=== PATIENT | female | born 1990 | race Caucasian/White ===

== ENCOUNTER 2019-06-13 16:49 | Emergency (ER) | payer SELFPAY | END 2019-06-13 20:01 | disposition home or self-care (01) | PROVIDERS: Family Provider Family Medicine | DX: N20.1 Calculus of ureter (principal); F17.210 Nicotine dependence, cigarettes, uncomplicated; Z88.5 Allergy status to narcotic agent; Z86.73 Personal history of transient ischemic attack (TIA), and cerebral infarction without residual deficits | CPT/HCPCS: 36415; 74177; 80053; 81001; 81025; 83690; 85025; 87086; 96374; 96375; 96376; 99284; J2270 ×2; J2405; Q9967 ==

== ENCOUNTER 2019-06-19 09:46 | Outpatient (CLI) | payer MEDICAID, SELFPAY ==
--- NOTE | 2019-06-19 09:50 | XRR_ITS ---
PROCEDURE INFORMATION: Exam: XR Abdomen, 1 View Exam date and time: 06/19/2019 10:23 AM Age: 28 years old Clinical indication: Condition or disease; Other: HX of right side kidney stone; Prior surgery; Surgery date: 6+ months; Surgery type: C section, date not provided; Additional info: N20.1. TECHNIQUE: Imaging protocol: XR of the abdomen. Views: Frontal supine view of the abdomen. 1 View. COMPARISON: CT Abdomen/Pelvis w IV* [id number] 06/13/2019 7:11 PM FINDINGS: Gastrointestinal tract: The bowel gas pattern is nonspecific. Air filled large bowel including distal rectal gas. Organs: Renal calcification on the left superiorly. 7-8 mm. Small presumed renal calcifications on the right of approximately 4 mm and 3 mm. Tiny renal calcification lower pole left kidney 2 mm. Bones/joints: Unremarkable. XR/XR KUB [id number] IMPRESSION: The bowel gas pattern is nonspecific. Air filled large bowel including distal rectal gas.
== END 2019-06-19 09:47 | disposition home or self-care (01) ==
PROVIDERS: Family Provider Family Medicine; PCP Urology; Visit Provider Urology
DX: Z87.442 Personal history of urinary calculi (principal)
CPT/HCPCS: 74018; 81001; 87086

== ENCOUNTER 2019-06-26 09:58 | Outpatient (CLI) | payer MEDICAID, SELFPAY ==
--- NOTE | 2019-06-26 09:45 | XR_ITS ---
WS: [id number] KUB, 06/26/2019 Clinical Data: ureteral calculus Comparison: KUB, 06/19/2019 Findings: There is a 0.7 cm calcification overlying the upper pole the left kidney and smaller calcifications o verlying the inferior pole of the left kidney. There are also 2 adjacent calcifications overlying the upper pole of the right kidney. There is a probable phlebolith in the left side of the true pelvis. XR/XR KUB [id number] Impression: 1. Bilateral renal calculi unchanged. 2. Presumed phleboliths on the left side of the true pelvis.
== END 2019-06-26 09:59 | disposition home or self-care (01) ==
LOC: RAD 10:02
PROVIDERS: Family Provider Family Medicine; PCP Family Medicine; Visit Provider Urology
DX: N20.0 Calculus of kidney (principal)
CPT/HCPCS: 74018; 81001

== ENCOUNTER 2019-06-30 09:17 | Outpatient (CLI) | payer MEDICAID, SELFPAY ==
--- NOTE | 2019-06-30 09:35 | CT_ITS ---
WS: [id number] CT ABDOMEN PELVIS TECHNIQUE: Noncontrast CT of the abdomen and pelvis with coronal and sagittal reformatted images. CLINICAL INFORMATION: RIGHT URETERAL CALCULUS/CALCULUS OF URETER COMPARISON: DLP: 2197.[address] scans at [facility] use at least one of these dose optimization techniques: automat ed exposure control; mA and/or kV adjustment per patient size (includes targeted exams where dose is matched to clinical indication); or iterative reconstruction. FINDINGS: Noncontrast liver is normal. Normal gallbladder. Normal spleen. Normal gastroesophageal junction. Sli ght atelectasis in the lung bases. Adrenal glands are normal. Bilateral subcentimeter calyceal tip calculi. Previously described right U VJ calculus no longer visualized. Right hydronephrosis has resolved. No obstructing calculi today. Pe lvic phleboliths. Normal caliber abdominal aorta. Interval decrease in size of the right ovarian cyst . CT/CT kidney stone [id number] IMPRESSION: 1. Previously described right UVJ calculus has resolved. No obstructing renal or ureteral calculi today. 2. Subcentimeter bilateral calyceal tip calculi. 3. Previously described right ovarian cyst has resolved.
== END 2019-06-30 09:18 | disposition home or self-care (01) ==
LOC: RAD 09:19
PROVIDERS: Family Provider Family Medicine; PCP Family Medicine; Visit Provider Urology
DX: N20.0 Calculus of kidney (principal)
CPT/HCPCS: 74176; 81001

== ENCOUNTER 2019-08-30 12:23 | Outpatient (RCR) | payer MEDICAID, SELFPAY | END 2019-09-12 23:59 | disposition home or self-care (01) | LOC: SPT 12:23 | PROVIDERS: Family Provider Family Medicine; PCP Family Medicine; Referring Provider Family Medicine; Visit Provider Family Medicine | DX: M54.16 Radiculopathy, lumbar region (principal) | CPT/HCPCS: 97161 ==

== ENCOUNTER 2019-09-13 06:00 | Outpatient (RCR) | payer MEDICAID, SELFPAY | END 2019-10-12 23:59 | disposition home or self-care (01) | LOC: SPT 06:00 | PROVIDERS: Family Provider Family Medicine; PCP Family Medicine; Referring Provider Family Medicine; Visit Provider Family Medicine | DX: M54.16 Radiculopathy, lumbar region (principal) | CPT/HCPCS: 97110; G0283 ==

== ENCOUNTER 2020-02-07 13:16 | Outpatient (CLI) | payer MEDICAID, SELFPAY ==
--- NOTE | 2020-02-07 13:36 | XR_ITS ---
WS: [id number] LATERAL LUMBAR SPINE: 3 view. Lateral radiographs are performed in upright neutral, flexion and extension to the patient's toleranc e. HISTORY: LOW BACK PAIN COMPARISON: 07/12/2017 Normal lumbar alignment. Disc spaces and vertebral body heights are normal. No instability. XR/XR lumbar spine f/e only [id number] IMPRESSION: No lumbar spine instability.
== END 2020-02-07 13:17 | disposition home or self-care (01) ==
LOC: RADWPI 13:19
PROVIDERS: PCP Family Medicine; Visit Provider Nurse Practitioner
DX: M54.5 Low back pain (principal)
CPT/HCPCS: 72120

== ENCOUNTER 2020-02-26 11:49 | Outpatient (CLI) | payer MEDICAID, SELFPAY ==
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
== END 2020-02-26 11:50 | disposition home or self-care (01) ==
PROVIDERS: PCP Family Medicine; Visit Provider Nurse Practitioner
DX: M54.5 Low back pain (principal)
CPT/HCPCS: 72148

== ENCOUNTER 2020-05-23 13:39 | Outpatient (CLI) | payer MEDICAID, SELFPAY ==
--- NOTE | 2020-05-23 13:30 | XR_ITS ---
WS: [id number] ABDOMEN: SUPINE FILM HISTORY: BILATERAL RENAL STONES COMPARISON: 06/26/2019 Normal bowel gas pattern. Normal soft tissues and osseous structures. Right kidney: 2 adjacent calcifications in each measuring 4 mm in the upper pole. No interval change. Left kidney: 7.5 mm calcification mid kidney. No change. XR/XR KUB [id number] IMPRESSION: Bilateral nephrolithiasis without change since 06/26/2019.
== END 2020-05-23 13:40 | disposition home or self-care (01) ==
PROVIDERS: PCP Family Medicine; Visit Provider Nurse Practitioner Family
DX: N20.0 Calculus of kidney (principal)
CPT/HCPCS: 74018; 81003

== ENCOUNTER 2020-07-22 22:02 | Emergency (ER) | payer MEDICAID, SELFPAY ==
[2020-07-22 22:08] VITALS: BP 121/76; PULSE 81; RESP 18; TEMP 37.1; O2SAT 100; BMI 33.9
--- NOTE | 2020-07-22 22:12 | XRR_ITS ---
PROCEDURE INFORMATION: Exam: XR Chest, 1 View Exam date and time: 07/22/2020 10:13 PM Age: 29 years old Clinical indication: Chest pain; Type not specified TECHNIQUE: Imaging protocol: XR of the chest Views: 1 view. COMPARISON: No relevant prior studies available. FINDINGS: Lungs: Unremarkable. No consolidation. Pleural spaces: Unremarkable. No pleural effusion. No pneumothorax. Heart/Mediastinum: Unremarkable. No cardiomegaly. Bones/joints: Unremarkable. XR/XR chest 1V portable [id number] IMPRESSION: No acute findings.
--- NOTE | 2020-07-22 22:12 | ED_ITS ---
HPI - Chest Pain General: Chief Complaint: Chest Pain Stated Complaint: Chest pains, started about 4:30, 5ish Time Seen by Provider: 07/22/20 22:04 Source: patient Mode of arrival: ambulatory Limitations: no limitations History of Present Illness: HPI narrative: Patient is a 29-year-old female who presents to ED today with complaint of substernal chest pain that began around 4:30 PM at rest while watching television. Patient initially thought the discomfort might be related to heartburn so took a Prilosec tablet without relief. Patient tells me she normally suffers from heartburn but states her usual discomfort from this is located to her epigastric region. She complains of pain currently throughout her substernal region. She has no radiation to her discomfort. She does state discomfort seems to be worse with movement. No previous episodes of chest pain. She does report shortness of breath and dizziness when asked. She has no previous cardiac or pulmonary history. She denies lower extremity swelling or calf pain. No recent surgery. No prolonged periods of inactivity. She is not on any hormonal therapies. Patient is an every day smoker. MD complaint: chest pain Onset (ago): hour(s) Timing of current episode: constant Prior episodes: No Onset: during rest Pain location: substernal Pain radiation: none Severity: mild Relieving factors: nothing Exacerbating factors: palpation and movement Associated symptoms: Reports dyspnea; Deny abdominal pain, fever(s), nausea, palpitations, syncope or vomiting Treatment prior to arrival: other (Prilosec) Risk Factors: Coronary artery disease risk factors: smoking history Thoracic aortic dissection risk factors: none Review of Systems Const: Denies: fever(s), chills, body aches, fatigue or malaise Eyes: Denies: change in vision ENMT: Denies: throat pain or odynophagia Card: Reports: chest pain and lightheadedness; Denies: palpitations, irregular heart rhythm, edema, swelling of feet/ankles, syncope, pre-syncope, dyspnea on exertion, orthopnea, leg pain with exertion or acrocyanosis Resp: Reports: dyspnea; Denies: productive cough, non-productive cough, wheezing, pain on inspiration, hemoptysis or chest congestion GI: Reports: heartburn; Denies: abdominal pain, nausea, vomiting, coffee ground emesis or diarrhea : Denies: flank pain, difficulty voiding, dysuria, urinary frequency or urinary urgency Musc: Denies: neck pain, back pain, extremity pain, extremity swelling, joint pain or joint swelling Skin/Breast: Denies: rash Neuro: Denies: headache(s), numbness in extremities, weakness in extremities or sensory changes PFSH ED PFSH: Medical History Bilateral renal stones Ureteral calculus Surgical History H/O section S/P tonsillectomy Social History Smoking and tobacco status: current every day smoker Alcohol intake: never Physical Exam Const: COMMON NORMALS: no acute distress, average body habitus, patient oriented x3, no limitations, healthy appearing, alert and well nourished GENERAL APPEARANCE: cooperative ORIENTATION/CONSCIOUSNESS: Yes awake, Yes oriented to person, Yes oriented to place and Yes oriented to time HENMT: COMMON NORMALS: normocephalic and atraumatic HEAD & SCALP: normocephalic and atraumatic Chest: COMMONS NORMALS: normal inspection of the chest CHEST: Yes tenderness (anterior/TTP over sternum ) Resp: COMMON NORMALS: normal respiratory effort and clear to auscultation bilaterally AUSCULTATION: clear to auscultation bilaterally Cardio: COMMON NORMALS: regular rate and regular rhythm RATE: regular rate RHYTHM: regular rhythm GI: COMMON NORMALS: Normal to inspection, nondistended, normoactive bowel sounds present, Soft to palpation, non-tender, No hepatosplenomegaly present and no masses PALPATION: Yes Soft to palpation and Yes No hepatosplenomegaly present Extremity: COMMON NORMALS: normal to inspection, full ROM, capillary refill normal, no clubbing, cyanosis or edema and no calf tenderness GENERAL: Yes normal exam except as noted Neuro: COMMON NORMALS: patient oriented x3 SENSORIUM/ORIENTATION: Yes alert, Yes oriented to person, Yes oriented to place and Yes oriented to time Skin: COMMON NORMALS: no rashes or lesions noted GENERAL SKIN EXAM: no rashes or lesions noted Course Vital Signs: Vital signs: Vital Signs Temperature 98.7 F 07/22/20 22:08 Pulse Rate 80 07/22/20 23:18 Respiratory Rate 17 07/22/20 23:18 Blood Pressure 101/66 07/22/20 23:18 Pulse Oximetry 98 07/22/20 23:18 MDM - Chest Pain MDM Narrative: Medical decision making narrative: Patient is in no acute distress. Her vital signs are perfect. Patient's work-up including CBC, CMP, CXR, EKG, troponin are all normal. Wells score of 0. She has reproducible chest pain. No abdominal pain. Patient is stable for DC with follow up with PCP if symptoms persist. Return to ED precautions given. Lab Data: Labs: Lab Results 07/22/20 07/22/20 07/22/20 Range/Units 22:20 22:20 22:20 WBC 13.5 H (4.0-10.0) 10^3/ uL RBC 4.11 (4.1-5.3) 10^6/u L Hgb 13.2 (11.5-15.3) g/dL Hct 41.1 (37.0-47.0) % MCV 100.0 H (81-99) fL MCH 32.1 (28.0-34.0) pg MCHC 32.1 (30.0-36.0) g/dL RDW 12.4 (12.1-15.1) % Plt Count 271 (130-400) 10^3/c mm MPV 10.0 (7.4-10.4) fL Neut % (Auto) 61.6 % Lymph % (Auto) 29.5 % [place] % (Auto) 5.4 % Eos % (Auto) 2.7 % Baso % (Auto) 0.4 % Neut # (Auto) 8.31 H (1.8-7.7) 10^3/u L Lymph # (Auto) 4.0 (0.8-4.8) 10^3/u L [place] # (Auto) 0.7 (0.2-0.9) 10^3/u L Eos # (Auto) 0.4 (0.0-0.8) 10^3/u L Baso # (Auto) 0.1 (0.0-0.1) 10^3/u L Nucleated RBC % (a uto) 0 % Nucleated RBCs # 0.0 /100WBC Sodium 140 (136-145) mmol/L Potassium 3.8 (3.5-5.1) mmol/L Chloride 105 (98-107) mmol/L Carbon Dioxide 28 (22-29) mmol/L Anion Gap 10.8 (5-19) BUN 12 (6-20) mg/dL Creatinine 0.7 (0.5-0.9) mg/dL GFR Calculation 100.4 (90-130) mL/min Glucose 76 (65-115) mg/dL Calculated Osmolal ity 289 (285-295) mOsm/k g Calcium 8.8 (8.5-10.5) mg/dL Total Bilirubin 0.2 (0.15-1.2) mg/dL AST 13 (0-32) U/L ALT 17 (0-33) U/L Alkaline Phosphata se 72 (35-105) IU/L Troponin T Gen 5 n g/L 6 (0-10) ng/L Total Protein 7.0 (6.6-8.7) g/dL Albumin 3.9 (3.5-5.2) g/dL Globulin 3.1 (1.3-4.6) g/dL Imaging Data^: CXR: My impression: NAD EKG Data^: EKG 1: EKG interpretation date: 07/22/20 EKG interpretation time: 22:11 Interpretation: Sinus rhythm Rate [address] elevation or depression changes noted Artifact present Discharge Plan Discharge Patient Disposition: Home Clinical Impression: Acute chest wall pain Condition: Stable Prescriptions: No Action hydrocodone-acetaminophen [[place]] 10-325 mg tablet 1 tab PO Q6H PRNRF: 0 Discharge Orders: Discharge ED (Routine); Ordered 07/22/20 Ordered By: Cristina John Referrals: Chaka Gayle MD [Primary Care Provider] - Patient Instructions: Chest Pain - Chest Wall Coding Level of Care Code ED [employer] Consultant for Chg Fwd Exam Comprehensive
--- NOTE | 2020-07-22 22:12 | ECG_ITS ---
[facility] Test Date: 2020-07-22 Pat Name: Patrice Pack Department: Room: Gender: Female Nursing Associate: : 1990 Requested By: Cristina John Order Number: [id number] Laura MD: Daniel Ann M.D. Measurements Intervals [place] Rate: 71 P: -13 MD: 159 QRS: -1 QRSD: 93 T: 9 QT: 372 QTc: 406 Interpretive Statements SINUS RHYTHM LOW QRS VOLTAGE IN PRECORDIAL LEADS [QRS DEFLECTION < 1.0 mV IN CHEST LEADS] POSSIBLE RIGHT VENTRICULAR CONDUCTION DELAY [RSR (QR) IN V1/V2] No previous ECG available for comparison Electronically Signed On 07-23-2020 19:53:19 FUNERAL DIRECTOR AND EMBALMER by Daniel Ann M.D. [id number]
[2020-07-22 22:26] VITALS: BP 121/76; PULSE 81; RESP 17; O2SAT 99
[2020-07-22 22:32] LABS: Basophils # 0.1 10^3/uL (0.0-0.1); Basophils % 0.4 %; Eosinophils # 0.4 10^3/uL (0.0-0.8); Eosinophils % 2.7 %; Hematocrit 41.1 % (37.0-47.0); Hemoglobin 13.2 g/dL (11.5-15.3); Lymphocytes % 29.5 %; Mean Corpuscular HGB Conc 32.1 g/dL (30.0-36.0); Mean Corpuscular Hemoglobin 32.1 pg (28.0-34.0); Monocytes # 0.7 10^3/uL (0.2-0.9); Monocytes % 5.4 %; Neutrophils # 8.31 10^3/uL (1.8-7.7); Neutrophils % 61.6 %; Nucleated Red Blood Cells % 0 %; Platelet Count 271 10^3/cmm (130-400); Red Blood Count 4.11 10^6/uL (4.1-5.3); Red Cell Distribution Width 12.4 % (12.1-15.1); White Blood Count 13.5 10^3/uL (4.0-10.0)
[2020-07-22 22:52] LABS: Alanine Aminotransferase 17 U/L (0-33); Albumin Level 3.9 g/dL (3.5-5.2); Alkaline Phosphatase 72 IU/L (35-105); Anion Gap 10.8 (5-19); Aspartate Amino Transferase 13 U/L (0-32); Blood Urea Nitrogen 12 mg/dL (6-20); Calcium 8.8 mg/dL (8.5-10.5); Carbon Dioxide 28 mmol/L (22-29); Chloride 105 mmol/L (98-107); Globulin 3.1 g/dL (1.3-4.6); Glomerular Filtration Rate 100.4 mL/min (90-130); Glucose 76 mg/dL (65-115); Osmolality Calculated 289 mOsm/kg (285-295); Potassium 3.8 mmol/L (3.5-5.1); Sodium 140 mmol/L (136-145); Total Bilirubin 0.2 mg/dL (0.15-1.2)
[2020-07-22 23:00] VITALS: BP 121/76; PULSE 72; O2SAT 98
[2020-07-22 23:09] LABS: Troponin T (5th) Once 6 ng/L (0-10)
[2020-07-22 23:18] VITALS: BP 101/66; PULSE 80; RESP 17; O2SAT 98
== END 2020-07-22 23:15 | disposition home or self-care (01) ==
PROVIDERS: Emergency Provider Physician Assistant; PCP Family Medicine
DX: R07.89 Other chest pain (principal); F17.210 Nicotine dependence, cigarettes, uncomplicated
CPT/HCPCS: 12345; 71045; 80053; 84484; 85025; 93005; 99282; 99283

== ENCOUNTER 2020-10-29 21:32 | Emergency (ER) | payer MEDICAID, SELFPAY ==
[2020-10-29 21:34] VITALS: BP 111/81; PULSE 82; RESP 18; TEMP 36.9; O2SAT 100; BMI 35.2
[2020-10-29 21:48] LABS: Basophils # 0.1 10^3/uL (0.0-0.1); Basophils % 0.7 %; Eosinophils # 0.3 10^3/uL (0.0-0.8); Eosinophils % 2.3 %; Hematocrit 43.6 % (37.0-47.0); Hemoglobin 14.6 g/dL (11.5-15.3); Lymphocytes # 3.4 10^3/uL (0.8-4.8); Lymphocytes % 28.8 %; Mean Corpuscular HGB Conc 33.5 g/dL (30.0-36.0); Mean Corpuscular Volume 98.6 fL (81-99); Mean Platelet Volume 9.6 fL (7.4-10.4); Monocytes # 0.9 10^3/uL (0.2-0.9); Monocytes % 7.5 %; Neutrophils # 7.09 10^3/uL (1.8-7.7); Neutrophils % 60.3 %; Nucleated Red Blood Cells % 0 %; Platelet Count 244 10^3/cmm (130-400); Red Blood Count 4.42 10^6/uL (4.1-5.3); Red Cell Distribution Width 12.7 % (12.1-15.1); White Blood Count 11.8 10^3/uL (4.0-10.0)
[2020-10-29 21:52] LABS: Add Urine Microscopic? NO; Charge for UA Resulting for Rev
[2020-10-29 21:52] LABS: HCG Qualitative Urine. Negative (Negative)
[2020-10-29 22:04] LABS: Bilirubin Urine 1+ (Negative); Blood Urine Neg (Negative); Glucose Urine UA Norm (Normal); Ketones Urine Negative (Negative); Leukocyte Esterase Urine Negative (Negative); Nitrate Urine Negative (Negative); Protein Urine Neg (Negative); Urine Appearance Clear (CLEAR); Urine Color Yellow (Yellow); Urobilinogen Urine Norm (Negative); pH Urine 5 (5-7)
[2020-10-29 22:04] LABS: Alanine Aminotransferase 10 U/L (0-33); Albumin Level 4.3 g/dL (3.5-5.2); Alkaline Phosphatase 72 IU/L (35-105); Aspartate Amino Transferase 10 U/L (0-32); Blood Urea Nitrogen 14 mg/dL (6-20); Calcium 8.4 mg/dL (8.5-10.5); Carbon Dioxide 24 mmol/L (22-29); Chloride 102 mmol/L (98-107); Glomerular Filtration Rate 85.4 mL/min (90-130); Glucose 91 mg/dL (65-115); Lipase 85 U/L (13-60); Osmolality Calculated 284 mOsm/kg (285-295); Sodium 137 mmol/L (136-145); Total Bilirubin 0.3 mg/dL (0.15-1.2); Total Protein 7.3 g/dL (6.6-8.7)
--- NOTE | 2020-10-29 22:13 | CTR_ITS ---
PROCEDURE INFORMATION: Exam: CT Abdomen And Pelvis With Contrast Exam date and time: 10/29/2020 10:16 PM Age: 30 years old Clinical indication: Abdominal pain; Localized; Right lower quadrant (rlq); Prior surgery; Surgery type: ; Additional info: Abd pain TECHNIQUE: Imaging protocol: Computed tomography of the abdomen and pelvis with contrast. Radiation optimization: All CT scans at this facility use at least one of these dose optimization techniques: automated exposure control; mA and/or kV adjustment per patient size (includes targeted exams where dose is matched to clinical indication); or iterative reconstruction. Contrast material: OMNI 300; Contrast volume: 95 ml; Contrast route: INTRAVENOUS (IV); COMPARISON: CT Abdomen/Pelvis w IV* [id number] 06/13/2019 7:11 PM RADIATION DOSE METRICS: Total DLP (mGy-cm): 2034.47 FINDINGS: Liver: Normal. No mass. Gallbladder and bile ducts: Normal. No calcified stones. No ductal dilation. Pancreas: Normal. No ductal dilation. Spleen: Normal. No splenomegaly. Adrenal glands: Normal. No mass. Kidneys and ureters: Bilateral punctate nonobstructing renal calyceal stones. Stomach and bowel: Unremarkable. No obstruction. No mucosal thickening. Appendix: No evidence of appendicitis. Intraperitoneal space: Small amount of nonspecifc fluid in the pelvis. Vasculature: Unremarkable. No abdominal aortic aneurysm. Lymph nodes: Unremarkable. No enlarged lymph nodes. Urinary bladder: Unremarkable as visualized. Reproductive: Right ovary 2.2 cm peripherally enhancing cyst suggestive of a partially collapsed follicle. Bones/joints: Unremarkable. No acute fracture. Soft tissues: Unremarkable. CT/CT abdomen pelvis w con* [id number] IMPRESSION: 1. Right ovary 2.2 cm peripherally enhancing cyst suggestive of a partially collapsed follicle. 2. Bilateral punctate nonobstructing renal calyceal stones. 3. Small amount of nonspecifc fluid in the pelvis. Radiation Dose CTDIVOL = (mGy): DLP = 2034.47 (mGy-cm)
--- NOTE | 2020-10-29 22:20 | ED_ITS ---
HPI - Abdominal Pain General: Chief Complaint: Abdominal Pain Stated Complaint: RLQ ABD PAIN Time Seen by Provider: 10/29/20 21:35 Source: patient Mode of arrival: ambulatory Limitations: no limitations History of Present Illness: HPI narrative: 30-year-old female states she been having right lower quadrant abdominal pain over the last 4 days. States that this radiates to her right upper quadrant as well at times. States pain is sharp in nature and worse with bending or lifting. States it is improved with rest. States pain is currently a 3 out of 10. Denies any vomiting or diarrhea. Denies any dysuria. Denies any fevers. MD elicited complaint: abdominal pain Associated Symptoms: Denies chills, dysuria and fever(s) Related Data: Date of Last Menstrual Period: 07/05/20 Review of Systems Const: Denies: fever(s), chills, body aches or change in appetite Eyes: Denies: blurry vision or eye discomfort ENMT: Denies: throat pain or dental pain Card: Denies: chest pain Resp: Denies: dyspnea GI: Reports: abdominal pain : Denies: dysuria Musc: Denies: neck pain or back pain Skin/Breast: Denies: rash Neuro: Denies: headache(s) Psych: Denies: depression Syed/Lymph: Denies: easy bruising All/Imm: Denies: urticaria PFSH ED 2 PFSH: Medical History Bilateral renal stones Ureteral calculus Surgical History H/O section S/P tonsillectomy Social History Smoking and tobacco status: current every day smoker Alcohol intake: never Female Reproductive History: Date of last menstrual period: 07/05/20 Physical Exam Const: COMMON NORMALS: no acute distress, patient oriented x3 and healthy appearing HENMT: COMMON NORMALS: normocephalic and atraumatic HEAD & SCALP: normocephalic and atraumatic Eye: COMMON NORMALS: Equal, round and reactive pupils present and EOMs intact bilaterally PUPIL: Yes Equal, round and reactive pupils present Neck/C-Spine: COMMON NORMALS: full ROM and supple Chest: COMMONS NORMALS: normal inspection of the chest and normal palpation of entire chest wall Resp: COMMON NORMALS: normal respiratory effort, No retractions, No use of accessory muscles and clear to auscultation bilaterally AUSCULTATION: clear to auscultation bilaterally Cardio: COMMON NORMALS: regular rate, regular rhythm and No murmurs present (Cardio) RATE: regular rate RHYTHM: regular rhythm GI: COMMON NORMALS: Normal to inspection, nondistended, normoactive bowel so unds present, Soft to palpation and no masses PALPATION: Yes Soft to palpation and Yes Tenderness to palpation present (GI) Details: RLQ Extremity: COMMON NORMALS: normal to inspection and full ROM Neuro: COMMON NORMALS: patient oriented x3, moves all extremities and no focal motor deficits Psych: COMMON NORMALS: mental status grossly normal, Normal thought process present and cooperative THOUGHT PROCESS: Normal thought process present Skin: COMMON NORMALS: no rashes or lesions noted and no wounds GENERAL SKIN EXAM: no rashes or lesions noted Course Vital Signs: Vital signs: Vital Signs Temperature 98.4 F 10/29/20 21:34 Pulse Rate 89 10/29/20 22:59 Respiratory Rate 19 H 10/29/20 22:59 Blood Pressure 94/65 10/29/20 22:59 Pulse Oximetry 96 10/29/20 22:59 MDM - Abdominal Pain MDM Narrative: Medical decision making narrative: Patient presents here with abdominal pain from her ovarian cyst. Patient's pain is much improved. She has no signs appendicitis and her blood work is all normal. She is stable for discharge return if worsening Lab Data: Labs: Lab Results 10/29/20 10/29/20 10/29/20 Range/Units 21:43 21:43 21:43 WBC 11.8 H (4.0-10.0) 10^3/ uL RBC 4.42 (4.1-5.3) 10^6/u L Hgb 14.6 (11.5-15.3) g/dL Hct 43.6 (37.0-47.0) % MCV 98.6 (81-99) fL MCH 33.0 (28.0-34.0) pg MCHC 33.5 (30.0-36.0) g/dL RDW 12.7 (12.1-15.1) % Plt Count 244 (130-400) 10^3/c mm MPV 9.6 (7.4-10.4) fL Neut % (Auto) 60.3 % Lymph % (Auto) 28.8 % [place] % (Auto) 7.5 % Eos % (Auto) 2.3 % Baso % (Auto) 0.7 % Neut # (Auto) 7.09 (1.8-7.7) 10^3/u L Lymph # (Auto) 3.4 (0.8-4.8) 10^3/u L [place] # (Auto) 0.9 (0.2-0.9) 10^3/u L Eos # (Auto) 0.3 (0.0-0.8) 10^3/u L Baso # (Auto) 0.1 (0.0-0.1) 10^3/u L Nucleated RBC % (a uto) 0 % Nucleated RBCs # 0.0 /100WBC Sodium 137 (136-145) mmol/L Potassium 4.0 (3.5-5.1) mmol/L Chloride 102 (98-107) mmol/L Carbon Dioxide 24 (22-29) mmol/L Anion Gap 15.0 (5-19) BUN 14 (6-20) mg/dL Creatinine 0.8 (0.5-0.9) mg/dL GFR Calculation 85.4 L (90-130) mL/min Glucose 91 (65-115) mg/dL Calculated Osmolal ity 284 L (285-295) mOsm/k g Calcium 8.4 L (8.5-10.5) mg/dL Total Bilirubin 0.3 (0.15-1.2) mg/dL AST 10 (0-32) U/L ALT 10 (0-33) U/L Alkaline Phosphata se 72 (35-105) IU/L Total Protein 7.3 (6.6-8.7) g/dL Albumin 4.3 (3.5-5.2) g/dL Globulin 3.0 (1.3-4.6) g/dL Lipase 85 H (13-60) U/L HCG, Qual Negative (Negative) Urine Color (Yellow) Urine Appearance (CLEAR) Urine pH (5-7) Ur Specific Gravit y (1.005-1.030) Urine Protein (Negative) Urine Glucose (UA) (Normal) Urine Ketones (Negative) Urine Blood (Negative) Urine Nitrate (Negative) Urine Bilirubin (Negative) Urine Urobilinogen (Negative) mg/dL Ur Leukocyte Tamiko ase (Negative) 10/29/20 Range/Units 21:47 WBC (4.0-10.0) 10^3/ uL RBC (4.1-5.3) 10^6/u L Hgb (11.5-15.3) g/dL Hct (37.0-47.0) % MCV (81-99) fL MCH (28.0-34.0) pg MCHC (30.0-36.0) g/dL RDW (12.1-15.1) % Plt Count (130-400) 10^3/c mm MPV (7.4-10.4) fL Neut % (Auto) % Lymph % (Auto) % [place] % (Auto) % Eos % (Auto) % Baso % (Auto) % Neut # (Auto) (1.8-7.7) 10^3/u L Lymph # (Auto) (0.8-4.8) 10^3/u L [place] # (Auto) (0.2-0.9) 10^3/u L Eos # (Auto) (0.0-0.8) 10^3/u L Baso # (Auto) (0.0-0.1) 10^3/u L Nucleated RBC % (a uto) % Nucleated RBCs # /100WBC Sodium (136-145) mmol/L Potassium (3.5-5.1) mmol/L Chloride (98-107) mmol/L Carbon Dioxide (22-29) mmol/L Anion Gap (5-19) BUN (6-20) mg/dL Creatinine (0.5-0.9) mg/dL GFR Calculation (90-130) mL/min Glucose (65-115) mg/dL Calculated Osmolal ity (285-295) mOsm/k g Calcium (8.5-10.5) mg/dL Total Bilirubin (0.15-1.2) mg/dL AST (0-32) U/L ALT (0-33) U/L Alkaline Phosphata se (35-105) IU/L Total Protein (6.6-8.7) g/dL Albumin (3.5-5.2) g/dL Globulin (1.3-4.6) g/dL Lipase (13-60) U/L HCG, Qual (Negative) Urine Color Yellow (Yellow) Urine Appearance Clear (CLEAR) Urine pH 5 (5-7) Ur Specific Gravit y 1.030 (1.005-1.030) Urine Protein Neg (Negative) Urine Glucose (UA) Norm (Normal) Urine Ketones Negative (Negative) Urine Blood Neg (Negative) Urine Nitrate Negative (Negative) Urine Bilirubin 1+ H (Negative) Urine Urobilinogen Norm (Negative) mg/dL Ur Leukocyte Tamiko ase Negative (Negative) Imaging Data ^: CT Abd/Pel: Attestation: I personally reviewed and interpreted this imaging study as follows: Radiologist's impression: [facility] [address] [address] [address] Scan Report Signed Patient: Patrice Pack Unit #: [id number] : 1990 Age/Sex: 30 / F ADM Date: 10/29/20 Loc: ER Room/Bed: Attending Dr: Ordering Provider/Ordering MD: Douglas Mckenzie MD Date of Service: 10/29/20 Procedure(s): CT abdomen pelvis w con* [id number] Accession Number(s): [id number] Report Number: [id number] PROCEDURE INFORMATION: Exam: CT Abdomen And Pelvis With Contrast Exam date and time: 10/29/2020 10:16 PM Age: 30 years old Clinical indication: Abdominal pain; Localized; Right lower quadrant (rlq); Prior surgery; Surgery type: ; Additional info: Abd pain TECHNIQUE: Imaging protocol: Computed tomography of the abdomen and pelvis with contrast. Radiation optimization: All CT scans at this facility use at least one of these dose optimization techniques: automated exposure control; mA and/or kV adjustment per patient size (includes targeted exams where dose is matched to clinical indication); or iterative reconstruction. Contrast material: OMNI 300; Contrast volume: 95 ml; Contrast route: INTRAVENOUS (IV); COMPARISON: CT Abdomen/Pelvis w IV* [id number] 06/13/2019 7:11 PM RADIATION DOSE METRICS: Total DLP (mGy-cm): 2033.47 FINDINGS: Liver: Normal. No mass. Gallbladder and bile ducts: Normal. No calcified stones. No ductal dilation. Pancreas: Normal. No ductal dilation. Spleen: Normal. No splenomegaly. Adrenal glands: Normal. No mass. Kidneys and ureters: Bilateral punctate nonobstructing renal calyceal stones. Stomach and bowel: Unremarkable. No obstruction. No mucosal thickening. Appendix: No evidence of appendicitis. Intraperitoneal space: Small amount of nonspecifc fluid in the pelvis. Vasculature: Unremarkable. No abdominal aortic aneurysm. Lymph nodes: Unremarkable. No enlarged lymph nodes. Urinary bladder: Unremarkable as visualized. Reproductive: Right ovary 2.2 cm peripherally enhancing cyst suggestive of a partially collapsed follicle. Bones/joints: Unremarkable. No acute fracture. Soft tissues: Unremarkable. CT/CT abdomen pelvis w con* [id number] IMPRESSION: 1. Right ovary 2.2 cm peripherally enhancing cyst suggestive of a partially collapsed follicle. 2. Bilateral punctate nonobstructing renal calyceal stones. 3. Small amount of nonspecifc fluid in the pelvis. Discharge Plan Discharge Patient Disposition: Home Clinical Impression: Ovarian cyst Qualifiers: Laterality: right Qualified Code(s): N83.201 - Unspecified ovarian cyst, right side Condition: Stable Prescriptions: New hydrocodone-acetaminophen 5-325 mg tablet 1 tab PO Q6H PRN (Reason: pain) Qty: 14 RF: 0 No Action hydrocodone-acetaminophen [[place]] 10-325 mg tablet 1 tab PO Q6H PRNRF: 0 Discharge Orders: Discharge ED (Routine); Ordered 10/29/20 Ordered By: Douglas Mckenzie Referrals: Chaka Gayle MD [Primary Care Provider] - 1-3 days Discharge Diet: Advance as tolerated Discharge Activity: Resume usual activity Patient Instructions: Ovarian Cyst (ED), Opioid Safety Coding Level of Care Code ED Antitank Assault Gunner for Chg Fwd Exam Comprehensive
[2020-10-29] MEDS: iohexol 300 mg/mL 100 mL Btl IV (22:30)
[2020-10-29 22:59] VITALS: BP 94/65; PULSE 89; RESP 19; O2SAT 96
[2020-10-29] MEDS: HYDROcodone-acetaminophen 5-325 mg Tablet 1 TAB PO (23:47)
[2020-10-29 23:53] VITALS: BP 102/64; PULSE 86; RESP 18; O2SAT 99
== END 2020-10-29 23:55 | disposition home or self-care (01) ==
PROVIDERS: Emergency Provider Emergency Medicine; PCP Family Medicine
DX: N83.201 Unspecified ovarian cyst, right side (principal); F17.210 Nicotine dependence, cigarettes, uncomplicated
CPT/HCPCS: 74177; 80053; 81003; 81025; 83690; 85025; 99283; Q9967

== ENCOUNTER 2020-11-21 22:13 | Emergency (ER) | payer MEDICAID, SELFPAY ==
[2020-11-21 22:43] VITALS: BP 102/70; PULSE 98; RESP 18; TEMP 36.3; O2SAT 98; BMI 35.5
--- NOTE | 2020-11-21 22:57 | W.ED.FEVER ---
HPI - Fever General: Chief Complaint: Fever Stated Complaint: FEVER, face pain Time Seen by Provider: 11/21/20 22:50 History of Present Illness: HPI Narrative: Patient complains about nasal congestion pain right side of her face and fever today. Has had drainage and says it is mucousy looking. Was okay up-to-date. MD elicited complaint: fever Onset (ago): hour(s) Associated symptoms: Reports nasal congestion and sinus pain; Deny abdominal pain, chills, chest pain, extremity pain, headache(s), nausea or vomiting Treatments prior to arrival fever: acetaminophen Review of Systems Const: Denies: fever(s), chills or body aches Eyes: Denies: change in vision or blurry vision ENMT: Reports: nasal congestion and sinus pain Card: Denies: chest pain or dyspnea on exertion Resp: Denies: dyspnea, productive cough or non-productive cough GI: Denies: abdominal pain, nausea or vomiting Musc: Denies: extremity pain Skin/Breast: Denies: rash Neuro: Denies: headache(s) Psych: Denies: anxiety or depression Syed/Lymph: Denies: easy bruising PFSH ED PFSH: Medical History Bilateral renal stones Ureteral calculus Surgical History H/O section S/P tonsillectomy Social History Smoking and tobacco status: current every day smoker Alcohol intake: never Female Reproductive History: Date of last menstrual period: 11/04/20 Physical Exam Const: COMMON NORMALS: no acute distress, average body habitus and patient oriented x3 HENMT: COMMON NORMALS: normocephalic HEAD & SCALP: normal to inspection and normocephalic FACE & SINUS: sinus tenderness maxillary (Right side) NOSE: Nasal discharge present mucoid Eye: COMMON NORMALS: conjunctivae normal GENERAL EYE: appearance normal, both eyes and all related structures CONJUNCTIVA: Yes conjunctivae normal Neck/C-Spine: COMMON NORMALS: no JVD Chest: COMMONS NORMALS: normal inspection of the chest Resp: COMMON NORMALS: normal respiratory effort and clear to auscultation bilaterally AUSCULTATION: clear to auscultation bilaterally Cardio: COMMON NORMALS: no JVD, regular rate and regular rhythm RATE: regular rate RHYTHM: regular rhythm GI: COMMON NORMALS: Normal to inspection, nondistended, normoactive bowel sounds present Extremity: COMMON NORMALS: normal to inspection and full ROM Neuro: COMMON NORMALS: patient oriented x3 Course Vital Signs: Vital signs: Vital Signs Temperature 97.3 F L 11/21/20 22:43 Pulse Rate 98 11/21/20 22:43 Respiratory Rate 18 11/21/20 22:43 Blood Pressure 102/70 11/21/20 22:43 Pulse Oximetry 98 11/21/20 22:43 Discharge Plan Discharge Patient Disposition: Home Clinical Impression: Sinusitis, acute maxillary Qualifiers: Recurrence: non-recurrent Qualified Code(s): J01.00 - Acute maxillary sinusitis, unspecified Condition: Stable Prescriptions: New Bactrim DS 800-160 mg tablet 1 tab PO BID 14 Days Qty: 28 RF: 0 Celebrex 100 mg capsule 100 mg PO BID Qty: 20 RF: 0 No Action hydrocodone-acetaminophen [[place]] 10-325 mg tablet 1 tab PO Q6H PRNRF: 0 hydrocodone-acetaminophen 5-325 mg tablet 1 tab PO Q6H PRN (Reason: pain) Qty: 14 RF: 0 Discharge Orders: Discharge ED (Routine); Ordered 11/21/20 Ordered By: Gerald Montoya Referrals: Chaka aGyle MD [Primary Care Provider] - Discharge Diet: Usual diet Discharge Activity: Increase activity as tolerated Patient Instructions: Sinusitis (ED) Activity Restrictions/Additional Instructions: Follow-up with medical provider as directed. Take medications as prescribed. Return to the ER or your medical provider if condition worsens. Please read and understand discharge instructions. If any questions ask please. Coding Level of Care Code ED Curatorial Assistant for Genia Fwd Exam Comprehensive
[2020-11-21] MEDS: sulfamethoxazole-trimeth DS 160-800 mg Tablet 1 TAB PO (23:12)
[2020-11-21] MEDS: CELEcoxib 200 mg Capsule 400 MG PO (23:12)
== END 2020-11-21 23:20 | disposition home or self-care (01) ==
PROVIDERS: Emergency Provider Nurse Practitioner Family; PCP Family Medicine
DX: J01.00 Acute maxillary sinusitis, unspecified (principal); F17.210 Nicotine dependence, cigarettes, uncomplicated
CPT/HCPCS: 99283

== ENCOUNTER 2020-11-24 20:51 | Emergency (ER) | payer MEDICAID, SELFPAY ==
--- NOTE | 2020-11-24 20:52 | XRR_ITS ---
PROCEDURE INFORMATION: Exam: XR Chest Exam date and time: 11/24/2020 8:52 PM Age: 30 years old Clinical indication: Dyspnea; Additional info: SOB TECHNIQUE: Imaging protocol: XR of the chest. Views: 2 views. COMPARISON: CR XR chest 1V portable [id number] 07/22/2020 10:13 PM FINDINGS: Lungs: Bilateral prominent interstitial and bronchovascular markings may reflect a bronchitis, negative for airspace infiltrate. Pleural spaces: Unremarkable. No pleural effusion. No pneumothorax. Heart/Mediastinum: Unremarkable. No cardiomegaly. Bones/joints: Unremarkable. XR/XR chest 2V* [id number] IMPRESSION: Bilateral prominent interstitial and bronchovascular markings may reflect a bronchitis, negative for airspace infiltrate.
[2020-11-24 22:02] VITALS: BP 124/80; PULSE 80; RESP 18; TEMP 36; O2SAT 99; BMI 35.5
[2020-11-24 22:07] VITALS: BP 166/55; PULSE 99; RESP 16; O2SAT 95
--- NOTE | 2020-11-24 23:37 | W.ED.SOB ---
HPI - SOB/Dyspnea General: Chief Complaint: Shortness of Breath/Dyspnea Stated Complaint: SOB Time Seen by Provider: 11/24/20 23:32 History of Present Illness: HPI Narrative: patient comes in for persistent illness, was started on sulfatrim 4 days ago for sinusitis, states cough and chest congestion with feeling of short of breath. 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 MD elicited complaint: shortness of breath Onset (ago): day(s) Exacerbating factors: nothing Relieving factors: rest Known history of: other (smoker) Associated symptoms: Reports chest congestion Treatment prior to arrival: none Review of Systems General: Reports: 10 or more systems reviewed and unremarkable except in HPI and below Resp: Reports: chest congestion [facility] ED PFSH: Medical History Bilateral renal stones Ureteral calculus Surgical History H/O section S/P tonsillectomy Social History Smoking and tobacco status: current every day smoker Alcohol intake: never Female Reproductive History: Date of last menstrual period: 11/04/20 Physical Exam Const: COMMON NORMALS: no acute distress and patient oriented x3 GENERAL APPEARANCE: cooperative HENMT: COMMON NORMALS: normocephalic, TM's normal bilaterally and Normal external nose present HEAD & SCALP: normal to inspection and normocephalic NOSE: Normal external nose present and Nasal discharge present TYMPANIC MEMBRANE: TM's normal bilaterally MOUTH: Normal oral and palatal mucosa present THROAT: posterior oropharynx normal Eye: GENERAL EYE: appearance normal, both eyes and all related structures Neck/C-Spine: COMMON NORMALS: full ROM Lymph: LYMPHATIC: no lymphadenopathy noted Chest: COMMONS NORMALS: normal inspection of the chest Resp: COMMON NORMALS: normal respiratory effort EFFORT & INSPECTION: Yes able to speak in complete sentences AUSCULTATION: wheezes Cardio: COMMON NORMALS: regular rate and regular rhythm RATE: regular rate RHYTHM: regular rhythm GI: COMMON NORMALS: non-tender : COMMON NORMALS: Yes no CVA tenderness BLADDER/KIDNEY EXAM: Yes no CVA tenderness Back/Pelvis: COMMON NORMALS: no CVA tenderness and thoracic and lumbar spine normal to inspection Extremity: COMMON NORMALS: normal to inspection Neuro: COMMON NORMALS: patient oriented x3 and moves all extremities Psych: COMMON NORMALS: mental status grossly normal and cooperative Skin: COMMON NORMALS: no rashes or lesions noted GENERAL SKIN EXAM: no rashes or lesions noted Course Vital Signs: Vital signs: Vital Signs Temperature 96.8 F L 11/24/20 22:02 Pulse Rate 99 11/24/20 22:07 Respiratory Rate 16 11/24/20 22:07 Blood Pressure 166/55 11/24/20 22:07 Pulse Oximetry 95 11/24/20 22:07 MDM - SOB/Dyspnea MDM Narrative: Medical decision making narrative: patient comes in for cough and congestion. exam notes nasal drainage and wheezing. ddx includes pneumonia, covid, bronchitis. CXR normal except for bronchial thickening, covid negative. Treat for brochitis doxycycline, albuterol, and dose of dexamethasone. Lab Data: Labs: Lab Results 11/25/20 Range/Units 00:09 SARS-CoV-2 Ag (Rap id) Negative (Negative) Discharge Plan Discharge Patient Disposition: Home Clinical Impression: Bronchitis Condition: Stable Prescriptions: New doxycycline monohydrate 100 mg capsule 100 mg PO BID 7 Days Qty: 14 RF: 0 albuterol sulfate 90 mcg/actuation HFA aerosol inhaler 2 puff inhalation Q4H PRN (Reason: shortness of breath or wheezing) Qty: 8.5 RF: 0 No Action hydrocodone-acetaminophen [[place]] 10-325 mg tablet 1 tab PO Q6H PRNRF: 0 Bactrim DS 800-160 mg tablet 1 tab PO BID 14 Days Qty: 28 RF: 0 Celebrex 100 mg capsule 100 mg PO BID Qty: 20 RF: 0 hydrocodone-acetaminophen 5-325 mg tablet 1 tab PO Q6H PRN (Reason: pain) Qty: 14 RF: 0 Discharge Orders: Discharge ED (Routine); Ordered 11/25/20 Ordered By: Piero Travis Referrals: Chaka Gayle MD [Primary Care Provider] - Discharge Diet: Usual diet Discharge Activity: Increase activity as tolerated Patient Instructions: Acute Bronchitis (ED), Opioid Safety Activity Restrictions/Additional Instructions: Drink plenty of water, Stop Sulfa-trim. Use inhaler 2 puffs every 4 hours as needed for cough or short of breath. Take medications as directed. Follow-up with primary care in 3 days for recheck Coding Level of Care Code ED Tracer Clerk for Chg Fwd Exam Comprehensive
[2020-11-25 00:41] LABS: SARS Covid-2 Antigen Negative (Negative)
[2020-11-25] MEDS: doxycycline 100 mg Tablet PO (01:42)
--- NOTE | 2020-11-25 01:50 | PC.NURSE ---
Patient given albuterol inhaler and administered two puffs. order never crossed on AUG.
[2020-11-25 01:51] VITALS: BP 121/63; PULSE 72; RESP 16; O2SAT 100
== END 2020-11-25 01:53 | disposition home or self-care (01) ==
PROVIDERS: Emergency Provider Nurse Practitioner Family; PCP Family Medicine
DX: J40 Bronchitis, not specified as acute or chronic (principal); F17.210 Nicotine dependence, cigarettes, uncomplicated
CPT/HCPCS: 71046; 87426; 99283; J3535

== ENCOUNTER 2020-12-19 00:56 | Emergency (ER) | payer MEDICAID, SELFPAY ==
[2020-12-19 01:16] VITALS: BP 96/67; PULSE 82; RESP 16; TEMP 36.5; O2SAT 98; BMI 35.2
--- NOTE | 2020-12-19 01:30 | W.ED.FEMALGU ---
HPI - Female Genitourinary General: Chief complaint: Urogenital-Female Stated complaint: Peeing Blood Time Seen by Provider: 12/19/20 01:19 Source: patient Mode of arrival: ambulatory Limitations: no limitations History of Present Illness: HPI Narrative: Patient is a 30-year-old female who presents to ED today with a complaint of hematuria that she noticed yesterday. Patient does report some very mild lower abdomen cramping. Reports she just finished menstrual cycle 6 days ago. She has no flank pain. She does have a history of kidney/ureter stones but states she always had pain with those previously. She denies urinary frequency, urgency, hesitancy or dysuria. No nausea/vomiting. No fevers. No vaginal bleeding/discharge. MD elicited complaint: other (hematuria) Onset (ago): day(s) (yesterday) Vaginal discharge: none Vaginal bleeding: none Urinary symptoms: Hematuria Exacerbating factors: none Relieving factors: none Associated symptoms: Deny abdominal pain, headache(s) or nausea Treatment prior to arrival: none Sexual activity: Yes Patient : No Date of Last Menstrual Period: 12/19/20 Review of Systems Const: Denies: fever(s), chills, body aches, change in appetite, change in weight, fatigue or malaise ENMT: Denies: throat pain or odynophagia Card: Denies: chest pain Resp: Denies: dyspnea GI: Denies: abdominal pain, nausea, vomiting, diarrhea or change in stool character : Reports: hematuria; Denies: flank pain, difficulty voiding, dysuria, urinary frequency, urinary urgency, urinary hesitancy or dribbling Musc: Denies: neck pain or back pain Skin/Breast: Denies: rash Neuro: Denies: headache(s) PFS ED PFSH: Medical History Bilateral renal stones Ureteral calculus Surgical History H/O section S/P tonsillectomy Social History Smoking and tobacco status: current every day smoker Alcohol intake: never Female Reproductive History: Date of last menstrual period: 12/19/20 Physical Exam Const: COMMON NORMALS: no acute distress, patient oriented x3, no limitations and alert GENERAL APPEARANCE: cooperative Resp: COMMON NORMALS: normal respiratory effort and clear to auscultation bilaterally AUSCULTATION: clear to auscultation bilaterally Cardio: COMMON NORMALS: regular rate and regular rhythm RATE: regular rate RHYTHM: regular rhythm GI: COMMON NORMALS: Normal to inspection, nondistended, normoactive bowel sounds present, Soft to palpation, non-tender, No hepatosplenomegaly present and no masses PALPATION: Yes Soft to palpation and Yes No hepatosplenomegaly present : COMMON NORMALS: Yes no CVA tenderness BLADDER/KIDNEY EXAM: Yes no CVA tenderness Back/Pelvis: COMMON NORMALS: no CVA tenderness Neuro: COMMON NORMALS: patient oriented x3 SENSORIUM/ORIENTATION: Yes alert Course Vital Signs: Vital signs: Vital Signs Temperature 97.7 F 12/19/20 01:16 Pulse Rate 70 12/19/20 02:45 Respiratory Rate 16 12/19/20 02:45 Blood Pressure 109/67 12/19/20 02:45 Pulse Oximetry 97 12/19/20 02:45 MDM - Female MDM Narrative: Medical decision making narrative: Patient clinically appears well. Vital signs are stable. White count mildly elevated at 11.3. Chemistry panel is unremarkable. is negative. UA suspicious for UTI. Will place on Bactrim and told patient I would like her to have repeat UA through primary care next week. Return to ED precautions given. Lab Data: Labs: Lab Results 12/19/20 12/19/20 12/19/20 Range/Units 01:25 01:47 01:47 WBC 11.3 H (4.0-10.0) 10^3/ uL RBC 4.03 L (4.1-5.3) 10^6/u L Hgb 13.2 (11.5-15.3) g/dL Hct 40.0 (37.0-47.0) % MCV 99.3 H (81-99) fL MCH 32.8 (28.0-34.0) pg MCHC 33.0 (30.0-36.0) g/dL RDW 12.2 (12.1-15.1) % Plt Count 254 (130-400) 10^3/c mm MPV 9.5 (7.4-10.4) fL Neut % (Auto) 56.4 % Lymph % (Auto) 34.0 % Andrew % (Auto) 5.7 % Eos % (Auto) 3.1 % Baso % (Auto) 0.5 % Neut # (Auto) 6.39 (1.8-7.7) 10^3/u L Lymph # (Auto) 3.9 (0.8-4.8) 10^3/u L Andrew # (Auto) 0.6 (0.2-0.9) 10^3/u L Eos # (Auto) 0.4 (0.0-0.8) 10^3/u L Baso # (Auto) 0.1 (0.0-0.1) 10^3/u L Nucleated RBC % (a uto) 0 % Nucleated RBCs # 0.0 /100WBC Sodium 139 (136-145) mmol/L Potassium 3.6 (3.5-5.1) mmol/L Chloride 104 (98-107) mmol/L Carbon Dioxide 24 (22-29) mmol/L Anion Gap 14.6 (5-19) BUN 10 (6-20) mg/dL Creatinine 0.7 (0.5-0.9) mg/dL GFR Calculation 99.6 (90-130) mL/min Glucose 93 (65-115) mg/dL Calculated Osmolal ity 287 (285-295) mOsm/k g Calcium 8.8 (8.5-10.5) mg/dL Total Bilirubin 0.2 (0.15-1.2) mg/dL AST 12 (0-32) U/L ALT 20 (0-33) U/L Alkaline Phosphata se 71 (35-105) IU/L Total Protein 6.4 L (6.6-8.7) g/dL Albumin 3.8 (3.5-5.2) g/dL Globulin 2.6 (1.3-4.6) g/dL HCG, Qual (Negative) Urine Color Other (Yellow) Urine Appearance Hazy A (CLEAR) Urine pH 5 (5-7) Ur Specific Gravit y 1.010 (1.005-1.030) Urine Protein 1+ H (Negative) Urine Glucose (UA) Norm (Normal) Urine Ketones Negative (Negative) Urine Blood 3+ H (Negative) Urine Nitrate Negative (Negative) Urine Bilirubin Neg (Negative) Urine Urobilinogen Norm (Negative) mg/dL Ur Leukocyte Tamiko ase 2+ H (Negative) Urine RBC Too numerous to c nt H (0-2) /hpf Urine WBC 0-4 H (0-5) /hpf Ur Squamous Epith Cells 10-15 H (0-5) /hpf Amorphous Sediment Not Reportable Urine Bacteria Trace (NONE) /hpf 12/19/20 Range/Units 01:47 WBC (4.0-10.0) 10^3/ uL RBC (4.1-5.3) 10^6/u L Hgb (11.5-15.3) g/dL Hct (37.0-47.0) % MCV (81-99) fL MCH (28.0-34.0) pg MCHC (30.0-36.0) g/dL RDW (12.1-15.1) % Plt Count (130-400) 10^3/c mm MPV (7.4-10.4) fL Neut % (Auto) % Lymph % (Auto) % Andrew % (Auto) % Eos % (Auto) % Baso % (Auto) % Neut # (Auto) (1.8-7.7) 10^3/u L Lymph # (Auto) (0.8-4.8) 10^3/u L Andrew # (Auto) (0.2-0.9) 10^3/u L Eos # (Auto) (0.0-0.8) 10^3/u L Baso # (Auto) (0.0-0.1) 10^3/u L Nucleated RBC % (a uto) % Nucleated RBCs # /100WBC Sodium (136-145) mmol/L Potassium (3.5-5.1) mmol/L Chloride (98-107) mmol/L Carbon Dioxide (22-29) mmol/L Anion Gap (5-19) BUN (6-20) mg/dL Creatinine (0.5-0.9) mg/dL GFR Calculation (90-130) mL/min Glucose (65-115) mg/dL Calculated Osmolal ity (285-295) mOsm/k g Calcium (8.5-10.5) mg/dL Total Bilirubin (0.15-1.2) mg/dL AST (0-32) U/L ALT (0-33) U/L Alkaline Phosphata se (35-105) IU/L Total Protein (6.6-8.7) g/dL Albumin (3.5-5.2) g/dL Globulin (1.3-4.6) g/dL HCG, Qual Negative (Negative) Urine Color (Yellow) Urine Appearance (CLEAR) Urine pH (5-7) Ur Specific Gravit y (1.005-1.030) Urine Protein (Negative) Urine Glucose (UA) (Normal) Urine Ketones (Negative) Urine Blood (Negative) Urine Nitrate (Negative) Urine Bilirubin (Negative) Urine Urobilinogen (Negative) mg/dL Ur Leukocyte Tamiko ase (Negative) Urine RBC (0-2) /hpf Urine WBC (0-5) /hpf Ur Squamous Epith Cells (0-5) /hpf Amorphous Sediment Urine Bacteria (NONE) /hpf Discharge Plan Discharge Patient Disposition: Home Clinical Impression: Urinary tract infection Qualifiers: Urinary tract infection type: acute cystitis Hematuria presence: with hematuria Qualified Code(s): N30.01 - Acute cystitis with hematuria Condition: Stable Prescriptions: New Bactrim DS 800-160 mg tablet 1 tab PO BID 7 Days Qty: 14 RF: 0 No Action hydrocodone-acetaminophen [Austell] 10-325 mg tablet 1 tab PO Q6H PRNRF: 0 Celebrex 100 mg capsule 100 mg PO BID Qty: 20 RF: 0 hydrocodone-acetaminophen 5-325 mg tablet 1 tab PO Q6H PRN (Reason: pain) Qty: 14 RF: 0 albuterol sulfate 90 mcg/actuation HFA aerosol inhaler 2 puff inhalation Q4H PRN (Reason: shortness of breath or wheezing) Qty: 8.5 RF: 0 Discharge Orders: Discharge ED (Routine); Ordered 12/19/20 Ordered By: Cristina John Referrals: Chaka Gayle MD [Primary Care Provider] - Patient Instructions: Urinary Tract Infection in Women (ED) Coding Level of Care Code ED Director Pharmacology for Chg Fwd Exam Detailed
[2020-12-19 01:41] LABS: Add Urine Microscopic? YES; Bilirubin Urine Neg (Negative); Blood Urine 3+ (Negative); Glucose Urine UA Norm (Normal); Ketones Urine Negative (Negative); Leukocyte Esterase Urine 2+ (Negative); Nitrate Urine Negative (Negative); Protein Urine 1+ (Negative); RBC Urine TOO NUMEROUS TO CNT /hpf (0-2); Urine Appearance Hazy (CLEAR); Urine Color Other (Yellow); Urobilinogen Urine Norm (Negative); WBC Urine 0-4 /hpf (0-5); pH Urine 5 (5-7)
[2020-12-19 01:42] LABS: Add Urine Culture? No; Bacteria Urine TRACE /hpf
[2020-12-19 01:51] VITALS: BP 96/67; RESP 16; O2SAT 97
[2020-12-19 01:56] LABS: Basophils # 0.1 10^3/uL (0.0-0.1); Basophils % 0.5 %; Eosinophils # 0.4 10^3/uL (0.0-0.8); Eosinophils % 3.1 %; Hemoglobin 13.2 g/dL (11.5-15.3); Lymphocytes # 3.9 10^3/uL (0.8-4.8); Mean Corpuscular Hemoglobin 32.8 pg (28.0-34.0); Mean Corpuscular Volume 99.3 fL (81-99); Mean Platelet Volume 9.5 fL (7.4-10.4); Monocytes # 0.6 10^3/uL (0.2-0.9); Monocytes % 5.7 %; Neutrophils # 6.39 10^3/uL (1.8-7.7); Neutrophils % 56.4 %; Nucleated Red Blood Cells % 0 %; Platelet Count 254 10^3/cmm (130-400); Red Blood Count 4.03 10^6/uL (4.1-5.3); Red Cell Distribution Width 12.2 % (12.1-15.1); White Blood Count 11.3 10^3/uL (4.0-10.0)
[2020-12-19 02:16] LABS: HCG, Serum Qual Negative (Negative)
[2020-12-19 02:18] LABS: Alanine Aminotransferase 20 U/L (0-33); Albumin Level 3.8 g/dL (3.5-5.2); Alkaline Phosphatase 71 IU/L (35-105); Anion Gap 14.6 (5-19); Aspartate Amino Transferase 12 U/L (0-32); Blood Urea Nitrogen 10 mg/dL (6-20); Calcium 8.8 mg/dL (8.5-10.5); Carbon Dioxide 24 mmol/L (22-29); Chloride 104 mmol/L (98-107); Globulin 2.6 g/dL (1.3-4.6); Glomerular Filtration Rate 99.6 mL/min (90-130); Glucose 93 mg/dL (65-115); Osmolality Calculated 287 mOsm/kg (285-295); Potassium 3.6 mmol/L (3.5-5.1); Sodium 139 mmol/L (136-145); Total Bilirubin 0.2 mg/dL (0.15-1.2); Total Protein 6.4 g/dL (6.6-8.7)
[2020-12-19 02:45] VITALS: BP 109/67; PULSE 70; RESP 16; O2SAT 97
== END 2020-12-19 02:47 | disposition home or self-care (01) ==
PROVIDERS: Emergency Provider Physician Assistant; PCP Family Medicine
DX: N30.01 Acute cystitis with hematuria (principal); F17.210 Nicotine dependence, cigarettes, uncomplicated
CPT/HCPCS: 80053; 81001; 84703; 85025; 87086; 99283

== ENCOUNTER 2021-09-24 22:38 | Emergency (ER) | payer MEDICAID, SELFPAY ==
[2021-09-24 22:44] VITALS: BP 128/82; PULSE 89; RESP 18; TEMP 36.8; O2SAT 96; BMI 36.0
--- NOTE | 2021-09-24 23:48 | ED_ITS ---
HPI - General Adult General: Chief complaint: General Medical Stated complaint: Bleeding rear End Time Seen by Provider: 09/24/21 23:31 History of Present Illness: 30-year-old female comes in today with complaints of blood in stool for the last 2 weeks. Patient reports occasionally she will sit down to the toilet and express some blood from her stool without straining. Patient denies any severe pain. Patient denies any diarrhea. Patient does have a history of celiac disease. Patient reports no fever or other complaints. MD complaint: Blood in stool Associated symptoms: Deny chest pain, dyspnea or rash Review of Systems General: Reports: 10 or more systems reviewed and unremarkable except in HPI and below Const: Denies: fever(s) Card: Denies: chest pain Resp: Denies: dyspnea GI: Reports: hematochezia : Denies: difficulty voiding Musc: Denies: back pain Skin/Breast: Denies: rash PFSH ED PFSH: Medical History Bilateral renal stones Ureteral calculus Surgical History H/O section S/P tonsillectomy Social History Smoking and tobacco status: current every day smoker Alcohol intake: never Female Reproductive History: Date of last menstrual period: 12/19/20 Physical Exam Const: COMMON NORMALS: alert HENMT: MOUTH: Normal oral and palatal mucosa present Neck/C-Spine: COMMON NORMALS: full ROM Resp: COMMON NORMALS: normal respiratory effort and clear to auscultation bilaterally AUSCULTATION: clear to auscultation bilaterally Cardio: COMMON NORMALS: regular rate and regular rhythm RATE: regular rate RHYTHM: regular rhythm GI: COMMON NORMALS: Soft to palpation PALPATION: Yes Soft to palpation and No Tenderness to palpation present (GI) RECTAL EXAM: normal sphincter tone, No heme positive stool, hemorrhoids (Skin tags to the anal opening) and no tenderness noted : COMMON NORMALS: Yes no CVA tenderness BLADDER/KIDNEY EXAM: Yes no CVA tenderness Back/Pelvis: COMMON NORMALS: no CVA tenderness Extremity: COMMON NORMALS: normal to inspection Neuro: SENSORIUM/ORIENTATION: Yes alert Skin: COMMON NORMALS: no rashes or lesions noted GENERAL SKIN EXAM: no rashes or lesions noted Course Vital Signs: Vital signs: Vital Signs Temperature 98.3 F 09/24/21 22:44 Pulse Rate 87 09/25/21 00:13 Respiratory Rate 16 09/25/21 00:13 Blood Pressure 112/83 09/25/21 00:13 Pulse Oximetry 98 09/25/21 00:13 [facility] - General Adult Medical Decision Making 30-year-old female comes in today for complaints of blood in stool. On exam abdomen soft nontender. Vital signs are normal. Rectal exam noted normal sphincter tone, some anal skin tags. Differential diagnosis includes but not limited to colitis, internal hemorrhoids, mass of the colon. Hemoccult was negative. Stool color was normal. CBC was unremarkable and CMP was normal. No sign of significant illness or need for immediate surgery. Case management was consulted to have patient follow-up with surgery for colonoscopy. Discussed with patient the need for colonoscopy for further investigation of the blood in stool although I do suspect hemorrhoids as patient has several skin tags around the anal opening. Patient reports understanding of care plan need for follow-up or return to the ER for worsening symptoms. Lab Data : 09/24/21 00:47 09/24/21 00:47 Laboratory Results WBC 11.9 10^3/uL (4.0-10.0) H 09/24/21 00:47 RBC 4.10 10^6/uL (4.1-5.3) 09/24/21 00:47 Hgb 13.6 g/dL (11.5-15.3) 09/24/21 00:47 Hct 41.2 % (37.0-47.0) 09/24/21 00:47 MCV 100.5 fl (81-99) H 09/24/21 00:47 MCH 33.2 pg (28.0-34.0) 09/24/21 00:47 MCHC 33.0 g/dL (30.0-36.0) 09/24/21 00:47 RDW 12.3 % (12.1-15.1) 09/24/21 00:47 Plt Count 258 10^3/cmm (130-400) 09/24/21 00:47 MPV 9.5 fL (7.4-10.4) 09/24/21 00:47 Lymph % (Auto) Not Reportable 09/24/21 00:47 Sampson % (Auto) Not Reportable 09/24/21 00:47 Lymph # (Auto) Not Reportable 09/24/21 00:47 Sampson # (Auto) Not Reportable 09/24/21 00:47 Total Counted 100 (0-100) 09/24/21 00:47 Atypical Lymphs % 6.0 % (0-5) H 09/24/21 00:47 Absolute Neutrophils 5.2 10^3/cmm (1.4-6.5) 09/24/21 00:47 Segmented Neutrophils 44 % 09/24/21 00:47 Abs Segm Neuts (Man) 5.2 10/cmm (1.6-7.1) 09/24/21 00:47 Band Neutrophils 0.0 % 09/24/21 00:47 Abs Band Neuts (Man) 0.0 10^3/cmm (0.0-1.2) 09/24/21 00:47 Absolute Lymphocytes 5.6 10^3/cmm (1.2-3.4) H 09/24/21 00:47 Lymphocytes (Manual) 41 % 09/24/21 00:47 Monocytes (Manual) 4.0 % 09/24/21 00:47 Absolute Monocytes 0.5 10^3/cmm (0.1-0.6) 09/24/21 00:47 Eosinophils (Manual) 5 % 09/24/21 00:47 Absolute Eosinophils 0.5 10^3/cmm (0.0-0.7) 09/24/21 00:47 Basophils (Manual) 0.0 % 09/24/21 00:47 Absolute Basophils 0.0 10^3/cmm (0.0-0.2) 09/24/21 00:47 Platelet Estimate Normal (Normal) 09/24/21 00:47 Sodium 136 mmol/L (136-145) 09/24/21 00:47 Potassium 3.9 mmol/L (3.5-5.1) 09/24/21 00:47 Chloride 102 mmol/L (98-107) 09/24/21 00:47 Carbon Dioxide 24 mmol/L (22-29) 09/24/21 00:47 Anion Gap 13.9 (5-19) 09/24/21 00:47 BUN 14 mg/dL (6-20) 09/24/21 00:47 Creatinine 0.8 mg/dL (0.5-0.9) 09/24/21 00:47 GFR Calculation 85.4 mL/min (90-130) L 09/24/21 00:47 Glucose 91 mg/dL (65-115) 09/24/21 00:47 Calculated Osmolality 282 mOsm/kg (285-295) L 09/24/21 00:47 Calcium 9.4 mg/dL (8.5-10.5) 09/24/21 00:47 Total Bilirubin 0.2 mg/dL (0.15-1.2) 09/24/21 00:47 AST 13 U/L (0-32) 09/24/21 00:47 ALT 16 U/L (0-33) 09/24/21 00:47 Alkaline Phosphatase 74 IU/L (35-105) 09/24/21 00:47 Total Protein 6.8 g/dL (6.6-8.7) 09/24/21 00:47 Albumin 4.1 g/dL (3.5-5.2) 09/24/21 00:47 Globulin 2.7 g/dL (1.3-4.6) 09/24/21 00:47 Lipase 43 U/L (13-60) 09/24/21 00:47 Discharge Plan Discharge Patient Disposition: Home Clinical Impression: Ender blood in stool Condition: Stable Prescriptions: No Action Trintellix 10 mg DAILY 0RF Discharge Orders: Discharge ED (Routine); Ordered 09/25/21 Ordered By: Piero Travis Referrals: Chaka Gayle MD [Primary Care Provider] - Discharge Diet: Usual diet Discharge Activity: Increase activity as tolerated Patient Instructions: Melena (ED) Activity Restrictions/Additional Instructions: Avoid use of aspirin, ibuprofen, and naproxen along with other NSAIDs. Use chacha taminophen for pain. Drink plenty of water. Healthy diet as recommended for your celiac disease. Case management will contact you regarding follow-up with surgeon for colonoscopy. Return to ER for high fever, worsening symptoms, and dizziness. Follow-up with primary care as needed. Coding Level of Care Code ED Senior Data Scientist for Chg Fwd Exam Comprehensive
[2021-09-25 00:13] VITALS: BP 112/83; PULSE 87; RESP 16; O2SAT 98
[2021-09-25 00:55] LABS: Hematocrit 41.2 % (37.0-47.0); Hemoglobin 13.6 g/dL (11.5-15.3); Mean Corpuscular Hemoglobin 33.2 pg (28.0-34.0); Mean Corpuscular Volume 100.5 fl (81-99); Mean Platelet Volume 9.5 fL (7.4-10.4); Platelet Count 258 10^3/cmm (130-400); Red Cell Distribution Width 12.3 % (12.1-15.1); White Blood Count 11.9 10^3/uL (4.0-10.0)
[2021-09-25 01:21] LABS: Alanine Aminotransferase 16 U/L (0-33); Albumin Level 4.1 g/dL (3.5-5.2); Alkaline Phosphatase 74 IU/L (35-105); Anion Gap 13.9 (5-19); Aspartate Amino Transferase 13 U/L (0-32); Blood Urea Nitrogen 14 mg/dL (6-20); Calcium 9.4 mg/dL (8.5-10.5); Carbon Dioxide 24 mmol/L (22-29); Chloride 102 mmol/L (98-107); Creatinine Clr Calc Pharmacy 130.0577; Globulin 2.7 g/dL (1.3-4.6); Glomerular Filtration Rate 85.4 mL/min (90-130); Glucose 91 mg/dL (65-115); Lipase 43 U/L (13-60); Osmolality Calculated 282 mOsm/kg (285-295); Potassium 3.9 mmol/L (3.5-5.1); Sodium 136 mmol/L (136-145); Total Bilirubin 0.2 mg/dL (0.15-1.2); Total Protein 6.8 g/dL (6.6-8.7)
[2021-09-25 01:40] LABS: Absolute Eosinophils 0.5 10^3/cmm (0.0-0.7); Absolute Neutrophil 5.2 10^3/cmm (1.4-6.5); Absolute Segmented Neutrophil 5.2 10/cmm (1.6-7.1); Eosinophils 5 %; Lymphocytes 41 %; Lymphocytes Absolute 5.6 10^3/cmm (1.2-3.4); Monocytes Absolute 0.5 10^3/cmm (0.1-0.6); Platelet Estimate Normal (Normal); Segmented Neutrophils 44 %; Total Cells Counted 100 (0-100)
--- NOTE | 2021-09-26 14:50 | DCPLANNER ---
Addendum entered by Agnes Franks 10/15/21 21:29: Patient had a follow up appointment scheduled with general surgery - patient did attend appointment. Addendum entered by Agnes Franks 10/01/21 08:05: Patient has a follow up appointment scheduled for Wednesday, October 08, 2021 at 8:[address] Rivero at general surgery. Clinic will call patient with appointment information. Original Note: construction quality control manager had message to schedule a follow up appointment for patient with general surgery. construction quality control manager sent patients information to the front staff at general surgery. Patients information will be printed and reviewed. Clinic will call patient with appointment information.
== END 2021-09-25 01:55 | disposition home or self-care (01) ==
PROVIDERS: Emergency Provider Nurse Practitioner Family; PCP Family Medicine
DX: K92.1 Melena (principal)
CPT/HCPCS: 80053; 83690; 85007; 85025; 99283

== ENCOUNTER → 2021-10-08 08:01 | Outpatient (BNVA) | payer MEDICAID, SELFPAY | PROVIDERS: PCP Family Medicine; Visit Provider Surgery | DX: K64.4 Residual hemorrhoidal skin tags (principal); K62.5 Hemorrhage of anus and rectum; F17.210 Nicotine dependence, cigarettes, uncomplicated | CPT/HCPCS: 99203 ==

== ENCOUNTER 2021-10-18 21:27 | Emergency (ER) | payer MEDICAID, SELFPAY ==
[2021-10-18 21:31] VITALS: BP 123/84; PULSE 97; RESP 15; TEMP 36.4; O2SAT 99
--- NOTE | 2021-10-18 22:08 | ED_ITS ---
HPI - Eye Problem General: Chief complaint: Eye Problems Stated complaint: fb in eye Time Seen by Provider: 10/18/21 21:36 Source: patient History of Present Illness: 31-year-old female who was fertilizing her yard earlier in the evening. She began to get burning pain to her left eye. She now has some thick discharge to the left eye. Mild blurry vision burning pain MD chief complaint: eye pain, eye redness and eye injury Onset (ago): hour(s) Onset description: sudden Duration: constant Location: left eye Eye Symptoms: burning, redness, pain, foreign body sensation and discharge Place: home Mechanism: chemical exposure Severity: moderate If Pain, Quality: burning Associated symptoms: Denies cough, fever(s), headache(s), nausea, neck pain, rhinorrhea or vomiting Treatments Prior to Arrival: none Review of Systems Const: Denies: fever(s) Eyes: Reports: change in vision, blurry vision, eye discomfort, eye discharge and eye redness ENMT: Denies: throat pain Card: Denies: chest pain or palpitations Resp: Denies: dyspnea, productive cough or non-productive cough GI: Denies: nausea or vomiting Musc: Denies: neck pain Skin/Breast: Denies: rash Neuro: Denies: headache(s) PFSH ED PFSH: Medical History Bilateral renal stones Ureteral calculus Surgical History H/O section S/P tonsillectomy Social History Smoking and tobacco status: current every day smoker Alcohol intake: never Female Reproductive History: Date of last menstrual period: 09/27/21 Physical Exam Const: COMMON NORMALS: no acute distress GENERAL APPEARANCE: cooperative HENMT: COMMON NORMALS: normocephalic, atraumatic and Normal external nose present HEAD & SCALP: normocephalic and atraumatic FACE & SINUS: normal facial exam NOSE: Normal external nose present and Normal nares present Eye: COMMON NORMALS: Equal, round and reactive pupils present and EOMs intact bilaterally VISUAL ORDAZ: No peripheral vision loss ALIGNMENT: Yes alignment normal PERIORBITAL: periorbital findings normal EYELID: eyelids normal CONJUNCTIVA: Yes conjunctival abnormal positive left conjunctival injection and discharge CORNEA: Yes fluorescein used PUPIL: Yes Equal, round and reactive pupils present OTHER: Diffuse uptake of fluorescein left eye no foreign body. Neck/C-Spine: COMMON NORMALS: full ROM Chest: CHEST: Yes Symmetrical chest wall rise Resp: COMMON NORMALS: normal respiratory effort and No use of accessory muscles Cardio: COMMON NORMALS: regular rate and regular rhythm RATE: regular rate RHYTHM: regular rhythm Psych: COMMON NORMALS: cooperative Course Vital Signs: Vital signs: Vital Signs Temperature 97.5 F L 10/18/21 21:31 Pulse Rate 97 10/18/21 21:31 Respiratory Rate 15 10/18/21 21:31 Blood Pressure 123/84 10/18/21 21:31 Pulse Oximetry 99 10/18/21 21:31 MDM - Eye Problem Medical Decision Making Symptoms related to chemical exposure to the eye. Her vision is intact. Pain improved with tetracaine. Diffuse fluorescein uptake. We will place her on antibiotic/steroid drop. Discharge Plan Discharge Patient Disposition: Home Clinical Impression: Acute chemical conjunctivitis Qualifiers: Laterality: left Qualified Code(s): H10.212 - Acute toxic conjunctivitis, left eye Condition: Stable Prescriptions: No Action omeprazole 40 mg capsule,delayed release(DR/EC) 40 mg PO DAILY 0RF Trintellix 10 mg DAILY 0RF Discharge Orders: Discharge ED (Routine); Ordered 10/18/21 Ordered By: Rico Gonzalez Referrals: Chaka Pimentel MD [Physician] - 1-3 days Chaka Gayle MD [Primary Care Provider] - Patient Instructions: Chemical Eye Harris (ED), Conjunctivitis (ED) Activity Restrictions/Additional Instructions: Return for worsening redness, pain, drainage, vision despite treatment. Follow- up with ophthalmology next week. Use the drops you were dispensed in the emergency department, 1 drop every 4 hours while awake for the next 7 days. Do not use contacts until redness is resolved. Coding Level of Care Code ED Waste Reclaimer for Genia Turner Exam Comprehensive
[2021-10-18] MEDS: tetracaine 0.5% Op Soln 4 mL Btl 1 DROP EYE-RIGHT (22:43)
[2021-10-18] MEDS: fluorescein 1 mg Strip EYE-RIGHT (22:43)
[2021-10-18] MEDS: eye irrigation 30 mL Btl EYE-RIGHT (22:43)
[2021-10-18] MEDS: neomycin-poly-dex Op 5 mL Btl 2 DROP EYE-LEFT (22:44)
== END 2021-10-18 22:46 | disposition home or self-care (01) ==
PROVIDERS: Emergency Provider Emergency Medicine; PCP Family Medicine
DX: T65.891A Toxic effect of other specified substances, accidental (unintentional), initial encounter (principal); H10.212 Acute toxic conjunctivitis, left eye; Z77.098 Contact with and (suspected) exposure to other hazardous, chiefly nonmedicinal, chemicals
CPT/HCPCS: 99283

== ENCOUNTER 2021-10-21 08:40 | Day surgery (SDC) | payer MEDICAID, SELFPAY ==
[2021-10-20 13:16] VITALS: BMI 36.0
[2021-10-21] VITALS (9 sets, daily range): BP systolic 96–116; BP diastolic 58–83; PULSE 68–98; RESP 14–20; TEMP 36.2–36.6; O2SAT 97–99
[2021-10-21 09:13] LABS: OR HCG Qualitative Urine Negative (Negative)
--- NOTE | 2021-10-21 09:22 | ANES.PREANE2 ---
Pre-Anesthetic Assessment Height/Weight: Height 1.7 m Weight 104.326 kg Temp Pulse Resp BP Pulse Ox 97.5 F L 98 16 113/83 97 10/21/21 09:05 10/21/21 09:05 10/21/21 09:05 10/21/21 09:05 10/21/21 09:05 Preop Diagnosis: Bleeding per rectum Operation Date: 10/21/21 10:10 Proposed Procedures p Exam Under Anesthesia [id number]/k92.14/k64.9(Not Applicable) - Triston Rivero MD s colonoscopy(Not Applicable) - Triston Rivero MD s Hemorroidectomy(Not Applicable) - Triston Rivero MD s EGD(Not Applicable) - Triston Rivero MD Familial anesthetic complications: none Was Beta Laurence taken within 24 hours: N/A Was Clonidine taken within 24 hours: N/A Last intake: 10/20/21 Social Tobacco Exam alert, oriented x 3, clear to auscultation bilaterally and regular rate & rhythm Airway Submandibular: within normal limits Cervical ROM: within normal limits Mallampati: Class III Dentition: full History/ROS No significant complaints Pulmonary None reported CV/HEM None reported METS >4 None reported ureteral stones Hepatic None reported GI Gastroesophageal Reflux Disease blood on stool Metabolic None reported Musc/skel Lower Back Pain and None reported Neuropsych None reported Anesthetic Plan ASA status: 3 (31 year old female with hx of obesity, bleeding per rectum, GERD, and daily smoking.) Anesthesia: Anesthesia Evaluation, General and MAC Other: I discussed with the patient risks, goals, and benefits of MAC and general anesthesia. We discussed spectrum of MAC anesthesia including conversion to general as well as possibility of recall of intraoperative stimuli including discomfort/pain. Patient agrees to proceed with MAC with possible general as needed. Risk of > 500 ml blood loss (7ml/kg in children): No Medications/Allergies Home Medications Medication Instructions Recorded Confirmed Last Taken Type omeprazole 20 mg tablet,delayed 20 mg PO BID PRN 10/20/21 10/20/21 Unknown History release vortioxetine 20 mg tablet 20 mg PO DAILY 10/20/21 10/21/21 10/21/21 07:00 History (Trintellix) Allergies Allergy/AdvReac Type Severity Reaction Status Date / Time bismuth subsalicylate Allergy SICK TO Verified 10/08/21 17:08 [From Pepto-Bismol] STOMACH ibuprofen Allergy Unknown Verified 10/08/21 17:08 latex Allergy ALGY-Rash Verified 10/08/21 17:08 tramadol Allergy SICK TO Verified 10/08/21 17:08 STOMACH control Allergy Severe ADR-Headach Uncoded 10/18/21 21:34 e PFSH Anesthesia Medical History Bilateral renal stones Ureteral calculus Surgical History H/O section S/P tonsillectomy Social History Smoking and tobacco status: current every day smoker Alcohol intake: never Female Reproductive History Date of last menstrual period: 09/27/21 Data Anesthesia Cardiac Studies: No Data to Display
--- NOTE | 2021-10-21 09:24 | W.PM.OPSUD ---
Surgery/Procedure H&P Update DATE OF PROCEDURE: October 21, 2021 DATE H&P PERFORMED: 10/08/21 H&P UPDATE INFORMATION: I have reviewed H&P completed within last 30 days, I have examined patient prior to procedure and No changes to prior documentation PREOP DIAGNOSIS: Bleeding per rectum PRIMARY INDICATION FOR PROCEDURE: The same PLANNED PROCEDURE: Operation Date: 10/21/21 10:10 Proposed Procedures p Exam Under Anesthesia [id number]/k92.14/k64.9(Not Applicable) - Triston Rivero MD s colonoscopy(Not Applicable) - Triston Rivero MD s Hemorroidectomy(Not Applicable) - Triston Rivero MD s EGD(Not Applicable) - Triston Rivero MD
[2021-10-21] MEDS: acetaminophen 1,000 MG/100 ML PIGGYBACK 400 MG IV (09:38)
[2021-10-21] MEDS: sodium chloride 0.9% 1,000 ML 30 ML IV (09:38)
[2021-10-21] MEDS: piperacillin-tazobactam 3.375 GM in sodium chloride 0.9% (plus) 50 ML IV (09:51)
--- NOTE | 2021-10-21 10:45 | P.OP_ITS ---
Operative Report Date of procedure: October 21, 2021 Pre-op diagnosis: Preop Diagnosis Bleeding per rectum Post-op diagnosis: Prepyloric gastritis GE junction 38 cm Right lower lateral external hemorrhoid Procedure done: 1-EGD and colonoscopy with biopsy 2-Examination under anesthesia 3-Right lower lateral hemorrhoidectomy Implants: Surgicel/Xeroform Specimens removed/disposition: Cold biopsy from the antrum to rule out H. pylori infection' Cold biopsy from the second part of the duodenum to rule out celiac disease Right lower lateral external hemorrhoid Surgeon: Triston Rivero MD Photocopying Machine Operator: Bibiana gil Shari Anesthesia: MAC (levelman Noris) Estimated blood loss (mL): 5 Procedure: Patient was identified in the holding area, was taken to the OR placed first in supine position, timeout was done verifying the patient's name, date of , and procedure, all were in agreement. IV propofol was infused by the DOCUMENT DESIGN SPECIALIST, patient was placed in left lateral position after a bite block was placed in her mouth, started by introducing the EGD via the mouth under direct visualization, the patient was continuously monitored via registered nurse cardiac telemetry, I was able to assess the esophagus stomach and duodenum till the second part, 38 cm GE junction Prepyloric gastritis and mild duodenitis. Cold biopsies were obtained from the antrum to rule out H. pylori infection and from second part of the duodenum to rule out celiac disease. The scope was retrieved under direct visualization and gas was deflated,no biopsies were obtained at that point. Following that a digital rectal examination was done that was normal examination except for right lower lateral hemorrhoid and a smaller left lower lateral external hemorrhoids. Before insertion of the colonoscopy was then introduced via the anus under direct visualization, all the way to the cecum, prep of the colon was appropriate yet it was less adequate towards the right side of the colon, overall there were no polyps identified or masses or diverticular disease or strictures, the scope was then retrieved back ,time for withdrawal exceeded 6 minutes, gas was deflated on the way out. Retroflex was done at the end showing no abnormalities of the anal canal. At that time after scrubbing. Prep and drape was done thereafter under the usual sterile technique,started by pudendal nerve block bilaterally , injecting 30 ml Exparel, guided by the examining finger towards the ischial spine bilaterally, followed by that digital rectal examination showed no masses were appreciated or bleeding. Anoscope was then introduced I was able to identify the internal/external right lower lateral , I placed a wet 4 x 4 inside the anal canal to prevent stools from encroaching on the wound site, that was taken out at the end of the pro cedure. I did apply a hemostat at the origin of the hemorrhoidal tissue, onto the right lower lateral hemorrhoid,using hand-held harmonic device for dissection safeguarding the external anal sphincter after that I was able to deliver the specimen to the circulating nurse, hemostasis was achieved , and running 3-0 chromic catgut suture was applied to approximate the edges of the hemorrhoidectomy site, that was done after thorough irrigation of the wound with warm normal saline . At that point after removal of the 4 x 4'sx1, I applied a piece of Xeroform impregnated lidocaine 2% jelly at the site of the wound and a piece of Surgicel both were rolled up as a Cigar like and and 2-0 silk stitch was applied at the end that faces the exit of the anus as it will be easier to pull out later on, followed by 4 x 4 application and ABD .,a surgical pants was then placed to hold the dressing in place. Count was completed at the end of the procedure, patient was then taken to the recovery room in stable condition Patient tolerated the procedure well and was taken to the recovery area.
[2021-10-21] MEDS: HYDROcodone-acetaminophen 5-325 mg Tablet 1 TAB PO (12:15)
--- NOTE | 2021-10-21 13:18 | ANE.PACU2 ---
Inpatient post-anesthesia follow up: Airway intact: Yes Vital signs: Temperature 97.9 F Pulse Rate 75 Respiratory Rate 16 Blood Pressure 116/68 Pulse Oximetry 99 Oxygen Delivery Me thod Room Air Oxygen Flow Rate Fraction of Inspir ed Oxygen Hydration adequate: Yes Nausea and vomiting: No Pain level: 2 Mental status: Baseline
== END 2021-10-21 12:20 | disposition home or self-care (01) ==
PROVIDERS: Anesthesiology; PCP Family Medicine; Visit Provider Surgery
PROC: (CPT 43239; principal; 2021-10-21 10:00)
PROC: 0DJD8ZZ Inspection of Lower Intestinal Tract, Via Natural or Artificial Opening Endoscopic (ICD-10-PCS; CPT 45378; 2021-10-21 10:00)
PROC: (CPT 43239; 2021-10-21 10:00)
PROC: 0DJ08ZZ Inspection of Upper Intestinal Tract, Via Natural or Artificial Opening Endoscopic (ICD-10-PCS; CPT 43235; 2021-10-21 10:00)
DX: K62.5 Hemorrhage of anus and rectum (principal); K29.70 Gastritis, unspecified, without bleeding; K64.4 Residual hemorrhoidal skin tags; K21.9 Gastro-esophageal reflux disease without esophagitis; F17.200 Nicotine dependence, unspecified, uncomplicated
CPT/HCPCS: 43239; 45380; 46999; 81025; 84703; 88304; 88305; C9290; J2250; J2543; J2704; J3010; J3490; J7030

== ENCOUNTER → 2021-10-29 11:21 | Outpatient (BNVA) | payer MEDICAID, SELFPAY | PROVIDERS: PCP Family Medicine; Visit Provider Surgery | DX: Z98.890 Other specified postprocedural states (principal); Z87.19 Personal history of other diseases of the digestive system ==

== ENCOUNTER → 2021-11-12 09:16 | Outpatient (BNVA) | payer MEDICAID, SELFPAY | PROVIDERS: PCP Family Medicine; Visit Provider Surgery | DX: Z98.890 Other specified postprocedural states (principal); Z87.19 Personal history of other diseases of the digestive system | CPT/HCPCS: 99024 ==

== ENCOUNTER → 2022-02-18 09:29 | Outpatient (BNVA) | payer MEDICAID, SELFPAY | PROVIDERS: PCP Family Medicine; Visit Provider Nurse Practitioner Women's Health | DX: N93.9 Abnormal uterine and vaginal bleeding, unspecified (principal) | CPT/HCPCS: 84443; 84702; 85025; 87491; 87591; 87661 ==

== ENCOUNTER → 2022-02-19 09:13 | Outpatient (BNVA) | payer MEDICAID, SELFPAY | PROVIDERS: PCP Family Medicine; Visit Provider Nurse Practitioner Women's Health | DX: N93.9 Abnormal uterine and vaginal bleeding, unspecified (principal); R79.89 Other specified abnormal findings of blood chemistry | CPT/HCPCS: 84439 ==

== ENCOUNTER → 2022-02-23 13:02 | Outpatient (BNVA) | payer MEDICAID, SELFPAY | PROVIDERS: PCP Family Medicine; Visit Provider Nurse Practitioner Women's Health | DX: N93.9 Abnormal uterine and vaginal bleeding, unspecified (principal) | CPT/HCPCS: 76830 ==

== ENCOUNTER 2022-02-24 18:52 | Emergency (ER) | payer MEDICAID, SELFPAY ==
[2022-02-24 19:00] VITALS: BP 129/85; PULSE 99; RESP 18; TEMP 36.6; O2SAT 97; BMI 37.5
[2022-02-24 19:45] LABS: Basophils % 0.2 %; Hematocrit 45.2 % (37.0-47.0); Hemoglobin 14.7 g/dL (11.5-15.3); Lymphocytes # 3.4 10^3/uL (0.8-4.8); Lymphocytes % 34.1 %; Mean Corpuscular HGB Conc 32.5 g/dL (30.0-36.0); Mean Corpuscular Hemoglobin 32.6 pg (28.0-34.0); Mean Corpuscular Volume 100.2 fl (81-99); Mean Platelet Volume 9.1 fL (7.4-10.4); Monocytes # 0.7 10^3/uL (0.2-0.9); Monocytes % 6.9 %; Neutrophils # 5.48 10^3/uL (1.8-7.7); Neutrophils % 55.6 %; Nucleated Red Blood Cells % 0 %; Platelet Count 259 10^3/cmm (130-400); Red Blood Count 4.51 10^6/uL (4.1-5.3); Red Cell Distribution Width 13.9 % (12.1-15.1); White Blood Count 9.9 10^3/uL (4.0-10.0)
[2022-02-24 20:18] LABS: HCG, Serum Qual Negative (Negative)
[2022-02-24 20:23] LABS: Alanine Aminotransferase 25 U/L (0-33); Albumin Level 3.7 g/dL (3.5-5.2); Alkaline Phosphatase 73 U/L (35-105); Anion Gap 15.2 (5-19); Aspartate Amino Transferase 13 U/L (0-32); Blood Urea Nitrogen 14 mg/dL (6-20); Calcium 8.9 mg/dL (8.5-10.5); Carbon Dioxide 25 mmol/L (22-29); Chloride 104 mmol/L (98-107); Globulin 3.2 g/dL (1.3-4.6); Glomerular Filtration Rate 118.2 mL/min (90-130); Glucose 110 mg/dL (65-115); Osmolality Calculated 291 mOsm/kg (285-295); Potassium 4.2 mmol/L (3.5-5.1); Sodium 140 mmol/L (136-145); Total Bilirubin 0.2 mg/dL (0.15-1.2); Total Protein 6.9 g/dL (6.6-8.7)
--- NOTE | 2022-02-24 22:05 | ED_ITS ---
HPI - General Adult General: Chief complaint: Vaginal Bleeding Stated complaint: heavy vaginal bleeding Time Seen by Provider: 02/24/22 22:05 History of Present Illness: Ms. Pack is a 31-year-old lady who presents to the emergency department for various concerns. She reports symptom onset of respiratory symptoms approximately 3 days ago. She was evaluated at outside ER and diagnosed with pneumonia. She was discharged with doxycycline however no other therapies. She does have a history of tobaccoism. She notes associated chills and generalized malaise. She does have productive cough. Course of symptoms has worsened despite antibiotics. Additionally the patient endorses 1 episode of vomiting associated with starting her Synthroid this morning. She does not report a history of taking this medication prior to her. Patient endorses multiple months of centrally near constant vaginal bleeding that has become worse over the past few days with passing clots. She did fo llow-up with PODOPEDIATRICIAN and was initially prescribed medroxyprogesterone however she reports an allergy to all controls with history of hemorrhagic stroke suspected due to control per patient. Notes some associated lightheadedness. Did have a ultrasound performed. Associated abdominal crampi ng. No other GI symptoms. Negative . Overall course of symptoms has worsened. Intensity is moderate. No other specific changes in health, exacerbating, or alleviating factors identified. Onset (ago): day(s) Severity: moderate Associated symptoms: Reports cough, fevers/chills, nausea and vomiting Review of Systems General: Reports: 10 or more systems reviewed and unremarkable except in HPI and below GI: Reports: nausea and vomiting COUNT INCLUDES THE [facility] ED PFSH: Medical History Bilateral renal stones Bleeding per rectum Celiac disease was told she had celiac disease after an EGD in 2013, but repeat EGD she was told she did not. She has not followed a gluten free diet. External hemorrhoids History of CVA (cerebrovascular accident) (~08/2017) Treated at [facility]. Reported as hemorrhagic stroke, from having been on Depo Provera. History of gout No pertinent past medical history neghx: htn,dm,thyroid,dvt/pe PCP: Dr. Gayle Surgical History H/O section (~2018) Primary Emergent C/S --performed by [facility]. H/O esophagogastroduodenoscopy 2 of these 2013 2021 History of colonoscopy (~10/2021) S/P tonsillectomy Status post hemorrhoidectomy (~10/2021) performed by [facility] Family History Family/Other Breast cancer Maternal Great Grandmother-- dx age unknown Father Diabetes Hypercholesteremia Hypertension Brother Diabetes Hypertension Stroke, Onset Age: 4 Grandmother Diabetes Maternal and Paternal Hypertension Maternal and Paternal Grandfather Diabetes Maternal and Paternal Heart disease Maternal Denies family history of Colon cancer Ovarian cancer Uterine cancer Thyroid disease Female Reproductive History: Date of last menstrual period: 09/27/21 Physical Exam Const: COMMON NORMALS: alert GENERAL APPEARANCE: cooperative and well developed HENMT: COMMON NORMALS: normocephalic and atraumatic HEAD & SCALP: normocephalic and atraumatic Eye: COMMON NORMALS: conjunctivae normal CONJUNCTIVA: Yes conjunctivae normal SCLERA: sclerae normal Neck/C-Spine: COMMON NORMALS: supple GENERAL: Yes trachea midline Resp: COMMON NORMALS: normal respiratory effort EFFORT & INSPECTION: Yes able to speak in complete sentences AUSCULTATION: rhonchi lower bilaterally Cardio: COMMON NORMALS: regular rate and regular rhythm RATE: regular rate RHYTHM: regular rhythm GI: COMMON NORMALS: Soft to palpation PALPATION: Yes Soft to palpation and No Tenderness to palpation present (GI) : OTHER: Pelvic exam performed crop quantitative geneticist present. There is dark red mild amount of blood noted coming from the vaginal introitus. Mild amount of dark red blood including mild pooling in the vaginal vault. Cervix appears closed and normal, blood likely coming from cervical os without other source identified on usual exam. No adnexal masses or tenderness, no uterine tenderness palpation. Extremity: GENERAL: Yes normal exam except as noted and No edema Neuro: COMMON NORMALS: moves all extremities SENSORIUM/ORIENTATION: Yes alert and No Orientation impaired Psych: COMMON NORMALS: mental status grossly normal and Normal thought process present THOUGHT PROCESS: Normal thought process present Course ED course: - Patient was seen and evaluated by me at bedside - Patient placed on cardiac monitors, IV access obtained - Initial evaluation notable for exam as above. - Labs personally interpreted by me - Fluids, headache treatment, steroids, and antibiotic given - Labs notable for no leukocytosis, normal hemoglobin. Metabolic panel without acute derangement. TSH is noted to be elevated with mildly low free T4, patient has just been initiated on levothyroxine. UA without evidence of UTI. Hematuria less likely contaminant given abnormal uterine bleeding. Wet prep negative. - Prior pelvic ultrasound reviewed - Upon serial reexamination after treatment the patient was improved. Repeat hemoglobin within expected range given fluid administration. - Based on patient history, evaluation, and testing as interpreted the most likely cause of the patient's condition is multifactorial including pneumonia with COPD exacerbation/pneumonia that failed treatment with doxycycline was incompletely treated at prior facility. Patient is not requiring supplemental oxygen and does not have respiratory distress. Additionally patient has abnormal/dysfunctional uterine bleeding of uncertain etiology. Given history of stroke temporally correlated with control use I will defer additional prescription of medication to PODOPEDIATRICIAN. I will message case management for PODOPEDIATRICIAN follow-up. - The results of ED evaluation were discussed with the patient including pr escriptions and/or symptomatic cares (if applicable) including appropriate and responsible use, followup plan, and return precautions. The patient verbalized understanding and felt safe for discharge. - Patient discharged in satisfactory condition. Note: Click bubbles or prepopulated villatoro in note writing are used for assistance with data collection and billing and are inherently more limited than narrative and other text portions of this note. Please use narrative for additional clinical history and defer to narrative/free test for any case of contradictory information. If information appears in only free text or click bubble it should be considered present or absent as reported. Please contact note marketing writer for clarifications of clinical information or contradictory information. MDM is a brief summary, contradictory or erroneous seeming information should be clarified and full note should be reviewed. Vital Signs: Vital signs: Vital Signs Temperature 97.9 F 02/24/22 19:00 Pulse Rate 99 02/24/22 22:27 Respiratory Rate 18 02/24/22 22:25 Blood Pressure 129/85 02/24/22 19:00 Pulse Oximetry 98 02/24/22 22:25 Oxygen Delivery Me thod 02/24/22 22:25 MDM - General Adult Medical Decision Making 31-year-old lady presenting with various concerns including dysfunctional uterine bleeding as well as respiratory symptoms that have not improved with prior doxycycline. Patient is nontoxic in appearance and not requiring supplemental oxygen. Satisfactory for outpatient management with strict return precautions. Medical Records I reviewed the patient's medical records. Lab Data I reviewed the patient's lab results. : 02/24/22 23:55 02/24/22 19:38 Laboratory Results WBC 9.9 10^3/uL (4.0-10.0) 02/24/22 19:38 RBC 4.51 10^6/uL (4.1-5.3) 02/24/22 19:38 Hgb 13.8 g/dL (11.5-15.3) 02/24/22 23:55 Hct 42.4 % (37.0-47.0) 02/24/22 23:55 MCV 100.2 fl (81-99) H 02/24/22 19:38 MCH 32.6 pg (28.0-34.0) 02/24/22 19: MCHC 32.5 g/dL (30.0-36.0) 02/24/22 19:38 RDW 13.9 % (12.1-15.1) 02/24/22 19:38 Plt Count 259 10^3/cmm (130-400) 02/24/22 19:38 MPV 9.1 fL (7.4-10.4) 02/24/22 19:38 Neut % (Auto) 55.6 % 02/24/22 19:38 Lymph % (Auto) 34.1 % 02/24/22 19:38 Falls % (Auto) 6.9 % 02/24/22 19:38 Eos % (Auto) 0.0 % 02/24/22 19:38 Baso % (Auto) 0.2 % 02/24/22 19:38 Neut # (Auto) 5.48 10^3/uL (1.8-7.7) 02/24/22 19:38 Lymph # (Auto) 3.4 10^3/uL (0.8-4.8) 02/24/22 19:38 Falls # (Auto) 0.7 10^3/uL (0.2-0.9) 02/24/22 19:38 Eos # (Auto) 0.0 10^3/uL (0.0-0.8) 02/24/22 19:38 Baso # (Auto) 0.0 10^3/uL (0.0-0.1) 02/24/22 19:38 Nucleated RBC % (auto) 0 % 02/24/22 19:38 Nucleated RBCs # 0.0 /100WBC 02/24/22 19:38 Sodium 140 mmol/L (136-145) 02/24/22 19:38 Potassium 4.2 mmol/L (3.5-5.1) 02/24/22 19:38 Chloride 104 mmol/L (98-107) 02/24/22 19:38 Carbon Dioxide 25 mmol/L (22-29) 02/24/22 19:38 Anion Gap 15.2 (5-19) 02/24/22 19:38 BUN 14 mg/dL (6-20) 02/24/22 19:38 Creatinine 0.6 mg/dL (0.5-0.9) 02/24/22 19:38 GFR Calculation 118.2 mL/min (90-130) 02/24/22 19:38 Glucose 110 mg/dL (65-115) 02/24/22 19:38 Calculated Osmolality 291 mOsm/kg (285-295) 02/24/22 19:38 Calcium 8.9 mg/dL (8.5-10.5) 02/24/22 19:38 Total Bilirubin 0.2 mg/dL (0.15-1.2) 02/24/22 19:38 AST 13 U/L (0-32) 02/24/22 19:38 ALT 25 U/L (0-33) 02/24/22 19:38 Alkaline Phosphatase 73 U/L (35-105) 02/24/22 19:38 Total Protein 6.9 g/dL (6.6-8.7) 02/24/22 19:38 Albumin 3.7 g/dL (3.5-5.2) 02/24/22 19:38 Globulin 3.2 g/dL (1.3-4.6) 02/24/22 19:38 TSH 30.66 uIU/mL (0.27-4.20) H 02/24/22 19:38 Free T4 0.39 ng/dL (0.82-1.77) L 02/24/22 19:30 HCG, Qual Negative (Negative) 02/24/22 19:38 Urine Color Other (Yellow) 02/25/22 00:12 Urine Appearance Cloudy (CLEAR) 02/25/22 00:12 Urine pH 5 (5-7) 02/25/22 00:12 Ur Specific [place] 1.020 (1.005-1.030) 02/25/22 00:12 Urine Protein 1+ (Negative) H 02/25/22 00:12 Urine Glucose (UA) Norm (Normal) 02/25/22 00:12 Urine Ketones 1+ (Negative) H 02/25/22 00:12 Urine Blood 3+ (Negative) H 02/25/22 00:12 Urine Nitrate Negative (Negative) 02/25/22 00:12 Urine Bilirubin Neg (Negative) 02/25/22 00:12 Urine Urobilinogen Norm mg/dL (Negative) 02/25/22 00:12 Ur Leukocyte Esterase Trace (Negative) H 02/25/22 00:12 Urine RBC Too numerous to cnt /hpf (0-2) H 02/25/22 00:12 Urine WBC 0-4 /hpf (0-5) H 02/25/22 00:12 Ur Squamous Epith Cells 0-4 /hpf (0-5) H 02/25/22 00:12 Amorphous Sediment Not Reportable 02/25/22 00:12 Urine Bacteria Trace /hpf (NONE) 02/25/22 00:12 Discharge Plan Discharge Patient Disposition: Home Clinical Impression: Pneumonia, Abnormal uterine bleeding (AUB), Elevated TSH Condition: Stable Prescriptions: New prednisone 50 mg tablet 50 mg PO DAILY 5 Days Qty: 5 0RF ondansetron 4 mg tablet,disintegrating 4 mg PO Q8H PRN (Reason: nausea and vomiting) Qty: 15 0RF levofloxacin 750 mg tablet 750 mg PO Q24H 5 Days Qty: 5 0RF albuterol sulfate 90 mcg/actuation HFA aerosol inhaler 2 inh inhalation Q4H Qty: 8.5 1RF No Action medroxyprogesterone [Provera] 10 mg tablet 10 mg PO DAILY Qty: 10 0RF Trintellix 20 mg Tablet 20 mg PO DAILY Protonix 40 mg tablet,delayed release (DR/EC) 40 mg PO DAILY 30 Days Qty: 30 3RF Discharge Orders: Discharge ED (Routine); Ordered 02/25/22 Ordered By: Rom Sun Referrals: Chaka Gayle MD [Primary Care Provider] - Discharge Diet: Usual diet Discharge Activity: Increase activity as tolerated Patient Instructions: Abnormal (Dysfunctional) Uterine Bleeding (ED), Hypothyroidism (ED), Community Acquired Pneumonia (ED) Activity Restrictions/Additional Instructions: Thank you for visiting the emergency department. You were seen and evaluated for worsening respiratory symptoms despite treatment and continued abnormal uterine bleeding. I will switch your antibiotics, please stop taking the doxycycline, in addition I will prescribe steroids given your smoking history and likely underlying lung disease. I recommend albuterol inhaler 2 puffs every 4 hours for 24 hours followed by 2 puffs every 6 hours for 24 hours followed by 2 puffs every 8 hours for 24 hours and then resume normal schedule. Given your history of stroke I will defer decision regarding hormonal treatment back to AGENT. Your hemoglobin did not drop significantly upon retest and I believe that your bleeding can be continue to be monitored in the outpatient setting. I will prescribe antinausea medication Zofran, please take your thyroid medication as prescribed. Please follow-up with your primary care provider. I recommend repeat laboratory studies including thyroid function in 1 week. Return to the emergency department for worsening symptoms despite treatment, soaking more than 2 pads per hour, lightheadedness, chest pain, shortness of breath, or anything else that you are concerned about a feel needs emergency department evaluation. Coding Level of Care Code ED Heating And Ventilating Tender for Genia Turner Exam Comprehensive
[2022-02-24] MEDS: ipratropium-albuterol 3 mL Neb INHALATION (22:23)
[2022-02-24 22:25] VITALS: PULSE 97; RESP 18; O2SAT 98
[2022-02-24 22:27] VITALS: PULSE 99
[2022-02-24 23:13] LABS: Thyroid Stimulating Hormone 30.66 uIU/mL (0.27-4.20)
[2022-02-24] MEDS: levoFLOXacin 750 mg Tablet PO (23:15)
[2022-02-24] MEDS: metoclopramide 5 mg/mL SDV 2 mL 10 MG IVP (23:16)
[2022-02-24] MEDS: diphenhydrAMINE 50 mg/mL SDV 1mL 12.5 MG IVP (23:16)
[2022-02-24] MEDS: sodium chloride 0.9% 1,000 ML 999 ML IV (23:16)
[2022-02-24 23:45] LABS: Free T4 Free Thyroxine 0.39 ng/dL (0.82-1.77)
[2022-02-25] LABS: Hematocrit 42.4 % (37.0-47.0); Hemoglobin 13.8 g/dL (11.5-15.3)
[2022-02-25 00:41] LABS: Add Urine Microscopic? YES; Bilirubin Urine Neg (Negative); Blood Urine 3+ (Negative); Glucose Urine UA Norm (Normal); Ketones Urine 1+ (Negative); Leukocyte Esterase Urine Trace (Negative); Nitrate Urine Negative (Negative); Protein Urine 1+ (Negative); Urine Appearance Cloudy (CLEAR); Urine Color Other (Yellow); Urobilinogen Urine Norm (Negative); pH Urine 5 (5-7)
[2022-02-25 00:42] LABS: Add Urine Culture? No; Bacteria Urine TRACE /hpf; RBC Urine TOO NUMEROUS TO CNT /hpf (0-2); Squamous Epithelial Cell Urine 0-4 /hpf (0-5); WBC Urine 0-4 /hpf (0-5)
--- NOTE | 2022-02-25 11:00 | DCPLANNER ---
Addendum entered by Agnes Franks 03/02/22 15:18: Patient had follow up appointment scheduled with [facility] - patient did attend appointment. Addendum entered by Agnes Franks 02/25/22 15:04: Patient has a follow up appointment scheduled for Wednesday, February 27, 2022 at 11:15 with Renuka Vazquez at [facility]. Clinic will call patient with appointment information. Original Note: plastic manager had message to schedule a follow up appointment for patient with [facility]. plastic manager sent patients information to the front office staff at [facility]. Patients information will be printed and reviewed. Clinic will call patient with appointment information.
== END 2022-02-25 00:47 | disposition home or self-care (01) ==
PROVIDERS: Nurse Practitioner Family; Emergency Provider Emergency Medicine; PCP Family Medicine
DX: J18.9 Pneumonia, unspecified organism (principal); N93.9 Abnormal uterine and vaginal bleeding, unspecified; R94.6 Abnormal results of thyroid function studies
CPT/HCPCS: 36415; 80053; 81001; 84439; 84443; 84703; 85014; 85018; 85025; 87210; 94640; 96361; 96374; 96375; 99284; J1200; J2765; J2930; J7030

== ENCOUNTER → 2022-04-10 07:57 | Outpatient (BNVA) | payer MEDICAID, SELFPAY | PROVIDERS: PCP Family Medicine; Visit Provider Nurse Practitioner Women's Health | DX: N93.9 Abnormal uterine and vaginal bleeding, unspecified (principal) | CPT/HCPCS: 76830 ==

== ENCOUNTER → 2022-04-28 13:00 | Outpatient (BNVA) | payer MEDICAID, SELFPAY | PROVIDERS: PCP Family Medicine; Visit Provider Nurse Practitioner Women's Health | DX: N93.9 Abnormal uterine and vaginal bleeding, unspecified (principal) | CPT/HCPCS: 81025; 88305 ==

== ENCOUNTER → 2022-05-29 15:17 | Outpatient (BNVA) | payer MEDICAID, SELFPAY | PROVIDERS: PCP Family Medicine; Visit Provider Obstetrics & Gynecology | DX: R79.89 Other specified abnormal findings of blood chemistry (principal) | CPT/HCPCS: 80053; 82784; 83516; 84480; 85025; 85651; 86038; 86140; 86431 ==

== ENCOUNTER 2022-07-01 12:25 | Observation (INO) | payer MEDICAID, SELFPAY ==
[2022-06-30 07:58] VITALS: BMI 38.8
[2022-06-30 08:16] LABS: OR HCG Qualitative Urine Negative (Negative)
[2022-06-30 08:17] LABS: Add Urine Microscopic? NO; Charge for UA Resulting for Rev
[2022-06-30 08:22] LABS: Bilirubin Urine Neg (Negative); Blood Urine Neg (Negative); Glucose Urine UA Norm (Normal); Ketones Urine Negative (Negative); Leukocyte Esterase Urine Negative (Negative); Nitrate Urine Negative (Negative); Protein Urine Neg (Negative); Urine Appearance Clear (CLEAR); Urine Color Yellow (Yellow); Urobilinogen Urine Norm (Negative); pH Urine 5 (5-7)
[2022-06-30 08:32] LABS: Basophils # 0.1 10^3/uL (0.0-0.1); Basophils % 0.4 %; Eosinophils # 0.3 10^3/uL (0.0-0.8); Eosinophils % 2.3 %; Hematocrit 41.3 % (37.0-47.0); Hemoglobin 13.5 g/dL (11.5-15.3); Lymphocytes # 2.7 10^3/uL (0.8-4.8); Lymphocytes % 20.6 %; Mean Corpuscular HGB Conc 32.7 g/dL (30.0-36.0); Mean Corpuscular Hemoglobin 31.9 pg (28.0-34.0); Mean Corpuscular Volume 97.6 fl (81-99); Mean Platelet Volume 9.3 fL (7.4-10.4); Monocytes # 0.6 10^3/uL (0.2-0.9); Monocytes % 4.6 %; Neutrophils % 71.3 %; Nucleated Red Blood Cells % 0 %; Platelet Count 299 10^3/cmm (130-400); Red Blood Count 4.23 10^6/uL (4.1-5.3); Red Cell Distribution Width 13.2 % (12.1-15.1); White Blood Count 12.9 10^3/uL (4.0-10.0)
[2022-06-30 09:02] LABS: Alanine Aminotransferase 14 U/L (0-33); Alkaline Phosphatase 69 U/L (35-105); Anion Gap 14.2 (5-19); Aspartate Amino Transferase 11 U/L (0-32); Blood Urea Nitrogen 13 mg/dL (6-20); Calcium 8.5 mg/dL (8.5-10.5); Carbon Dioxide 24 mmol/L (22-29); Chloride 104 mmol/L (98-107); Globulin 3.1 g/dL (1.3-4.6); Glomerular Filtration Rate 118.2 mL/min (90-130); Glucose 93 mg/dL (65-115); Osmolality Calculated 286 mOsm/kg (285-295); Potassium 4.2 mmol/L (3.5-5.1); Sodium 138 mmol/L (136-145); Total Bilirubin 0.2 mg/dL (0.15-1.2); Total Protein 7.1 g/dL (6.6-8.7)
--- NOTE | 2022-06-30 13:16 | ANES.PREANE2 ---
Pre-Anesthetic Assessment Height/Weight: Height 1.7 m Weight 112.491 kg Preop Diagnosis: Abnormal uterine bleeding unresponsive to medical management Operation Date: 07/01/22 07:00 Proposed Procedures p Total Vaginal Hysterectomy 04847,N93.9 PATIENT IS ALLERGIC TO LATEX(Not Applicable) - Néstor Nnuo MD Familial anesthetic complications: none Was Beta Laurence taken within 24 hours: N/A Was Clonidine taken within 24 hours: N/A Social Tobacco and No alcohol Exam alert, oriented x 3 and regular rate & rhythm Airway Submandibular: within normal limits Cervical ROM: within normal limits Mallampati: Class II Dentition: chipped Pulmonary Sleep Apnea Metabolic Thyroid Disease Neuropsych Anxiety and Depression Anesthetic Plan ASA status: 2 Anesthesia: General Medications/Allergies Home Medications Medication Instructions Recorded Confirmed Last Taken Type vortioxetine 20 mg tablet 20 mg PO DAILY 10/20/21 06/30/22 06/30/22 History (Trintellix) albuterol sulfate 90 mcg/actuation 2 inh inhalation Q4H #8.5 grams 02/25/22 06/30/22 Unknown Rx aerosol inhaler levothyroxine 100 mcg capsule 100 mcg PO DAILY 02/27/22 06/30/22 06/30/22 History omeprazole 20 mg capsule,delayed 20 mg PO DAILY PRN Heartburn 05/29/22 06/30/22 06/27/22 History release Allergies Allergy/AdvReac Type Severity Reaction Status Date / Time bismuth subsalicylate Allergy SICK TO Verified 06/30/22 07:55 [From Pepto-Bismol] STOMACH ibuprofen Allergy Unknown Verified 06/30/22 07:55 iodine Allergy ALGY-Rash Verified 06/30/22 07:55 latex Allergy ALGY-Rash Verified 06/30/22 07:55 tramadol Allergy SICK TO Verified 06/30/22 07:55 STOMACH control Allergy Severe ADR-Headach Uncoded 06/30/22 07:55 e [facility] Anesthesia Medical History Allergic rhinitis due to allergen Bilateral renal stones Bleeding per rectum Body mass index (BMI) of greater than 35 to 39.9 with comorbidity Celiac disease was told she had celiac disease after an EGD in 2013, but repeat EGD she was told she did not. She has not followed a gluten free diet. Depression External hemorrhoids History of CVA (cerebrovascular accident) (~08/2017) Treated at [facility]. Reported as hemorrhagic stroke, from having been on Depo Provera. History of gout Hypothyroid (~02/2022) started on levothyroxine 100mcg 02/23/22. Managed by [facility]. No pertinent past medical history neghx: htn,dm,thyroid,dvt/pe PCP: Dr. Gayle Smoker unmotivated to quit Surgical History H/O section (~2018) Primary Emergent C/S --performed by [facility]. H/O esophagogastroduodenoscopy 2 of these 2013 2021 History of colonoscopy (~10/2021) S/P tonsillectomy Status post hemorrhoidectomy (~10/2021) performed by [facility] Family History Family/Other Breast cancer Maternal Great Grandmother-- dx age unknown Father Diabetes Hypercholesteremia Hypertension Brother Diabetes Hypertension Stroke, Onset Age: 4 Grandmother Diabetes Maternal and Paternal Hypertension Maternal and Paternal Grandfather Diabetes Maternal and Paternal Heart disease Maternal Denies family history of Colon cancer Ovarian cancer Uterine cancer Thyroid disease Social History Smoking and tobacco status: current every day smoker (1PPD) Female Reproductive History Date of last menstrual period: 06/07/22 Data Anesthesia 06/30/22 08:20 06/30/22 08:20 Short CBC 06/30/22 Range/Units 08:20 WBC 12.9 H (4.0-10.0) 10^3/uL Hgb 13.5 (11.5-15.3) g/dL Hct 41.3 (37.0-47.0) % MCV 97.6 (81-99) fl Plt Count 299 (130-400) 10^3/cmm Neut % (Auto) 71.3 % Neut # (Auto) 9.20 H (1.8-7.7) 10^3/uL BMP 06/30/22 08:20 Sodium 138 Potassium 4.2 Chloride 104 Carbon Dioxide 24 BUN 13 Creatinine 0.6 Glucose 93 Calcium 8.5 Liver Function 06/30/22 Range/Units 08:20 Total Bilirubin 0.2 (0.15-1.2) mg/dL AST 11 (0-32) U/L ALT 14 (0-33) U/L Alkaline Phosphatase 69 (35-105) U/L Albumin 4.0 (3.5-5.2) g/dL Urine 06/30/22 Range/Units 08:10 Urine Color Yellow (Yellow) Urine Appearance Clear (CLEAR) Urine pH 5 (5-7) Ur Specific [place] 1.020 (1.005-1.030) Urine Protein Neg (Negative) Urine Glucose (UA) Norm (Normal) Urine Ketones Negative (Negative) Urine Nitrate Negative (Negative) Urine Bilirubin Neg (Negative) Ur Leukocyte Esterase Negative (Negative) Blood Bank 06/30/22 08:20 Blood Type O Positive Rho(D) Type Positive Antibody Screen Negative Cardiac Studies: No Data to Display
[2022-07-01] VITALS (25 sets, daily range): BP systolic 92–119; BP diastolic 51–80; PULSE 73–111; RESP 16–20; TEMP 36.2–36.9; O2SAT 93–100
[2022-07-01] MEDS: sodium chloride 0.9% 1,000 ML 30 ML IV (06:34)
[2022-07-01] MEDS: scopolamine 1.5 Patch 1 PATCH TRANSDERMA (06:35)
--- NOTE | 2022-07-01 06:59 | W.PM.OPSUD ---
Surgery/Procedure H&P Update DATE OF PROCEDURE: July 01, 2022 DATE H&P PERFORMED: 06/29/22 H&P UPDATE INFORMATION: I have reviewed H&P completed within last 30 days, I have examined patient prior to procedure and No changes to prior documentation PREOP DIAGNOSIS: Abnormal uterine bleeding unresponsive to medical management PLANNED PROCEDURE: Operation Date: 07/01/22 07:00 Proposed Procedures p Total Vaginal Hysterectomy 67048,N93.9 PATIENT IS ALLERGIC TO LATEX(Not Applicable) - Néstor Nuno MD
[2022-07-01] MEDS: ceFAZolin 2,000 MG in sodium chloride 0.9% (plus) 50 ML 100 MG IV (07:09)
--- NOTE | 2022-07-01 07:44 | P.ANESUD_ITS ---
Pre-Anesthetic Update Pre-Anesthetic Assessment: Date of Surgery/Procedure: 07/01/22 Preop Aida gnosis: Abnormal uterine bleeding unresponsive to medical management Proposed Procedure: Operation Date: 07/01/22 07:00 Proposed Procedures p Total Vaginal Hysterectomy 31737,N93.9 PATIENT IS ALLERGIC TO LATEX(Not Applicable) - Néstor Nuno MD Any changes to Pre-Anesthetic Assessment?: No Last Intake: Intake Last Liquid Date 06/30/22 Last Liquid Time 23:30 Last Solid Date 06/30/22 Last Solid Time 22:00 Labs Last 48hrs: Short CBC 06/30/22 Range/Units 08:20 WBC 12.9 H (4.0-10.0) 10^3/ uL Hgb 13.5 (11.5-15.3) g/dL Hct 41.3 (37.0-47.0) % MCV 97.6 (81-99) fl Plt Count 299 (130-400) 10^3/c mm Neut % (Auto) 71.3 % Neut # (Auto) 9.20 H (1.8-7.7) 10^3/u L BMP 06/30/22 08:20 Sodium 138 Potassium 4.2 Chloride 104 Carbon Dioxide 24 BUN 13 Creatinine 0.6 Glucose 93 Calcium 8.5 Liver Function 06/30/22 Range/Units 08:20 Total Bilirubin 0.2 (0.15-1.2) mg/dL AST 11 (0-32) U/L ALT 14 (0-33) U/L Alkaline Phosphata se 69 (35-105) U/L Albumin 4.0 (3.5-5.2) g/dL Urine 06/30/22 Range/Units 08:10 Urine Color Yellow (Yellow) Urine Appearance Clear (CLEAR) Urine pH 5 (5-7) Ur Specific Gravit y 1.020 (1.005-1.030) Urine Protein Neg (Negative) Urine Glucose (UA) Norm (Normal) Urine Ketones Negative (Negative) Urine Nitrate Negative (Negative) Urine Bilirubin Neg (Negative) Ur Leukocyte Tmaiko ase Negative (Negative) Blood Bank 06/30/22 08:20 Blood Type O Positive Rho(D) Type Positive Antibody Screen Negative Vitals: Temperature 97.1 F L 07/01/22 06:24 Temperature Source Temporal Artery S can 07/01/22 06:24 Pulse Rate 78 07/01/22 06:24 Respiratory Rate 16 07/01/22 06:24 Blood Pressure 113/70 07/01/22 06:24 Blood Pressure Krystina n 84 07/01/22 06:24 Pulse Oximetry 98 07/01/22 06:24 Oxygen Delivery Me thod 07/01/22 06:24 Exam: Pre-Anes Outpt Exam: alert, oriented x 3, clear to auscultation bilaterally and regular rate & rhythm Cardiac Studies: No Data to Display
--- NOTE | 2022-07-01 08:38 | PM.OP ---
Operative Report Date of procedure: July 01, 2022 Pre-op diagnosis: Preop Diagnosis Abnormal uterine bleeding unresponsive to medical management Post-op diagnosis: Same as above Post-op findings: Enlarged uterus Procedure done: Total vaginal hysterectomy with bilateral salpingectomy Specimens removed/disposition: Uterus Left and right fallopian tube Surgeon: Néstor Nuno MD Estimated blood loss (mL): 200 IV fluids (mL): 1,300 Urine output (mL): 150 Complications: None Procedure: After informed consent and risks, benefits, indications and alternatives reviewed with the patient was taken to the operating room. The patient was placed in dorsal lithotomy position prepped, and draped in the usual sterile fashion. The pre-procedure timeout verifying the correct patient, procedure, site and side, could not requirements was performed and acknowledge by the OR team. A Hunt catheter was placed. A Bookwalter vaginal retractor was placed into the vagina in usual manner visualize the cervix. Cervix was grasped with a single tooth tenaculum and circumferentially infiltrated with 2% lidocaine with epinephrine. Then cervix was circumferentially incised with bovie and the bladder was dissected off the pubovesical cervical fascia anteriorly with a sponge stick and Metzenbaum scissors. The anterior peritoneal reflection was identified and the anterior cul-de-sac was entered sharply with Metzenbaum scissors. The same procedure was performed posteriorly and a posterior colpotomy was made through the posterior cul-de-sac space without difficulty and the posterior blade of the Bookwalter vaginal retractor was advanced posteriorly into the cul-de-sac. At this time, the left and right uterosacral ligaments were isolated and ligated with 0 Vicryl. The Enseal device was placed over the uterosacral ligaments on either side and was then used in a serial fashion up through the cardinal ligaments bilaterally cross-clamped, cut, and sealed with the Enseal device. Finally, the uterine arteries were cross-clamped, cut, sealed and ligated with the Enseal device. Hemostasis was assured. The broad ligaments were then serially clamped, sealed and cut with the Enseal device on both sides. Excellent hemostasis was visualized. Both cornua were clamped, sealed and cut with the Enseal device. Then the pedicles were then suture ligated with excellent hemostasis. The uterus was excised and submitted for pathologic evaluation. No other abnormalities were noted in the pelvic cavity. Then the follow-up right fallopian tube was identified grasped with a Kelly and was clamped sealed and cut with the Enseal device. Same procedure was performed for the left fallopian tube. The peritoneum was then closed in a pursestring fashion with 0 Vicryl suture. The vaginal cuff angles were closed with [id number] #0 Vicryl suture on both sides and transfixed with the ipsilateral cardinal and uterosacral ligaments. The remainder of the vaginal cuff was closed with #0 Vicryl in a running locked fashion. At this time, instruments were removed from the vagina at hemostasis assured. Hunt catheter was then noted yielding clear lora urine. The patient was taken out of dorsal lithotomy position and awakened from the general anesthesia. The patient tolerated the procedure well and was taken to the PACU recovery room in a stable condition. Sponge, lap, needle and instruments counts were correct x3.
[2022-07-01] MEDS: fentaNYL 50 mcg/mL INJ 2mL IVP ×2 (09:16→15:26)
[2022-07-01] MEDS: meperidine 50 mg/mL INJ 12.5 MG IVP (09:21)
[2022-07-01] MEDS: HYDROcodone-acetaminophen 5-325 mg Tablet PO ×4 (10:24→21:50)
[2022-07-01] MEDS: dextrose 5%-lactated ringers 1,000 ML 125 ML IV ×2 (13:10→21:47)
--- NOTE | 2022-07-01 13:52 | ANE.PACU2 ---
Inpatient post-anesthesia follow up: Airway intact: Yes Vital signs: Temperature 97.2 F Pulse Rate 73 Respiratory Rate 18 Blood Pressure 111/71 Pulse Oximetry 98 Oxygen Delivery Me thod Room Air Oxygen Flow Rate 6 Fraction of Inspir ed Oxygen Hydration adequate: Yes Nausea and vomiting: No Pain level: 3 Mental status: Baseline
[2022-07-01] MEDS: nicotine 21 mg Patch 1 PATCH TRANSDERMA (13:59)
[2022-07-01] MEDS: docusate sodium 100 mg Capsule PO (17:43)
[2022-07-02] MEDS: HYDROcodone-acetaminophen 5-325 mg Tablet PO ×2 (02:22→06:18)
--- NOTE | 2022-07-02 04:35 | PC.NURSE ---
This nurse and Héctor Parry RN examined the pt's vagina and no vaginal packing noted. This nurse the pt's labia and examined as in depth as possible and no packing was visualized.
[2022-07-02 04:41] VITALS: BP 104/67; PULSE 73; RESP 17; TEMP 36.9; O2SAT 97
--- NOTE | 2022-07-02 04:42 | PC.NURSE ---
Boyle catheter was removed at this time. 10 ml of normal saline removed from boyle bulb and then boyle was removed. Catheter intact upon removal. Patient tolerated procedure well. Nurse then attempted to remove vaginal packing but was not able to locate any packing. I got the patients nurse also the charge nurse for marj yusuf who also inspected and did not find any vaginal packing.
[2022-07-02 04:45] LABS: Hematocrit 35.8 % (37.0-47.0); Hemoglobin 11.6 g/dL (11.5-15.3); Mean Corpuscular HGB Conc 32.4 g/dL (30.0-36.0); Mean Corpuscular Hemoglobin 31.8 pg (28.0-34.0); Mean Corpuscular Volume 98.1 fl (81-99); Mean Platelet Volume 9.6 fL (7.4-10.4); Platelet Count 301 10^3/cmm (130-400); Red Blood Count 3.65 10^6/uL (4.1-5.3); Red Cell Distribution Width 13.2 % (12.1-15.1); White Blood Count 19.6 10^3/uL (4.0-10.0)
--- NOTE | 2022-07-02 09:16 | PM.OBGYDC ---
Discharge Providers MARKETING/SALES PERSON Date of Admission: 07/01/22 12:25 Date of Discharge: 07/02/22 Attending Provider at Admission: Néstor Nuno MD Attending Provider at Discharge: Néstor Nuno MD Primary Care Provider: Chaka Gayle MD Reason for Visit Reason for Visit: abnormal uterine and vaginal bleeding, unspecified Hospital Course Hospital Course Mrs. [id number] female with a history of abnormal uterine bleeding unresponsive to medical management. Admitted for planned total vaginal hysterectomy. The procedure was performed without complications. Overnight observation was uneventful. She is tolerating diet well. Ambulating without difficulty. She is afebrile and hemodynamically stable postoperative day 1. The patient she was counseled regarding pelvic rest for 6 weeks (no sex, no tampons, no vaginal douches). Return to the emergency room if any fever, increased bleeding or pain. Physical Exam Narrative: GA: Alert and oriented ?3. HEENT: WNL. Heart: Regular rate and rhythm. Lungs: Clear to auscultation bilaterally. Abdomen: Bowel sounds present, nontender, minimal tenderness, incision clean and dry, no redness, pain or edema. MANAGEMENT PROFESSIONAL: No bleeding. Extremities: No edema, no cyanosis, no calves pain. Urinary Catheter Management: Hunt: Cath Placed During This Visit: yes, but has since been removed by the nurse Reason for Continuing Indwelling Catheter: Decision to DC Catheter Urinary Catheter Date of Insertion: 07/01/22 Urinary Catheter Time of Insertion: 07:25 Date Urinary Catheter Removed: 07/02/22 Time Urinary Catheter Discontinued: 04:44 History History History 5 Term 4 0 Miscarriages/Ectopic 1 Living Children 4 Discharge Data Studies Completed and Pending Pending at discharge Category Date Time Status Pathology: Surgical [PTH] Routine Pth 07/01/22 08:43 Received Laboratory Results WBC 19.6 10^3/uL (4.0-10.0) H 07/02/22 04:15 RBC 3.65 10^6/uL (4.1-5.3) L 07/02/22 04:15 Hgb 11.6 g/dL (11.5-15.3) 07/02/22 04:15 Hct 35.8 % (37.0-47.0) L 07/02/22 04:15 MCV 98.1 fl (81-99) 07/02/22 04:15 MCH 31.8 pg (28.0-34.0) 07/02/22 04:15 MCHC 32.4 g/dL (30.0-36.0) 07/02/22 04:15 RDW 13.2 % (12.1-15.1) 07/02/22 04:15 Plt Count 301 10^3/cmm (130-400) 07/02/22 04:15 MPV 9.6 fL (7.4-10.4) 07/02/22 04:15 Neut % (Auto) 71.3 % 06/30/22 08:20 Lymph % (Auto) 20.6 % 06/30/22 08:20 [place] % (Auto) 4.6 % 06/30/22 08:20 Eos % (Auto) 2.3 % 06/30/22 08:20 Baso % (Auto) 0.4 % 06/30/22 08:20 Neut # (Auto) 9.20 10^3/uL (1.8-7.7) H 06/30/22 08:20 Lymph # (Auto) 2.7 10^3/uL (0.8-4.8) 06/30/22 08:20 [place] # (Auto) 0.6 10^3/uL (0.2-0.9) 06/30/22 08:20 Eos # (Auto) 0.3 10^3/uL (0.0-0.8) 06/30/22 08:20 Baso # (Auto) 0.1 10^3/uL (0.0-0.1) 06/30/22 08:20 Nucleated RBC % (auto) 0 % 06/30/22 08:20 Nucleated RBCs # 0.0 /100WBC 06/30/22 08:20 Sodium 138 mmol/L (136-145) 06/30/22 08:20 Potassium 4.2 mmol/L (3.5-5.1) 06/30/22 08:20 Chloride 104 mmol/L (98-107) 06/30/22 08:20 Carbon Dioxide 24 mmol/L (22-29) 06/30/22 08:20 Anion Gap 14.2 (5-19) 06/30/22 08:20 BUN 13 mg/dL (6-20) 06/30/22 08:20 Creatinine 0.6 mg/dL (0.5-0.9) 06/30/22 08:20 GFR Calculation 118.2 mL/min (90-130) 06/30/22 08:20 Glucose 93 mg/dL (65-115) 06/30/22 08:20 Calculated Osmolality 286 mOsm/kg (285-295) 06/30/22 08:20 Calcium 8.5 mg/dL (8.5-10.5) 06/30/22 08:20 Total Bilirubin 0.2 mg/dL (0.15-1.2) 06/30/22 08:20 AST 11 U/L (0-32) 06/30/22 08:20 ALT 14 U/L (0-33) 06/30/22 08:20 Alkaline Phosphatase 69 U/L (35-105) 06/30/22 08:20 Total Protein 7.1 g/dL (6.6-8.7) 06/30/22 08:20 Albumin 4.0 g/dL (3.5-5.2) 06/30/22 08:20 Globulin 3.1 g/dL (1.3-4.6) 06/30/22 08:20 Urine Color Yellow (Yellow) 06/30/22 08:10 Urine Appearance Clear (CLEAR) 06/30/22 08:10 Urine pH 5 (5-7) 06/30/22 08:10 Ur Specific [place] 1.020 (1.005-1.030) 06/30/22 08:10 Urine Protein Neg (Negative) 06/30/22 08:10 Urine Glucose (UA) Norm (Normal) 06/30/22 08:10 Urine Ketones Negative (Negative) 06/30/22 08:10 Urine Blood Neg (Negative) 06/30/22 08:10 Urine Nitrate Negative (Negative) 06/30/22 08:10 Urine Bilirubin Neg (Negative) 06/30/22 08:10 Urine Urobilinogen Norm mg/dL (Negative) 06/30/22 08:10 Ur Leukocyte Esterase Negative (Negative) 06/30/22 08:10 Urine HCG, Qual Negative (Negative) 06/30/22 07:52 Blood Type O Positive 06/30/22 08:20 Rho(D) Type Positive 06/30/22 08:20 Antibody Screen Negative 06/30/22 08:20 Vitals Last Vital Signs Temp 98.5 F 07/02/22 04:41 Pulse 73 07/02/22 04:41 Resp 17 07/02/22 04:41 BP 104/67 07/02/22 04:41 Pulse Ox 97 07/02/22 04:41 O2 Del Method 07/02/22 04:41 O2 Flow Rate 6 07/02/22 08:00 Discharge Plan Discharge Patient Disposition: Home Condition: Stable Prescriptions: New hydrocodone-acetaminophen 5-325 mg tablet 1 tab PO Q4H PRN (Reason: pain) Qty: 20 0RF acetaminophen 325 mg capsule 325 mg PO Q4H PRN (Reason: fever or pain) Qty: 60 0RF No Action levothyroxine 100 mcg capsule 100 mcg PO DAILY omeprazole 20 mg capsule,delayed release(DR/EC) 20 mg PO DAILY PRN (Reason: Heartburn) Trintellix 20 mg Tablet 20 mg PO DAILY albuterol sulfate 90 mcg/actuation HFA aerosol inhaler 2 inh inhalation Q4H Qty: 8.5 1RF Discharge Orders: Discharge Order (Routine); Ordered 07/02/22 Ordered By: Néstor Nuno Referrals: Néstor Nuno MD [Physician] - 2 weeks Discharge Diet: Usual diet Patient Instructions: Vaginal Hysterectomy (GEN), OB Abdominal Surgery - [facility], OB Discharge Report, OB Laproscopic Surgery - [facility], OB Food/Drug Interaction Guide, Opioid Safety Activity Restrictions/Additional Instructions: 1. Please call [facility] on next working day to make your post-operative appointment in 2 weeks. 2. Please stay home until you come back to the clinic on first post-operative check up. 3. Please follow instructions on your medications CAREFULLY. 4. If you have abdominal incision, do not cover it unless dressing is necessary because of drainage. OK to shower, but avoid bath. Leave steri-strips until they fall off. If they are still on one week after surgery, you may remove them. 5. If you had vaginal surgery or vaginal repair, Dr. Nuno may instruct you to take SITZ bath. 6. Yellow, blood tinged odorous vaginal discharge is usually normal after hysterectomy or vaginal surgeries. 7. No sexual intercourse, tampons, or douches until you are completely released from the post-operative care. 8. Avoid constipation by eating right and maybe using some Metamucil or Milk of Magnesia. 9. All prescription refills are given during the working hours. Please do no wait till it runs out. Call the clinic at [phone] before your medication runs out. The clinic will get in touch with your doctor to prescribe medications if necessary. 10. Please remain within 40 mile radius from our hospital because emergencies do happen now and then during the post-operative period. 11. If you have stairs at home, take one step at a time slowly and minimize the number of trips. It helps to stay in one floor for the next few days. No lifting except what you can lift by one hand until you are released from the post-operative care. 12. Driving is discouraged until you are well healed. It may be 3-4 weeks before you feel strong enough to drive. You should be able to turn and look through the rear window without pain and you should be able to push the brake pedal very hard without pain before you drive. No fast rules, but SAFETY should be your primary concern. DO NOT drive if you are on sedating medications such as narcotics. 13. Call the clinic (during working hours) to make urgent appointment or go to the Emergency room, if any of the following occurs: i. Vaginal bleeding becomes heavy, more than a period. ii. Incision becomes red and sore, or drains pus. iii. Your temperature is over 100.4 or you have chill. iv. IV site becomes red and swollen (a little ``knot?? is usually OK) v. Persistent nausea and vomiting vi. Persistent constipation or diarrhea vii. Rash or allergic reaction to medications. Discharge Attestations MARKETING/SALES PERSON Time Spent in Discharge Care*: greater than 30 min Coding Level of Care Code Acute Code for Chg Fwd
[2022-07-02 09:45] VITALS: BP 107/70; PULSE 69; RESP 16; TEMP 36.8
[2022-07-02 09:50] VITALS: BP 107/70; PULSE 69; RESP 16; TEMP 36.8
== END 2022-07-02 09:50 | disposition home or self-care (01) ==
LOC: OBGYN 07-02 00:25
PROVIDERS: Admitting Provider Obstetrics & Gynecology; PCP Family Medicine; Visit Provider Obstetrics & Gynecology
PROC: (CPT 58262; principal; 2022-07-01 07:00)
DX: N93.9 Abnormal uterine and vaginal bleeding, unspecified (principal); N85.2 Hypertrophy of uterus; G47.30 Sleep apnea, unspecified; F41.9 Anxiety disorder, unspecified; F32.A Depression, unspecified
CPT/HCPCS: 58262; 36415; 80053; 81003; 81025; 84703; 85025; 85027; 86850; 86900; 88307; 96374; G0378; J0690; J1100; J1170; J2175; J2250; J2405; J2704; J3010; J3490; J3535; J7030; J7121

== ENCOUNTER 2022-07-06 19:57 | Emergency (ER) | payer MEDICAID, SELFPAY ==
[2022-07-06 20:09] VITALS: BP 106/71; PULSE 115; RESP 18; TEMP 36.6; O2SAT 97
[2022-07-06 20:52] LABS: Basophils # 0.1 10^3/uL (0.0-0.1); Basophils % 0.3 %; Eosinophils # 0.4 10^3/uL (0.0-0.8); Eosinophils % 2.5 %; Hematocrit 42.6 % (37.0-47.0); Hemoglobin 13.8 g/dL (11.5-15.3); Lymphocytes # 3.5 10^3/uL (0.8-4.8); Mean Corpuscular HGB Conc 32.4 g/dL (30.0-36.0); Mean Corpuscular Hemoglobin 31.5 pg (28.0-34.0); Mean Corpuscular Volume 97.3 fl (81-99); Mean Platelet Volume 9.1 fL (7.4-10.4); Monocytes # 0.7 10^3/uL (0.2-0.9); Monocytes % 4.6 %; Neutrophils # 10.44 10^3/uL (1.8-7.7); Neutrophils % 68.6 %; Nucleated Red Blood Cells % 0 %; Platelet Count 357 10^3/cmm (130-400); Red Blood Count 4.38 10^6/uL (4.1-5.3); Red Cell Distribution Width 13.3 % (12.1-15.1); White Blood Count 15.2 10^3/uL (4.0-10.0)
[2022-07-06 21:17] LABS: Alanine Aminotransferase 20 U/L (0-33); Albumin Level 4.1 g/dL (3.5-5.2); Alkaline Phosphatase 75 U/L (35-105); Aspartate Amino Transferase 18 U/L (0-32); Blood Urea Nitrogen 12 mg/dL (6-20); Carbon Dioxide 28 mmol/L (22-29); Chloride 104 mmol/L (98-107); Globulin 3.3 g/dL (1.3-4.6); Glomerular Filtration Rate 118.2 mL/min (90-130); Glucose 105 mg/dL (65-115); Osmolality Calculated 290 mOsm/kg (285-295); Sodium 140 mmol/L (136-145); Total Bilirubin 0.2 mg/dL (0.15-1.2); Total Protein 7.4 g/dL (6.6-8.7)
[2022-07-06 21:43] LABS: Urine Appearance SL Hazy (CLEAR); Urine Color Yellow (Yellow); pH Urine 6 (5-7)
[2022-07-06 21:44] LABS: Add Urine Microscopic? YES; Bacteria Urine 2+ /hpf; Bilirubin Urine Neg (Negative); Blood Urine 3+ (Negative); Glucose Urine UA Norm (Normal); Ketones Urine Negative (Negative); Leukocyte Esterase Urine 2+ (Negative); Nitrate Urine Negative (Negative); Protein Urine Neg (Negative); RBC Urine 80-100 /hpf (0-2); Squamous Epithelial Cell Urine 15-25 /hpf (0-5); Urobilinogen Urine Norm (Negative); WBC Urine 40-55 /hpf (0-5)
[2022-07-06 21:45] LABS: Add Urine Culture? No
[2022-07-06 21:56] LABS: HCG Qualitative Urine. Negative (Negative)
[2022-07-06 22:35] VITALS: O2SAT 97
--- NOTE | 2022-07-06 23:16 | CTR_ITS ---
PROCEDURE INFORMATION: Exam: CT Abdomen And Pelvis Without Contrast Exam date and time: 07/06/2022 11:43 PM Age: 31 years old Clinical indication: Abdominal pain; Localized; Lower; Prior surgery; Surgery date: <1 month; Surgery type: Vaginal hysterectomy on 07/01/2022. Csection. Hemorrhoidectomy; Patient HX: C/O pelvic pain; Additional info: Abd pain TECHNIQUE: Imaging protocol: Computed tomography of the abdomen and pelvis without contrast. Radiation optimization: All CT scans at this facility use at least one of these dose optimization techniques: automated exposure control; mA and/or kV adjustment per patient size (includes targeted exams where dose is matched to clinical indication); or iterative reconstruction. COMPARISON: CT abdomen pelvis w con* [id number] 10/29/2020 10:26 PM RADIATION DOSE METRICS: Total DLP (mGy-cm): 1140.33 FINDINGS: Liver: Normal. No mass. Gallbladder and bile ducts: Normal. No calcified stones. No ductal dilation. Pancreas: Normal. No ductal dilation. Spleen: Normal. No splenomegaly. Adrenal glands: Normal. No mass. Kidneys and ureters: Bilateral nonobstructing nephroliths are again seen. The largest stone in the upper pole of the right kidney measures 8 mm maximum size, similar to previous. No hydroureteronephrosis. Stomach and bowel: Unremarkable. No obstruction. No mucosal thickening. Appendix: No evidence of appendicitis. Intraperitoneal space: Unremarkable. No free air. No significant fluid collection. Vasculature: Unremarkable. No abdominal aortic aneurysm. Lymph nodes: Unremarkable. No enlarged lymph nodes. Urinary bladder: Unremarkable as visualized. Reproductive: Status post hysterectomy since previous. Bones/joints: Unremarkable. No acute fracture. Soft tissues: Unremarkable. CT/CT abdomen pelvis con [id number] IMPRESSION: 1. Status post hysterectomy. No evidence of complication on CT. 2. Unchanged bilateral nonobstructing nephroliths.
--- NOTE | 2022-07-06 23:19 | W.ED.DIZZY ---
HPI - Dizziness General: Chief Complaint: Dizziness Stated Complaint: vaginal pain post surgery Time Seen by Provider: 07/06/22 23:14 Source: patient Mode of arrival: ambulatory Limitations: no limitations History of Present Illness: HPI Narrative: 31-year-old female who had a vaginal hysterectomy on Wednesday she states that she has been having some increasing abdominal pain states today she had pain in her lower abdomen along with some pressure in her vagina states she is also had a headache she rates her pain a 6 out of 10 she denies any fevers denies any worsening improving factors. Associated symptoms: Reports headache(s); Denies chest pain or chills Review of Systems Const: Denies: fever(s), chills, body aches or change in appetite Eyes: Denies: blurry vision or eye discomfort ENMT: Denies: throat pain or dental pain Card: Denies: chest pain Resp: Denies: dyspnea GI: Reports: abdominal pain : Denies: dysuria Musc: Denies: neck pain or back pain Skin/Breast: Denies: rash Neuro: Reports: headache(s) Psych: Denies: depression Syed/Lymph: Denies: easy bruising All/Imm: Denies: urticaria PFSH ED PFSH: Medical History Allergic rhinitis due to allergen Bilateral renal stones Bleeding per rectum Body mass index (BMI) of greater than 35 to 39.9 with comorbidity Celiac disease was told she had celiac disease after an EGD in 2013, but repeat EGD she was told she did not. She has not followed a gluten free diet. Depression External hemorrhoids History of CVA (cerebrovascular accident) (~08/2017) Treated at [facility]. Reported as hemorrhagic stroke, from having been on Depo Provera. History of gout Hypothyroid (~02/2022) started on levothyroxine 100mcg 02/23/22. Managed by [facility]. No pertinent past medical history neghx: htn,dm,thyroid,dvt/pe PCP: Dr. Gayle Smoker unmotivated to quit Surgical History H/O section (~2018) Primary Emergent C/S --performed by [facility]. H/O esophagogastroduodenoscopy 2 of these 2013 2021 History of colonoscopy (~10/2021) S/P tonsillectomy Status post hemorrhoidectomy (~10/2021) performed by [facility] Family History Family/Other Breast cancer Maternal Great Grandmother-- dx age unknown Father Diabetes Hypercholesteremia Hypertension Brother Diabetes Hypertension Stroke, Onset Age: 4 Grandmother Diabetes Maternal and Paternal Hypertension Maternal and Paternal Grandfather Diabetes Maternal and Paternal Heart disease Maternal Denies family history of Colon cancer Ovarian cancer Uterine cancer Thyroid disease Social History Smoking and tobacco status: current every day smoker (1PPD) Female Reproductive History: Date of last menstrual period: 06/07/22 Physical Exam Const: COMMON NORMALS: no acute distress, patient oriented x3 and healthy appearing HENMT: COMMON NORMALS: normocephalic and atraumatic HEAD & SCALP: normocephalic and atraumatic Eye: COMMON NORMALS: Equal, round and reactive pupils present and EOMs intact bilaterally PUPIL: Yes Equal, round and reactive pupils present Neck/C-Spine: COMMON NORMALS: full ROM and supple Chest: COMMONS NORMALS: normal inspection of the chest and normal palpation of entire chest wall Resp: COMMON NORMALS: normal respiratory effort, No retractions, No use of accessory muscles and clear to auscultation bilaterally AUSCULTATION: clear to auscultation bilaterally Cardio: COMMON NORMALS: regular rate, regular rhythm and No murmurs present (Cardio) RATE: regular rate RHYTHM: regular rhythm GI: COMMON NORMALS: Normal to inspection, nondistended, normoactive bowel sounds present, Soft to palpation, non-tender and no masses PALPATION: Yes Soft to palpation Extremity: COMMON NORMALS: normal to inspection and full ROM Neuro: COMMON NORMALS: patient oriented x3, moves all extremities and no focal motor deficits Psych: COMMON NORMALS: mental status grossly normal, Normal thought process present and cooperative THOUGHT PROCESS: Normal thought process present Skin: COMMON NORMALS: no rashes or lesions noted and no wounds GENERAL SKIN EXAM: no rashes or lesions noted Course Vital Signs: Vital signs: Vital Signs Temperature 97.8 F 07/06/22 20:09 Pulse Rate 90 07/06/22 23:35 Respiratory Rate 16 07/06/22 23:41 Blood Pressure 125/73 07/06/22 23:35 Pulse Oximetry 97 07/06/22 23:35 Oxygen Delivery Me thod 07/06/22 23:35 MDM - Dizziness Medical Decision Making Patient presents with abdominal pains likely just postop pain she does have a UTI as well she is a mild headache no signs of subarachnoid hemorrhage or meningitis we will prescribe Keflex she is stable for discharge she is to follow-up with her OB and return if worsening she understands agrees to plan. Lab Data 07/06/22 20:37 07/06/22 20:37 Radiology Impressions Abdomen/Pelvis CT 07/06/22 23:16 IMPRESSION: 1. Status post hysterectomy. No evidence of complication on CT. 2. Unchanged bilateral nonobstructing nephroliths. Laboratory Results WBC 15.2 10^3/uL (4.0-10.0) H 07/06/22 20:37 RBC 4.38 10^6/uL (4.1-5.3) 07/06/22 20:37 Hgb 13.8 g/dL (11.5-15.3) 07/06/22 20:37 Hct 42.6 % (37.0-47.0) 07/06/22 20:37 MCV 97.3 fl (81-99) 07/06/22 20:37 MCH 31.5 pg (28.0-34.0) 07/06/22 20:37 MCHC 32.4 g/dL (30.0-36.0) 07/06/22 20:37 RDW 13.3 % (12.1-15.1) 07/06/22 20:37 Plt Count 357 10^3/cmm (130-400) 07/06/22 20:37 MPV 9.1 fL (7.4-10.4) 07/06/22 20:37 Neut % (Auto) 68.6 % 07/06/22 20:37 Lymph % (Auto) 23.0 % 07/06/22 20:37 Turner % (Auto) 4.6 % 07/06/22 20:37 Eos % (Auto) 2.5 % 07/06/22 20:37 Baso % (Auto) 0.3 % 07/06/22 20:37 Neut # (Auto) 10.44 10^3/uL (1.8-7.7) H 07/06/22 20:37 Lymph # (Auto) 3.5 10^3/uL (0.8-4.8) 07/06/22 20:37 Turner # (Auto) 0.7 10^3/uL (0.2-0.9) 07/06/22 20:37 Eos # (Auto) 0.4 10^3/uL (0.0-0.8) 07/06/22 20:37 Baso # (Auto) 0.1 10^3/uL (0.0-0.1) 07/06/22 20:37 Nucleated RBC % (auto) 0 % 07/06/22 20:37 Nucleated RBCs # 0.0 /100WBC 07/06/22 20:37 Sodium 140 mmol/L (136-145) 07/06/22 20:37 Potassium 4.0 mmol/L (3.5-5.1) 07/06/22 20:37 Chloride 104 mmol/L (98-107) 07/06/22 20:37 Carbon Dioxide 28 mmol/L (22-29) 07/06/22 20:37 Anion Gap 12.0 (5-19) 07/06/22 20:37 BUN 12 mg/dL (6-20) 07/06/22 20:37 Creatinine 0.6 mg/dL (0.5-0.9) 07/06/22 20:37 GFR Calculation 118.2 mL/min (90-130) 07/06/22 20:37 Glucose 105 mg/dL (65-115) 07/06/22 20:37 Calculated Osmolality 290 mOsm/kg (285-295) 07/06/22 20:37 Calcium 9.0 mg/dL (8.5-10.5) 07/06/22 20:37 Total Bilirubin 0.2 mg/dL (0.15-1.2) 07/06/22 20:37 AST 18 U/L (0-32) 07/06/22 20:37 ALT 20 U/L (0-33) 07/06/22 20:37 Alkaline Phosphatase 75 U/L (35-105) 07/06/22 20:37 Total Protein 7.4 g/dL (6.6-8.7) 07/06/22 20:37 Albumin 4.1 g/dL (3.5-5.2) 07/06/22 20:37 Globulin 3.3 g/dL (1.3-4.6) 07/06/22 20:37 HCG, Qual Negative (Negative) 07/06/22 21:20 Urine Color Yellow (Yellow) 07/06/22 21:20 Urine Appearance Sl hazy (CLEAR) A 07/06/22 21:20 Urine pH 6 (5-7) 07/06/22 21:20 Ur Specific [place] 1.020 (1.005-1.030) 07/06/22 21:20 Urine Protein Neg (Negative) 07/06/22 21:20 Urine Glucose (UA) Norm (Normal) 07/06/22 21:20 Urine Ketones Negative (Negative) 07/06/22 21:20 Urine Blood 3+ (Negative) H 07/06/22 21:20 Urine Nitrate Negative (Negative) 07/06/22 21:20 Urine Bilirubin Neg (Negative) 07/06/22 21:20 Urine Urobilinogen Norm mg/dL (Negative) 07/06/22 21:20 Ur Leukocyte Esterase 2+ (Negative) H 07/06/22 21:20 Urine RBC 80-100 /hpf (0-2) H 07/06/22 21:20 Urine WBC 40-55 /hpf (0-5) H 07/06/22 21:20 Ur Squamous Epith Cells 15-25 /hpf (0-5) H 07/06/22 21:20 Amorphous Sediment Not Reportable 07/06/22 21:20 Urine Bacteria 2+ /hpf (NONE) H 07/06/22 21:20 Discharge Plan Discharge Patient Disposition: Home Clinical Impression: Abdominal pain, Headache, UTI (urinary tract infection) Condition: Stable Prescriptions: New cephalexin 500 mg capsule 500 mg PO TID 7 Days Qty: 21 0RF ondansetron 4 mg tablet,disintegrating 4 mg PO Q6H PRN (Reason: nausea and vomiting) Qty: 14 0RF No Action levothyroxine 100 mcg capsule 100 mcg PO DAILY omeprazole 20 mg capsule,delayed release(DR/EC) 20 mg PO DAILY PRN (Reason: Heartburn) Trintellix 20 mg Tablet 20 mg PO DAILY hydrocodone-acetaminophen 5-325 mg tablet 1 tab PO Q4H PRN (Reason: pain) Qty: 20 0RF acetaminophen 325 mg capsule 325 mg PO Q4H PRN (Reason: fever or pain) Qty: 60 0RF albuterol sulfate 90 mcg/actuation HFA aerosol inhaler 2 inh inhalation Q4H Qty: 8.5 1RF Discharge Orders: Discharge ED (Routine); Ordered 07/07/22 Ordered By: Douglas Mckenzie Referrals: Chaka Gayle MD [Primary Care Provider] - 1-3 days Discharge Diet: Advance as tolerated Discharge Activity: Resume usual activity Patient Instructions: Urinary Tract Infection in Women (ED), Abdominal Pain (ED), General Headache (ED) Coding Level of Care Code ED Industrial Engineering Analyst for Chg Fwd Exam Comprehensive
[2022-07-06] MEDS: diphenhydrAMINE 50 mg/mL SDV 1mL IVP (23:30)
[2022-07-06] MEDS: metoclopramide 5 mg/mL SDV 2 mL 10 MG IVP (23:33)
[2022-07-06 23:35] VITALS: BP 125/73; PULSE 90; RESP 16; O2SAT 97
[2022-07-06] MEDS: cefTRIAXone 1,000 MG in sodium chloride 0.9% (plus) 50 ML 100 MG IV (23:39)
[2022-07-06 23:41] VITALS: RESP 16
[2022-07-06] MEDS: sodium chloride 0.9% 1,000 ML 999 ML IV (23:41)
[2022-07-06] MEDS: morphine 4 mg/mL SDV 1 mL IVP (23:41)
--- NOTE | 2022-07-06 23:42 | PC.NURSE ---
patient taken to CT via stretcher with technology risk intern
--- NOTE | 2022-07-06 23:48 | PC.NURSE ---
Patient returned from CT
[2022-07-07 00:34] VITALS: BP 98/61; PULSE 85; RESP 16; O2SAT 95
== END 2022-07-07 00:49 | disposition home or self-care (01) ==
PROVIDERS: Emergency Provider Emergency Medicine; PCP Family Medicine
DX: N39.0 Urinary tract infection, site not specified (principal); R51.9 Headache, unspecified; F17.210 Nicotine dependence, cigarettes, uncomplicated; Z86.73 Personal history of transient ischemic attack (TIA), and cerebral infarction without residual deficits
CPT/HCPCS: 74176; 80053; 81001; 81025; 85025; 96361; 96374; 96375; 99285; J0696; J1200; J2270; J2765; J7030

== ENCOUNTER 2022-08-18 11:41 | Inpatient (IN) | payer MEDICAID, SELFPAY ==
[2022-08-18] VITALS (11 sets, daily range): BP systolic 107–154; BP diastolic 71–93; PULSE 88–122; RESP 15–18; TEMP 36.9–37; O2SAT 95–98; BMI 38.0
[2022-08-18] MEDS: sodium chloride 0.9% 1,000 ML 999 ML IV (13:42)
[2022-08-18 13:45] LABS: Basophils # 0.1 10^3/uL (0.0-0.1); Basophils % 0.4 %; Eosinophils # 0.2 10^3/uL (0.0-0.8); Eosinophils % 0.8 %; Hematocrit 42.1 % (37.0-47.0); Hemoglobin 13.9 g/dL (11.5-15.3); Lymphocytes # 2.4 10^3/uL (0.8-4.8); Lymphocytes % 12.3 %; Mean Corpuscular Hemoglobin 32.2 pg (28.0-34.0); Mean Corpuscular Volume 97.5 fl (81-99); Mean Platelet Volume 9.7 fL (7.4-10.4); Monocytes # 1.4 10^3/uL (0.2-0.9); Monocytes % 7.1 %; Neutrophils # 15.28 10^3/uL (1.8-7.7); Neutrophils % 78.6 %; Nucleated Red Blood Cells % 0 %; Platelet Count 265 10^3/cmm (130-400); Red Blood Count 4.32 10^6/uL (4.1-5.3); Red Cell Distribution Width 13.2 % (12.1-15.1); White Blood Count 19.4 10^3/uL (4.0-10.0)
--- NOTE | 2022-08-18 13:52 | CTR_ITS ---
PROCEDURE INFORMATION: Exam: CT Abdomen And Pelvis Without Contrast Exam date and time: 08/18/2022 2:38 PM Age: 31 years old Clinical indication: Abdominal pain; Localized; Lower; Prior surgery; Surgery date: 1-6 months; Surgery type: Hysterctomy 7 weeks ago; Additional info: Abdominal pain, leukocytosis, S/P vag hyster TECHNIQUE: Imaging protocol: Computed tomography of the abdomen and pelvis without contrast. Radiation optimization: All CT scans at this facility use at least one of these dose optimization techniques: automated exposure control; mA and/or kV adjustment per patient size (includes targeted exams where dose is matched to clinical indication); or iterative reconstruction. REPORTING DATA: Count of CT and Cardiac NM exams in prior 12 months: This patient has received [address] and 0 known cardiac nuclear medicine studies in the 12 months prior to the current study. COMPARISON: CT abdomen pelvis wo con [id number] 07/06/2022 11:43 PM RADIATION DOSE METRICS: Total DLP (mGy-cm): 1117 FINDINGS: Lungs: Lung bases are clear. Liver: The liver is normal. Gallbladder and bile ducts: The gallbladder is decompressed, preventing meaningful evaluation of wall thickness. Pancreas: The pancreas is unremarkable. Spleen: The spleen is unremarkable. Adrenal glands: The adrenal glands are unremarkable. Kidneys and ureters: Nonobstructive stones are seen in both kidneys. There is no hydronephrosis or ureteral dilation. Stomach and bowel: The stomach is decompressed, preventing meaningful evaluation of wall thickness. The small bowel is nondilated. The colon is unremarkable. Appendix: The appendix is normal. Intraperitoneal space: There is mesenteric edema in the deep pelvis. No fluid collection. There is no free air or significant intraperitoneal free fluid. Vasculature: The aorta is unremarkable. There is no aneurysm. Lymph nodes: There is no lymphadenopathy in the retroperitoneum, mesentery, pelvis or inguinal regions. Urinary bladder: diffuse pericystic edema, increased since 07/06/2022. Reproductive: The uterus is absent. There is no adnexal mass or large cyst. There is fluid distention of the vagina which is increased since 07/06/2022. Bones/joints: Bones are unremarkable. Soft tissues: The abdominal wall is intact. CT/CT abdomen pelvis wo con [id number] IMPRESSION: 1. New fluid distention of the vagina. Correlate with vaginal bleeding. 2. Progressive pericystic edema since 07/06/2022. Probable cystitis. Correlate with urinalysis. 3. Hysterectomy.
[2022-08-18 13:53] LABS: Anion Gap 14.8 (5-19); Blood Urea Nitrogen 10 mg/dL (6-20); Calcium 8.9 mg/dL (8.5-10.5); Carbon Dioxide 25 mmol/L (22-29); Chloride 101 mmol/L (98-107); Glomerular Filtration Rate 98.9 mL/min (90-130); Glucose 100 mg/dL (65-115); Osmolality Calculated 283 mOsm/kg (285-295); Potassium 3.8 mmol/L (3.5-5.1); Sodium 137 mmol/L (136-145)
[2022-08-18 14:12] LABS: Bilirubin Urine Neg (Negative); Blood Urine Neg (Negative); Glucose Urine UA Norm (Normal); Ketones Urine 1+ (Negative); Leukocyte Esterase Urine Trace (Negative); Nitrate Urine Negative (Negative); Protein Urine Neg (Negative); Urine Appearance Hazy (CLEAR); Urine Color Yellow (Yellow); Urobilinogen Urine 1 mg/dL (Negative); pH Urine 5 (5-7)
[2022-08-18 14:13] LABS: Add Urine Microscopic? YES; RBC Urine RARE /hpf (0-2); WBC Urine 0-4 /hpf (0-5)
[2022-08-18 14:14] LABS: Add Urine Culture? No; Amorphous Sediment Urine 1+ /hpf; Bacteria Urine 1+ /hpf; Mucus Urine 1+ /hpf
--- NOTE | 2022-08-18 14:49 | W.ED.FEMALGU ---
HPI - Female Genitourinary General: Chief complaint: Urogenital-Female Stated complaint: cramping vaginal pressure sent by [facility] Time Seen by Provider: 08/18/22 12:29 Source: patient Mode of arrival: ambulatory History of Present Illness: 31-year-old female presents emergency room with lower abdominal pain. She is about 6 to 8 weeks status post vaginal hysterectomy. 1 week ago she was prescribed metronidazole per for assumably according to Dr. Sterling's note for bacterial vaginosis. She describes it as she was having a reaction to the suture material used during the procedure. When I looked at his notes I do not see anything reflecting at this time. She reports having had a fever at home she is afebrile here she denies any dysuria urgency or frequency denies any nausea vomiting or diarrhea. MD elicited complaint: dysuria Onset (ago): minute(s) Severity: mild Quality of pain: cramping Consistency: constant Vaginal discharge: none Vaginal bleeding: none Exacerbating factors: none Relieving factors: none Associated symptoms: Reports abdominal pain; Deny short of breath, fevers/chills, headache(s), nausea, rash, seizures, syncope, vaginal bleeding, vaginal discharge or weakness Treatment prior to arrival: none Review of Systems Const: Denies: fever(s), chills, body aches, change in appetite, fatigue or malaise ENMT: Denies: throat pain, ear or mastoid pain, nasal discharge or nasal congestion Card: Denies: chest pain, palpitations, irregular heart rhythm, edema or syncope Resp: Denies: dyspnea, productive cough or non-productive cough GI: Reports: abdominal pain; Denies: nausea or vomiting : Denies: flank pain, dysuria, urinary frequency, urinary urgency or vaginal discharge Skin/Breast: Denies: rash or pruritus Neuro: Denies: headache(s) PFSH ED PFSH: Medical History Allergic rhinitis due to allergen Bilateral renal stones Bleeding per rectum Body mass index (BMI) of greater than 35 to 39.9 with comorbidity Celiac disease was told she had celiac disease after an EGD in 2013, but repeat EGD she was told she did not. She has not followed a gluten free diet. Depression External hemorrhoids History of CVA (cerebrovascular accident) (~08/2017) Treated at [facility]. Reported as hemorrhagic stroke, from having been on Depo Provera. History of gout Hypothyroid (~02/2022) levothyroxine 100mcg 02/23/22. Dr Gayle, TSH 4.4 04/27/2022. No pertinent past medical history neghx: htn,dm,thyroid,dvt/pe PCP: Dr. Gayle Smoker unmotivated to quit Surgical History H/O section (~2018) Primary Emergent C/S --performed by [facility]. H/O esophagogastroduodenoscopy 2 of these 2013 2021 History of colonoscopy (~10/2021) S/P tonsillectomy Status post hemorrhoidectomy (~10/2021) performed by [facility] Family History Family/Other Breast cancer Maternal Great Grandmother-- dx age unknown Father Diabetes Hypercholesteremia Hypertension Brother Diabetes Hypertension Stroke, Onset Age: 4 Grandmother Diabetes Maternal and Paternal Hypertension Maternal and Paternal Grandfather Diabetes Maternal and Paternal Heart disease Maternal Denies family history of Colon cancer Ovarian cancer Uterine cancer Thyroid disease Social History Smoking and tobacco status: current every day smoker (1PPD) Physical Exam Const: GENERAL APPEARANCE: cooperative and comfortable ORIENTATION/CONSCIOUSNESS: Yes awake, Yes oriented to person, Yes oriented to place and Yes oriented to time HENMT: COMMON NORMALS: normocephalic, atraumatic and hearing grossly normal bilaterally HEAD & SCALP: normocephalic and atraumatic Resp: COMMON NORMALS: normal respiratory effort, No retractions, No use of accessory muscles and clear to auscultation bilaterally AUSCULTATION: clear to auscultation bilaterally Cardio: COMMON NORMALS: regular rate, regular rhythm and No murmurs present (Cardio) RATE: regular rate RHYTHM: regular rhythm GI: COMMON NORMALS: Soft to palpation and No hepatosplenomegaly present AUSCULTATION: Yes normoactive bowel sounds PALPATION: Yes Soft to palpation, No Tenderness to palpation present (GI), No Guarding due to palpation present (GI) and Yes No hepatosplenomegaly present : SPECULUM EXAM - VAGINA: No vaginal bleeding OB/EXTERNAL & SPECULUM: No vaginal bleeding Extremity: COMMON NORMALS: normal to inspection, capillary refill normal, no clubbing, cyanosis or edema, no calf tenderness and no pedal edema Neuro: SENSORIUM/ORIENTATION: Yes oriented to person, Yes oriented to place and Yes oriented to time Skin: COMMON NORMALS: no rashes or lesions noted GENERAL SKIN EXAM: no rashes or lesions noted Course Vital Signs: Vital signs: Vital Signs Temperature 98.6 F 08/18/22 11:59 Pulse Rate 104 H 08/18/22 17:01 Respiratory Rate 16 08/18/22 16:22 Blood Pressure 119/74 08/18/22 17:01 Pulse Oximetry 95 08/18/22 17:01 Oxygen Delivery Me thod 08/18/22 17:01 MDM - Female Medical Decision Making CT shows fluid collection in the proximal end of the vaginal canal. Patient only reports of clear fluid drainage. She was advised to use metronidazole but had not gotten it filled discussed findings with Dr. Sterling patient also has significant elevation of white count with left shift. Cultures done we will start her on metronidazole per Dr. Joshi's direction. Placed on observation he will see the patient on the floor. Medical Records I reviewed the patient's medical records. Lab Data I reviewed the patient's lab results. 08/18/22 13:04 08/18/22 13:04 Radiology Impressions Abdomen/Pelvis CT 08/18/22 13:52 IMPRESSION: 1. New fluid distention of the vagina. Correlate with vaginal bleeding. 2. Progressive pericystic edema since 07/06/2022. Probable cystitis. Correlate with urinalysis. 3. Hysterectomy. Laboratory Results WBC 19.4 10^3/uL (4.0-10.0) H 08/18/22 13:04 RBC 4.32 10^6/uL (4.1-5.3) 08/18/22 13:04 Hgb 13.9 g/dL (11.5-15.3) 08/18/22 13:04 Hct 42.1 % (37.0-47.0) 08/18/22 13:04 MCV 97.5 fl (81-99) 08/18/22 13:04 MCH 32.2 pg (28.0-34.0) 08/18/22 13:04 MCHC 33.0 g/dL (30.0-36.0) 08/18/22 13:04 RDW 13.2 % (12.1-15.1) 08/18/22 13:04 Plt Count 265 10^3/cmm (130-400) 08/18/22 13:04 MPV 9.7 fL (7.4-10.4) 08/18/22 13:04 Neut % (Auto) 78.6 % 08/18/22 13:04 Lymph % (Auto) 12.3 % 08/18/22 13:04 Bell % (Auto) 7.1 % 08/18/22 13:04 Eos % (Auto) 0.8 % 08/18/22 13:04 Baso % (Auto) 0.4 % 08/18/22 13:04 Neut # (Auto) 15.28 10^3/uL (1.8-7.7) H 08/18/22 13:04 Lymph # (Auto) 2.4 10^3/uL (0.8-4.8) 08/18/22 13:04 Bell # (Auto) 1.4 10^3/uL (0.2-0.9) H 08/18/22 13:04 Eos # (Auto) 0.2 10^3/uL (0.0-0.8) 08/18/22 13:04 Baso # (Auto) 0.1 10^3/uL (0.0-0.1) 08/18/22 13:04 Nucleated RBC % (auto) 0 % 08/18/22 13:04 Nucleated RBCs # 0.0 /100WBC 08/18/22 13:04 Sodium 137 mmol/L (136-145) 08/18/22 13:04 Potassium 3.8 mmol/L (3.5-5.1) 08/18/22 13:04 Chloride 101 mmol/L (98-107) 08/18/22 13:04 Carbon Dioxide 25 mmol/L (22-29) 08/18/22 13:04 Anion Gap 14.8 (5-19) 08/18/22 13:04 BUN 10 mg/dL (6-20) 08/18/22 13:04 Creatinine 0.7 mg/dL (0.5-0.9) 08/18/22 13:04 GFR Calculation 98.9 mL/min (90-130) 08/18/22 13:04 Glucose 100 mg/dL (65-115) 08/18/22 13:04 Calculated Osmolality 283 mOsm/kg (285-295) L 08/18/22 13:04 Calcium 8.9 mg/dL (8.5-10.5) 08/18/22 13:04 Urine Color Yellow (Yellow) 08/18/22 13:35 Urine Appearance Hazy (CLEAR) A 08/18/22 13:35 Urine pH 5 (5-7) 08/18/22 13:35 Ur Specific [place] 1.020 (1.005-1.030) 08/18/22 13:35 Urine Protein Neg (Negative) 08/18/22 13:35 Urine Glucose (UA) Norm (Normal) 08/18/22 13:35 Urine Ketones 1+ (Negative) H 08/18/22 13:35 Urine Blood Neg (Negative) 08/18/22 13:35 Urine Nitrate Negative (Negative) 08/18/22 13:35 Urine Bilirubin Neg (Negative) 08/18/22 13:35 Urine Urobilinogen 1 mg/dL (Negative) H 08/18/22 13:35 Ur Leukocyte Esterase Trace (Negative) H 08/18/22 13:35 Urine RBC Rare /hpf (0-2) 08/18/22 13:35 Urine WBC 0-4 /hpf (0-5) H 08/18/22 13:35 Ur Squamous Epith Cells 10-15 /hpf (0-5) H 08/18/22 13:35 Amorphous Sediment 1+ /hpf 08/18/22 13:35 Urine Bacteria 1+ /hpf (NONE) H 08/18/22 13:35 Urine Mucus 1+ /hpf 08/18/22 13:35 Discharge Plan Discharge Patient Disposition: Placed in Observation Clinical Impression: Post op infection, S/P vaginal hysterectomy Coding Level of Care Code ED Environmental Remediation Engineer for Genia Turner
[2022-08-18] MEDS: ondansetron 2 mg/ML SDV 2 mL 4 MG IVP (15:55)
[2022-08-18] MEDS: morphine 4 mg/mL SDV 1 mL IVP (15:55)
[2022-08-18] MEDS: metroNIDAZOLE IV 500 MG/100 ML PREMIX 100 MG IV ×2 (16:07→20:55)
[2022-08-18] MEDS: D5-NS 0.45% + KCL 20 mEq 20 MEQ/1,000 ML BAG 100 MEQ IV (17:40)
[2022-08-18] MEDS: nicotine 21 mg Patch 1 PATCH TRANSDERMA (17:42)
[2022-08-18] MEDS: morphine 4 mg/mL SDV 1 mL 2 MG IVP (20:01)
[2022-08-19] VITALS (12 sets, daily range): BP systolic 96–114; BP diastolic 59–76; PULSE 87–104; RESP 15–20; TEMP 36.6–37.2; O2SAT 96–98
[2022-08-19] MEDS: morphine 4 mg/mL SDV 1 mL 2 MG IVP ×5 (02:28→23:34)
[2022-08-19] MEDS: metroNIDAZOLE IV 500 MG/100 ML PREMIX 100 MG IV ×4 (02:30→20:31)
[2022-08-19] MEDS: D5-NS 0.45% + KCL 20 mEq 20 MEQ/1,000 ML BAG 100 MEQ IV ×2 (02:32→13:08)
[2022-08-19] MEDS: ondansetron 2 mg/ML SDV 2 mL 4 MG IVP (11:14)
--- NOTE | 2022-08-19 12:44 | P.PN_ITS ---
Subjective Subjective: Mrs. Pack 31-year-old female is status post total vaginal hysterectomy 2 weeks ago. Vitals/I&O/Wt Last Vital Signs Temp 98.4 F 08/19/22 08:00 Pulse 99 08/19/22 08:00 Resp 17 08/19/22 11:15 BP 114/76 08/19/22 08:00 Pulse Ox 97 08/19/22 08:00 O2 Del Method 08/19/22 08:00 08/18/22 08/19/22 08/19/22 22:59 06:59 14:59 Intake Total 1200 / 1200 986.667 / 2186.667 220 / 220 Balance 1200 / 1200 986.667 / 2186.667 220 / 220 Weight last 48 hrs Weight 110.223 kg Physical Exam Narrative: GA: Alert and oriented ?3. HEENT: WNL. Heart: Regular rate and rhythm. Lungs: Clear to auscultation bilaterally. Abdomen: Bowel sounds present, nontender, minimal tenderness, incision clean and dry, no redness, pain or edema. STEAM CLEAN MACHINE OPERATOR: No bleeding. Extremities: No edema, no cyanosis, no calves pain. Data 08/18/22 13:04 08/18/22 13:04 Micro: Microbiology 08/18/22 16:05 Blood Culture - Preliminary Blood SPECIMEN COLLECTED 08/18/22 16:00 Blood Culture - Preliminary Blood SPECIMEN COLLECTED A&P Assessment and plan (1) S/P vaginal hysterectomy: (2) Post op infection: Mrs. Pack 31-year-old female is status post total vaginal hysterectomy 2 weeks ago. She had developed bacterial vaginosis and was prescribed Flagyl p.o. she did not take the antibiotics and developed vaginal cuff effection. We will continue with IV antibiotics and observation for 48hours. Attestations Medical Necessity Statement*: In my professional opinion per admitting. Coding Level of Care Code Acute Code for [facility] Fwd Diagnoses S/P vaginal hysterectomy Z90.710 Post op infection T81.40XA
[2022-08-19 14:01] LABS: Basophils # 0.1 10^3/uL (0.0-0.1); Basophils % 0.5 %; Eosinophils # 0.2 10^3/uL (0.0-0.8); Eosinophils % 1.7 %; Hematocrit 37.5 % (37.0-47.0); Hemoglobin 11.9 g/dL (11.5-15.3); Lymphocytes # 2.6 10^3/uL (0.8-4.8); Lymphocytes % 19.2 %; Mean Corpuscular HGB Conc 31.7 g/dL (30.0-36.0); Mean Corpuscular Hemoglobin 31.4 pg (28.0-34.0); Mean Corpuscular Volume 98.9 fl (81-99); Mean Platelet Volume 9.6 fL (7.4-10.4); Monocytes # 0.9 10^3/uL (0.2-0.9); Monocytes % 6.8 %; Neutrophils # 9.44 10^3/uL (1.8-7.7); Neutrophils % 70.9 %; Nucleated Red Blood Cells % 0 %; Platelet Count 233 10^3/cmm (130-400); Red Blood Count 3.79 10^6/uL (4.1-5.3); Red Cell Distribution Width 13.1 % (12.1-15.1); White Blood Count 13.3 10^3/uL (4.0-10.0)
[2022-08-19] MEDS: sulfamethoxazole-trimeth DS 160-800 mg Tablet 1 TAB PO (17:16)
[2022-08-20] VITALS (7 sets, daily range): BP systolic 99–124; BP diastolic 60–78; PULSE 78–95; RESP 15–16; TEMP 36.6–36.8; O2SAT 96–98
[2022-08-20] MEDS: morphine 4 mg/mL SDV 1 mL 2 MG IVP ×2 (00:44→04:39)
[2022-08-20] MEDS: metroNIDAZOLE IV 500 MG/100 ML PREMIX 100 MG IV ×3 (04:30→17:15)
[2022-08-20] MEDS: ondansetron 2 mg/ML SDV 2 mL 4 MG IVP ×2 (07:41→13:49)
[2022-08-20] MEDS: D5-NS 0.45% + KCL 20 mEq 20 MEQ/1,000 ML BAG 100 MEQ IV (07:42)
[2022-08-20 09:02] LABS: Basophils # 0.1 10^3/uL (0.0-0.1); Basophils % 0.5 %; Eosinophils # 0.3 10^3/uL (0.0-0.8); Eosinophils % 2.7 %; Hematocrit 36.6 % (37.0-47.0); Hemoglobin 11.4 g/dL (11.5-15.3); Lymphocytes # 2.5 10^3/uL (0.8-4.8); Lymphocytes % 22.3 %; Mean Corpuscular HGB Conc 31.1 g/dL (30.0-36.0); Mean Corpuscular Hemoglobin 31.7 pg (28.0-34.0); Mean Corpuscular Volume 101.7 fl (81-99); Mean Platelet Volume 9.8 fL (7.4-10.4); Monocytes # 0.7 10^3/uL (0.2-0.9); Monocytes % 6.3 %; Neutrophils # 7.41 10^3/uL (1.8-7.7); Neutrophils % 67.2 %; Nucleated Red Blood Cells % 0 %; Platelet Count 217 10^3/cmm (130-400)
--- NOTE | 2022-08-20 09:08 | US_ITS ---
WS: [id number] TRANSVAGINAL PELVIC ULTRASOUND HISTORY: pelvic pain COMPARISON: Prior CT 08/18/2022 and 07/06/2022. Patient is status post hysterectomy. Minimal distention of the urinary bladder. Contiguous with the vaginal cuff is a complex, irregular shaped heterogeneous collection measuring 4. 0 x 2.1 cm. This corresponds and correlates with the complex collection noted on the CT of 08/18/2022. This collection is new since the CT of 07/06/2022. There is very mild increased vascularity. Most cons istent for developing post operative phlegmonous collection. This is not well circumscribed at this t serene. US/US transvaginal [id number] IMPRESSION: 1. Focal phlegmon in the region of the vaginal cuff measuring 4.0 x 2.1 cm. No pedro luis on the CT of 08/18/2022 but new since 07/06/2022. 2. No free fluid.
[2022-08-20 09:17] LABS: Alanine Aminotransferase 26 U/L (0-33); Alkaline Phosphatase 66 U/L (35-105); Anion Gap 13.1 (5-19); Aspartate Amino Transferase 18 U/L (0-32); Blood Urea Nitrogen 7 mg/dL (6-20); Calcium 8.2 mg/dL (8.5-10.5); Carbon Dioxide 23 mmol/L (22-29); Chloride 104 mmol/L (98-107); Globulin 2.9 g/dL (1.3-4.6); Glomerular Filtration Rate 98.9 mL/min (90-130); Glucose 134 mg/dL (65-115); Osmolality Calculated 282 mOsm/kg (285-295); Potassium 4.1 mmol/L (3.5-5.1); Sodium 136 mmol/L (136-145); Total Bilirubin 0.2 mg/dL (0.15-1.2); Total Protein 5.9 g/dL (6.6-8.7)
--- NOTE | 2022-08-20 09:39 | PC.NURSE ---
patient stated her brought in levothyroxin and trintellix from home early this am and she took them.
--- NOTE | 2022-08-20 09:40 | PC.NURSE ---
Notified Dr. Nuno patient has had nausea since yesterday. Dr. Nuno verbal ordered norco 5/325 mg Q4H PRN. Also per [facility] shift lead patient was noted to have gone outside to smoke. Dr. Nuno ordered nicotine patch 21mg Q@24H.
[2022-08-20] MEDS: HYDROcodone-acetaminophen 5-325 mg Tablet 1 TAB PO ×3 (09:47→18:31)
[2022-08-20] MEDS: sulfamethoxazole-trimeth DS 160-800 mg Tablet 1 TAB PO ×2 (09:47→18:33)
[2022-08-20] MEDS: nicotine 21 mg Patch 1 PATCH TRANSDERMA (13:49)
--- NOTE | 2022-08-20 17:37 | P.DS_ITS ---
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 She had developed bacterial vaginosis and had been prescribed Flagyl but she was not compliant with recommended treatment. Then she returned to the emergency room with vaginal discomfort pain and inflammation of the vaginal cuff suggestive of a phlegmon. She was admitted for IV antibiotic therapy. She has been afebrile and hemodynamically stable for 48 hours. White count have decreased. She was also counseled regarding smoking relation to poor healing. During overnight observation she left the floor and stood outside the hospital to smoke a cigarette without consent. Tolerating diet well. Ambulating without difficulty. Pain under control. Physical Exam Narrative: GA: Alert and oriented ?3. HEENT: WNL. Heart: Regular rate and rhythm. Lungs: Clear to auscultation bilaterally. Abdomen: Bowel sounds present, nontender. 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 Extremities: No edema, no cyanosis, no calves pain. History History History 5 Term 4 0 Miscarriages/Ectopic 1 Living Children 4 Discharge Data Studies Completed and Pending Completed Studies During Hospitalization Category Date Time Status CT abdomen pelvis wo con [id number] Stat Cat Scan 08/18/22 13:52 Completed US transvaginal [id number] Routine Ultrasound 08/20/22 09:08 Completed Pending at discharge Category Date Time Status Blood Culture Stat Lab 08/18/22 16:05 Results Radiology Impressions Abdomen/Pelvis CT 08/18/22 13:52 IMPRESSION: 1. New fluid distention of the vagina. Correlate with vaginal bleeding. 2. Progressive pericystic edema since 07/06/2022. Probable cystitis. Correlate with urinalysis. 3. Hysterectomy. Transvaginal US 08/20/22 09:08 IMPRESSION: 1. Focal phlegmon in the region of the vaginal cuff measuring 4.0 x 2.[address] cm[address] Noted on the CT of 08/18/2022 but new since 07/06/2022. 2. No free fluid. Laboratory Results WBC 11.0 10^3/uL (4.0-10.0) H 08/20/22 08:28 RBC 3.60 10^6/uL (4.1-5.3) L 08/20/22 08:28 Hgb 11.4 g/dL (11.5-15.3) L 08/20/22 08:28 Hct 36.6 % (37.0-47.0) L 08/20/22 08:28 MCV 101.7 fl (81-99) H 08/20/22 08: MCH 31.7 pg (28.0-34.0) 08/20/22 08: MCHC 31.1 g/dL (30.0-36.0) 08/20/22 08: RDW 13.0 % (12.1-15.1) 08/20/22 08:28 Plt Count 217 10^3/cmm (130-400) 08/20/22 08:28 MPV 9.8 fL (7.4-10.4) 08/20/22 08:28 Neut % (Auto) 67.2 % 08/20/22 08:28 Lymph % (Auto) 22.3 % 08/20/22 08:28 [place] % (Auto) 6.3 % 08/20/22 08:28 Eos % (Auto) 2.7 % 08/20/22 08:28 Baso % (Auto) 0.5 % 08/20/22 08:28 Neut # (Auto) 7.41 10^3/uL (1.8-7.7) 08/20/22 08:28 Lymph # (Auto) 2.5 10^3/uL (0.8-4.8) 08/20/22 08:28 Cannon # (Auto) 0.7 10^3/uL (0.2-0.9) 08/20/22 08: Eos # (Auto) 0.3 10^3/uL (0.0-0.8) 08/20/22 08:28 Baso # (Auto) 0.1 10^3/uL (0.0-0.1) 08/20/22 08:28 Nucleated RBC % (auto) 0 % 03/09/23 08:28 Nucleated RBCs # 0.0 /100WBC 08/20/22 08:28 Sodium 136 mmol/L (136-145) 08/20/22 08:28 Potassium 4.1 mmol/L (3.5-5.1) 08/20/22 08:28 Chloride 104 mmol/L (98-107) 08/20/22 08:28 Carbon Dioxide 23 mmol/L (22-29) 08/20/22 08:28 Anion Gap 13.1 (5-19) 08/20/22 08:28 BUN 7 mg/dL (6-20) 08/20/22 08:28 Creatinine 0.7 mg/dL (0.5-0.9) 08/20/22 08:28 GFR Calculation 98.9 mL/min (90-130) 08/20/22 08:28 Glucose 134 mg/dL (65-115) H 08/20/22 08:28 Calculated Osmolality 282 mOsm/kg (285-295) L 08/20/22 08:28 Calcium 8.2 mg/dL (8.5-10.5) L 08/20/22 08:28 Total Bilirubin 0.2 mg/dL (0.15-1.2) 08/20/22 08:28 AST 18 U/L (0-32) 08/20/22 08:28 ALT 26 U/L (0-33) 08/20/22 08:28 Alkaline Phosphatase 66 U/L (35-105) 08/20/22 08:28 Total Protein 5.9 g/dL (6.6-8.7) L 08/20/22 08:28 Albumin 3.0 g/dL (3.5-5.2) L 08/20/22 08:28 Globulin 2.9 g/dL (1.3-4.6) 08/20/22 08:28 Urine Color Yellow (Yellow) 08/18/22 13:35 Urine Appearance Hazy (CLEAR) A 08/18/22 13:35 Urine pH 5 (5-7) 08/18/22 13:35 Ur Specific [place] 1.020 (1.005-1.030) 08/18/22 13:35 Urine Protein Neg (Negative) 08/18/22 13:35 Urine Glucose (UA) Norm (Normal) 08/18/22 13:35 Urine Ketones 1+ (Negative) H 08/18/22 13:35 Urine Blood Neg (Negative) 08/18/22 13:35 Urine Nitrate Negative (Negative) 08/18/22 13:35 Urine Bilirubin Neg (Negative) 08/18/22 13:35 Urine Urobilinogen 1 mg/dL (Negative) H 08/18/22 13:35 Ur Leukocyte Esterase Trace (Negative) H 08/18/22 13:35 Urine RBC Rare /hpf (0-2) 08/18/22 13:35 Urine WBC 0-4 /hpf (0-5) H 08/18/22 13:35 Ur Squamous Epith Cells 10-15 /hpf (0-5) H 08/18/22 13:35 Amorphous Sediment 1+ /hpf 08/18/22 13:35 Urine Bacteria 1+ /hpf (NONE) H 08/18/22 13:35 Urine Mucus 1+ /hpf 08/18/22 13:35 Vitals Last Vital Signs Temp 97.8 F 08/20/22 16:23 Pulse 78 08/20/22 16:23 Resp 16 08/20/22 16:23 BP 124/78 08/20/22 16:23 Pulse Ox 98 08/20/22 16:23 O2 Del Method 08/20/22 16:23 Discharge Plan Discharge Patient Disposition: Home Condition: Stable Prescriptions: New acetaminophen 325 mg capsule 325 mg PO Q4H PRN (Reason: fever or pain) Qty: 60 0RF ibuprofen 800 mg tablet 800 mg PO TID PRN (Reason: pain) Qty: 60 0RF metronidazole 500 mg tablet 250 mg PO BID 14 Days Qty: 14 0RF sulfamethoxazole-trimethoprim [Bactrim DS] 800-160 mg tablet 1 tab PO BID 14 Days Qty: 28 0RF Continued levothyroxine 100 mcg capsule 100 mcg PO DAILY omeprazole 20 mg capsule,delayed release(DR/EC) 20 mg PO DAILY PRN (Reason: Heartburn) Trintellix 20 mg Tablet 20 mg PO DAILY Discharge Orders: Discharge Order (Routine); Ordered 08/20/22 Ordered By: Néstor Nuno Referrals: Chaka Gayle MD [Primary Care Provider] - Néstor Nuno MD [Physician] - 2 weeks Discharge Diet: Usual diet Discharge Activity: Limit activity as instructed Patient Instructions: Opioid Safety, Pain Management Discharge 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
--- NOTE | 2022-08-20 19:40 | PC.NURSE ---
Discussed discharge, medications and follow up appointments. Patient verbalized understanding
== END 2022-08-20 19:03 | disposition home or self-care (01) | DRG 863 ==
LOC: ER 15:58 → MEDSURG 18:01
PROVIDERS: Emergency Medicine; Admitting Provider Obstetrics & Gynecology; Emergency Provider Family Medicine; PCP Family Medicine; Visit Provider Obstetrics & Gynecology
DX: T81.40XA Infection following a procedure, unspecified, initial encounter (principal); N76.0 Acute vaginitis; Z90.710 Acquired absence of both cervix and uterus; F32.A Depression, unspecified; Z86.73 Personal history of transient ischemic attack (TIA), and cerebral infarction without residual deficits; E03.9 Hypothyroidism, unspecified; F17.210 Nicotine dependence, cigarettes, uncomplicated; Z91.128 Patient's intentional underdosing of medication regimen for other reason; B99.9 Unspecified infectious disease; Y83.8 Other surgical procedures as the cause of abnormal reaction of the patient, or of later complication, without mention of misadventure at the time of the procedure
CPT/HCPCS: 36415; 74176; 76830; 80048; 80053; 81001; 85025; 87040; 96374; 96375; 99285; J2270; J2405; J3490; J7030

== ENCOUNTER → 2023-01-13 11:00 | Outpatient (BNVA) | payer MEDICAID, SELFPAY | PROVIDERS: PCP Family Medicine; Visit Provider Family Medicine | DX: J30.2 Other seasonal allergic rhinitis (principal); E03.9 Hypothyroidism, unspecified; F41.9 Anxiety disorder, unspecified; G25.81 Restless legs syndrome; F32.1 Major depressive disorder, single episode, moderate; K21.9 Gastro-esophageal reflux disease without esophagitis; F17.200 Nicotine dependence, unspecified, uncomplicated; Z71.6 Tobacco abuse counseling; Z86.73 Personal history of transient ischemic attack (TIA), and cerebral infarction without residual deficits | CPT/HCPCS: 80053; 80061; 82728; 83036; 83550; 84439; 84443; 85025 ==

== ENCOUNTER 2023-03-17 23:03 | Emergency (ER) | payer MEDICAID, SELFPAY ==
[2023-03-17 23:12] VITALS: BP 128/99; PULSE 66; RESP 18; TEMP 36.4; O2SAT 100; BMI 36.0
--- NOTE | 2023-03-17 23:13 | CTR_ITS ---
PROCEDURE INFORMATION: Exam: CT Abdomen And Pelvis Without Contrast Exam date and time: 03/17/2023 11:55 PM Age: 32 years old Clinical indication: Abdominal pain; Localized; Right lower quadrant (rlq); Prior surgery; Surgery date: 6+ months; Surgery type: Hysterectomy, csection; Additional info: Rlq abd pain TECHNIQUE: Imaging protocol: Computed tomography of the abdomen and pelvis without contrast. Radiation optimization: All CT scans at this facility use at least one of these dose optimization techniques: automated exposure control; mA and/or kV adjustment per patient size (includes targeted exams where dose is matched to clinical indication); or iterative reconstruction. REPORTING DATA: Count of CT and Cardiac NM exams in prior 12 months: This patient has received 2 known CTs and 0 known cardiac nuclear medicine studies in the 12 months prior to the current study. COMPARISON: CT abdomen pelvis wo con [id number] 08/18/2022 2:38 PM RADIATION DOSE METRICS: Total DLP (mGy-cm): 1162.01 FINDINGS: Liver: Borderline hepatomegaly. Suspected minimal fatty changes of the liver. No mass. Gallbladder and bile ducts: Questionable minimal sludge layering in the fundus, (series 5, image 44 for example). No calcified stones. No ductal dilation. Pancreas: Normal. No ductal dilation. Spleen: Normal. No splenomegaly. Adrenal glands: Normal. No mass. Kidneys and ureters: Right obstructive uropathy with a 4 mm obstructing stone in the lower 3rd of the right ureter with back pressure resulting in right hydroureter and hydronephrosis. Enlargement of the right kidney concerning for right pyelonephritis. Clinical correlation is recommended Additional nonobstructing renal stones are again noted bilaterally. Stomach and bowel: Grossly stable. No obstruction. No mucosal thickening. Appendix: No evidence of appendicitis. Intraperitoneal space: Grossly stable. No free air. No significant fluid collection. Vasculature: No abdominal aortic aneurysm. Lymph nodes: No enlarged lymph nodes. Urinary bladder: Thickening of the bladder sanchez can be seen the setting of cystitis however the bladder is empty. If there is clinical concern, urine analysis could be performed for further evaluation. Reproductive: Status post hysterectomy. Bones/joints: Unremarkable. No acute fracture. Soft tissues: Unremarkable. CT/CT abdomen pelvis wo con [id number] IMPRESSION: 1. Right obstructive uropathy with a lower ureteric stone measuring 4 mm resulting in right hydroureter and hydronephrosis. Concern for right pyelonephritis, in the appropriate clinical setting. Concern for cystitis. Clinical correlation is recommended. 2. Additional bilateral nonobstructing renal stones. 3. No other significant change since prior.
--- NOTE | 2023-03-17 23:14 | W.ED.ABDPA2 ---
HPI - Abdominal Pain General: Chief Complaint: Abdominal Pain Stated Complaint: right abdominal, back pain right side Time Seen by Provider: 03/17/23 23:09 Source: patient Mode of arrival: ambulatory Limitations: no limitations History of Present Illness: 32-year-old female states that over the last 3 to 4 hours she has had increasing right lower abdominal pain states the pain is very sharp in nature. States pain is currently an 8 out of 10 she denies any nausea or vomiting denies any diarrhea denies any fevers. States pain is worse with movement denies any improving factors. She had a history of a hysterectomy. Associated Symptoms: Denies chills, diarrhea, dysuria, fever(s), nausea and vomiting Review of Systems Const: Denies: fever(s) or chills ENMT: Denies: throat pain or dental pain Card: Denies: chest pain Resp: Denies: dyspnea GI: Reports: abdominal pain; Denies: nausea, vomiting or diarrhea : Denies: dysuria Musc: Denies: neck pain or back pain Skin/Breast: Denies: rash Neuro: Denies: headache(s) PFSH ED PFSH: Medical History Allergic rhinitis due to allergen Arthritis Bilateral renal stones Bleeding per rectum Body mass index (BMI) of greater than 35 to 39.9 with comorbidity Calcium deficiency Celiac disease was told she had celiac disease after an EGD in 2013, but repeat EGD she was told she did not. She has not followed a gluten free diet. Degenerative disc disease External hemorrhoids History of CVA (cerebrovascular accident) (~08/2017) Treated at [facility]. Reported as hemorrhagic stroke, from having been on Depo Provera. History of gout Hypothyroid (~02/2022) No pertinent past medical history neghx: htn,dm,thyroid,dvt/pe PCP: Dr. Gayle Restless leg Smoker unmotivated to quit Surgical History H/O section (~2018) Primary Emergent C/S --performed by [facility]. H/O esophagogastroduodenoscopy 2 of these 2013 2021 H/O total hysterectomy History of colonoscopy (~10/2021) S/P tonsillectomy Status post hemorrhoidectomy (~10/2021) performed by [facility] Family History Family/Other Breast cancer Maternal Great Grandmother-- dx age unknown Father Diabetes Hypercholesteremia Hypertension Brother Diabetes Hypertension Stroke, Onset Age: 4 Grandmother Diabetes Maternal and Paternal Hypertension Maternal and Paternal Grandfather Diabetes Maternal and Paternal Heart disease Maternal Denies family history of Colon cancer Ovarian cancer Uterine cancer Thyroid disease Social History Smoking and tobacco status: current every day smoker (1PPD) cigarettes Packs smoked per day: 1 Alcohol intake: never Substance/Drug Use: never Physical Exam Const: COMMON NORMALS: no acute distress, patient oriented x3 and healthy appearing HENMT: COMMON NORMALS: normocephalic and atraumatic HEAD & SCALP: normocephalic and atraumatic Neck/C-Spine: COMMON NORMALS: full ROM and supple Chest: COMMONS NORMALS: normal inspection of the chest and normal palpation of entire chest wall Resp: COMMON NORMALS: normal respiratory effort, No retractions, No use of accessory muscles and clear to auscultation bilaterally AUSCULTATION: clear to auscultation bilaterally Cardio: COMMON NORMALS: regular rate, regular rhythm and No murmurs present (Cardio) RATE: regular rate RHYTHM: regular rhythm GI: COMMON NORMALS: Normal to inspection, nondistended, normoactive bowel sounds present, Soft to palpation and no masses PALPATION: Yes Soft to palpation and Yes Tenderness to palpation present (GI) Details: RLQ Extremity: COMMON NORMALS: normal to inspection and full ROM Neuro: COMMON NORMALS: patient oriented x3, moves all extremities and no focal motor deficits Psych: COMMON NORMALS: mental status grossly normal, Normal thought process present and cooperative THOUGHT PROCESS: Normal thought process present Skin: COMMON NORMALS: no rashes or lesions noted and no wounds GENERAL SKIN EXAM: no rashes or lesions noted Course Vital Signs: Vital signs: Vital Signs Temperature 97.6 F 03/17/23 23:12 Pulse Rate 68 03/18/23 00:47 Respiratory Rate 18 03/18/23 00:47 Blood Pressure 114/89 03/18/23 00:47 Pulse Oximetry 99 03/18/23 00:47 Oxygen Delivery Me thod Room Air 03/17/23 23:12 MDM - Abdominal Pain Medical Decision Making Patient presents here with right-sided flank pain she does have a kidney stone with an infection I spoke to urology at [facility] Dr. Linton will transfer there for higher level of care as we do not have any urology. Medical Records I reviewed the patient's medical records. Lab Data I reviewed the patient's lab results. 03/17/23 23:13 03/17/23 23:13 Labs/Radiology: Radiology Impressions Abdomen/Pelvis CT 03/17/23 23:13 IMPRESSION: 1. Right obstructive uropathy with a lower ureteric stone measuring 4 mm resulting in right hydroureter and hydronephrosis. Concern for right pyelonephritis, in the appropriate clinical setting. Concern for cystitis. Clinical correlation is recommended. 2. Additional bilateral nonobstructing renal stones. 3. No other significant change since prior. Laboratory Results WBC 11.36 10^3/uL (3.29-11.43) 03/17/23 23: RBC 4.45 10^6/uL (3.85-5.65) 03/17/23 23:13 Hgb 14.60 g/dL (11.27-16.99) 03/17/23 23:13 Hct 42.6 % (36-47) 03/17/23 23:13 MCV 95.7 fl (85-98) 03/17/23 23:13 MCH 32.8 pg (27-33) 03/17/23 23:13 MCHC 34.3 g/dL (30-55) 03/17/23 23:13 RDW 12.5 % (12.1-15.1) 03/17/23 23:13 Plt Count 322 10^3/cmm (157-399) 03/17/23 23:13 MPV 9.5 fL (7.4-10.4) 03/17/23 23:13 Neut % (Auto) 52.0 % 03/17/23 23:13 Lymph % (Auto) 39.0 % 03/17/23 23:13 [place] % (Auto) 5.5 % 03/17/23 23:13 Eos % (Auto) 2.6 % 03/17/23 23:13 Baso % (Auto) 0.5 % 03/17/23 23: Neut # (Auto) 5.90 10^3/uL (1.8-7.7) 03/17/23 23:13 Lymph # (Auto) 4.4 10^3/uL (0.8-4.8) 03/17/23 23:13 [place] # (Auto) 0.6 10^3/uL (0.2-0.9) 03/17/23 23:13 Eos # (Auto) 0.3 10^3/uL (0.0-0.8) 03/17/23 23:13 Baso # (Auto) 0.1 10^3/uL (0.0-0.1) 03/17/23 23:13 Nucleated RBC % (auto) 0 % 03/17/23 23:13 Nucleated RBCs # 0.0 /100WBC 03/17/23 23:13 Sodium 140 mmol/L (136-145) 03/17/23 23:13 Potassium 3.7 mmol/L (3.5-5.1) 03/17/23 23:13 Chloride 103 mmol/L (98-107) 03/17/23 23:13 Carbon Dioxide 24 mmol/L (22-29) 03/17/23 23:13 Anion Gap 16.7 (5-19) 03/17/23 23:13 BUN 12 mg/dL (6-20) 03/17/23 23:13 Creatinine 0.8 mg/dL (0.5-0.9) 03/17/23 23:13 GFR Calculation 84.2 mL/min (90-130) L 03/17/23 23:13 Glucose 102 mg/dL (65-115) 03/17/23 23:13 Calculated Osmolality 290 mOsm/kg (285-295) 03/17/23 23:13 Calcium 9.3 mg/dL (8.5-10.5) 03/17/23 23:13 Total Bilirubin 0.3 mg/dL (0.15-1.2) 03/17/23 23:13 AST 13 U/L (0-32) 03/17/23 23:13 ALT 17 U/L (0-33) 03/17/23 23:13 Alkaline Phosphatase 76 U/L (35-105) 03/17/23 23:13 Total Protein 7.3 g/dL (6.6-8.7) 03/17/23 23:13 Albumin 4.2 g/dL (3.5-5.2) 03/17/23 23:13 Globulin 3.1 g/dL (1.3-4.6) 03/17/23 23:13 Lipase 26 U/L (13-60) 03/17/23 23:13 Urine Color Red (Yellow) A 03/17/23 23:20 Urine Appearance Cloudy (CLEAR) A 03/17/23 23:20 Urine pH 5 (5-7) 03/17/23 23:20 Ur Specific [place] 1.025 (1.005-1.030) 03/17/23 23:20 Urine Protein 3+ (Negative) H 03/17/23 23:20 Urine Glucose (UA) Norm (Normal) 03/17/23 23:20 Urine Ketones 1+ (Negative) H 03/17/23 23:20 Urine Blood 3+ (Negative) H 03/17/23 23:20 Urine Nitrate Positive (Negative) H 03/17/23 23:20 Urine Bilirubin Neg (Negative) 03/17/23 23:20 Urine Urobilinogen 1 mg/dL (Negative) H 03/17/23 23:20 Ur Leukocyte Esterase 1+ (Negative) H 03/17/23 23:20 Urine RBC >100 /hpf (0-2) H 03/17/23 23:20 Urine WBC 10-15 /hpf (0-5) H 03/17/23 23:20 Ur Squamous Epith Cells 5-10 /hpf (0-5) H 03/17/23 23:20 Amorphous Sediment Not Reportable 03/17/23 23:20 Urine Bacteria 2+ /hpf (NONE) H 03/17/23 23:20 Urine Mucus 2+ /hpf 03/17/23 23:20 All radiology interpretation(s) finalized by discharge Discharge Plan Discharge Patient Disposition: Xfer Short-Term Hosp Clinical Impression: Kidney stone, Acute cystitis Condition: Stable Referrals: Robert Lau MD [Primary Care Provider] - Coding Level of Care Code ED Assisted Living Assistant for Genia Turner
[2023-03-17] MEDS: ondansetron 2 mg/ML SDV 2 mL 4 MG IVP (23:23)
[2023-03-17] MEDS: HYDROmorphone 1 mg/mL INJ 1 mL IVP (23:23)
[2023-03-17 23:34] VITALS: BP 131/96; PULSE 63; RESP 20; O2SAT 99
[2023-03-17 23:54] LABS: Add Urine Microscopic? YES; Bilirubin Urine Neg (Negative); Blood Urine 3+ (Negative); Glucose Urine UA Norm (Normal); Ketones Urine 1+ (Negative); Leukocyte Esterase Urine 1+ (Negative); Nitrate Urine Positive (Negative); Protein Urine 3+ (Negative); Specific Gravity, Urine 1.025 (1.005-1.030); Urine Appearance Cloudy (CLEAR); Urine Color Red (Yellow); Urobilinogen Urine 1 mg/dL (Negative); pH Urine 5 (5-7)
[2023-03-17 23:56] LABS: Add Urine Culture? Yes; Bacteria Urine 2+ /hpf; Mucus Urine 2+ /hpf; RBC Urine >100 /hpf (0-2)
[2023-03-18] LABS: Alanine Aminotransferase 17 U/L (0-33); Albumin Level 4.2 g/dL (3.5-5.2); Alkaline Phosphatase 76 U/L (35-105); Anion Gap 16.7 (5-19); Aspartate Amino Transferase 13 U/L (0-32); Blood Urea Nitrogen 12 mg/dL (6-20); Calcium 9.3 mg/dL (8.5-10.5); Carbon Dioxide 24 mmol/L (22-29); Chloride 103 mmol/L (98-107); Globulin 3.1 g/dL (1.3-4.6); Glomerular Filtration Rate 84.2 mL/min (90-130); Glucose 102 mg/dL (65-115); Lipase 26 U/L (13-60); Osmolality Calculated 290 mOsm/kg (285-295); Potassium 3.7 mmol/L (3.5-5.1); Sodium 140 mmol/L (136-145); Total Bilirubin 0.3 mg/dL (0.15-1.2); Total Protein 7.3 g/dL (6.6-8.7)
[2023-03-18 00:11] LABS: Basophils # 0.1 10^3/uL (0.0-0.1); Basophils % 0.5 %; Eosinophils # 0.3 10^3/uL (0.0-0.8); Eosinophils % 2.6 %; Hematocrit 42.6 % (36-47); Lymphocytes # 4.4 10^3/uL (0.8-4.8); Mean Corpuscular HGB Conc 34.3 g/dL (30-55); Mean Corpuscular Hemoglobin 32.8 pg (27-33); Mean Corpuscular Volume 95.7 fl (85-98); Mean Platelet Volume 9.5 fL (7.4-10.4); Monocytes # 0.6 10^3/uL (0.2-0.9); Monocytes % 5.5 %; Nucleated Red Blood Cells % 0 %; Platelet Count 322 10^3/cmm (157-399); Red Blood Count 4.45 10^6/uL (3.85-5.65); Red Cell Distribution Width 12.5 % (12.1-15.1); White Blood Count 11.36 10^3/uL (3.29-11.43)
[2023-03-18] MEDS: HYDROmorphone 1 mg/mL INJ 1 mL IVP ×2 (00:26→02:20)
[2023-03-18] MEDS: cefTRIAXone 1,000 MG in sodium chloride 0.9% (plus) 50 ML 100 MG IV (00:26)
[2023-03-18 00:47] VITALS: BP 114/89; PULSE 68; RESP 18; O2SAT 99
[2023-03-18 02:20] VITALS: RESP 18
[2023-03-18 02:22] VITALS: BP 133/71; PULSE 82; RESP 18; O2SAT 98
== END 2023-03-18 02:40 | disposition short-term general hospital (02) ==
PROVIDERS: Emergency Provider Emergency Medicine; PCP Family Medicine
DX: N20.2 Calculus of kidney with calculus of ureter (principal); N30.00 Acute cystitis without hematuria; F17.210 Nicotine dependence, cigarettes, uncomplicated; Z87.442 Personal history of urinary calculi; Z86.73 Personal history of transient ischemic attack (TIA), and cerebral infarction without residual deficits
CPT/HCPCS: 74176; 80053; 81001; 83690; 85025; 87086; 96365; 96366; 96375; 96376; 99285; J0696; J1170; J2405

== ENCOUNTER → 2023-04-13 10:26 | Outpatient (BNVA) | payer MEDICAID, SELFPAY | PROVIDERS: PCP Family Medicine; Referring Provider Family Medicine; Visit Provider Student in an Organized Health Care Education/Training Program | DX: M25.551 Pain in right hip (principal); M25.552 Pain in left hip | CPT/HCPCS: 73522 ==

== ENCOUNTER → 2023-07-16 15:56 | Outpatient (BNVA) | payer MEDICAID, SELFPAY | PROVIDERS: PCP Family Medicine; Visit Provider Family Medicine | DX: E03.9 Hypothyroidism, unspecified (principal); F41.9 Anxiety disorder, unspecified; G25.81 Restless legs syndrome; F32.1 Major depressive disorder, single episode, moderate | CPT/HCPCS: 84439; 84443 ==

== ENCOUNTER → 2023-07-26 09:54 | Outpatient (BNVA) | payer MEDICAID, SELFPAY | PROVIDERS: PCP Family Medicine; Visit Provider Internal Medicine Rheumatology | DX: Z79.899 Other long term (current) drug therapy (principal); M19.90 Unspecified osteoarthritis, unspecified site; Z11.1 Encounter for screening for respiratory tuberculosis; Z11.59 Encounter for screening for other viral diseases; M45.6 Ankylosing spondylitis lumbar region; Z71.85 Encounter for immunization safety counseling | CPT/HCPCS: 36415; 82306; 85651; 86140; 86480; 86704; 86803; 86812; 87340 ==

== ENCOUNTER → 2023-10-01 15:41 | Outpatient (BNVA) | payer MEDICAID, SELFPAY | PROVIDERS: PCP Family Medicine; Visit Provider Obstetrics & Gynecology | DX: R31.9 Hematuria, unspecified (principal); Z34.90 Encounter for supervision of normal pregnancy, unspecified, unspecified trimester | CPT/HCPCS: 80053; 81000; 87086 ==

== ENCOUNTER 2024-03-31 14:23 | Outpatient (CLI) | payer MEDICAID, SELFPAY ==
[2024-03-31 14:43] LABS: Basophils # 0.1 10^3/uL (0.0-0.1); Basophils % 0.8 %; Eosinophils # 0.3 10^3/uL (0.0-0.8); Eosinophils % 2.9 %; Hematocrit 40.1 % (36-47); Lymphocytes # 2.8 10^3/uL (0.8-4.8); Lymphocytes % 30.5 %; Mean Corpuscular HGB Conc 33.4 g/dL (30-55); Mean Corpuscular Hemoglobin 32.7 pg (27-33); Mean Corpuscular Volume 97.8 fl (85-98); Mean Platelet Volume 9.6 fL (7.4-10.4); Monocytes # 0.6 10^3/uL (0.2-0.9); Monocytes % 6.7 %; Neutrophils # 5.43 10^3/uL (1.8-7.7); Neutrophils % 58.6 %; Nucleated Red Blood Cells % 0 %; Platelet Count 288 10^3/cmm (157-399); Red Cell Distribution Width 13.1 % (12.1-15.1); White Blood Count 9.27 10^3/uL (3.29-11.43)
[2024-03-31 14:47] LABS: Erythrocyte Sedimentation Rate 40 mm/hr (0-15)
[2024-03-31 14:59] LABS: Alanine Aminotransferase 17 U/L (0-33); Alkaline Phosphatase 68 U/L (35-105); Aspartate Amino Transferase 11 U/L (0-32); C Reactive Protein 11.3 mg/L (0.0-4.9); Glomerular Filtration Rate 83.7 mL/min (90-130); Total Bilirubin 0.3 mg/dL (0.15-1.2)
== END 2024-03-31 14:24 | disposition home or self-care (01) ==
LOC: LAB 14:25
PROVIDERS: PCP Family Medicine; Visit Provider Internal Medicine Rheumatology
DX: Z79.899 Other long term (current) drug therapy (principal); M19.90 Unspecified osteoarthritis, unspecified site
CPT/HCPCS: 36415; 80076; 82565; 85025; 85651; 86140

== ENCOUNTER 2024-06-17 07:28 | Emergency (ER) | payer MEDICAID, SELFPAY ==
[2024-06-17] VITALS (10 sets, daily range): BP systolic 96–116; BP diastolic 63–79; PULSE 65–81; RESP 12–20; TEMP 36.3; O2SAT 94–99
--- NOTE | 2024-06-17 07:45 | ED_ITS ---
HPI - Abdominal Pain 2 General: Chief Complaint: Abdominal Pain Stated Complaint: rt side abd pain Time Seen by Provider: 06/17/24 07:36 History of Present Illness: 33-year-old female presents emergency ro om complaining of right lower quadrant abdominal pain that began over the last couple of days. She states she chronically has hematuria it has been evaluated before and is uncertain of the cause she has had kidney stones in the past although she is uncertain if this really feels like a kidney stone. She notes the pain is better if she is remains very still and does not move. Pain is focused in the right lower quadrant sometimes radiates across the pelvis. She has been a little bit constipated lately denies any dysuria urgency or frequency no hematemesis or coffee-ground emesis has been very nauseous. Associated Symptoms: Reports nausea; Denies chills, dysuria and fever(s) Related Data Home Medications Medication Instructions Recorded Confirmed omeprazole 20 mg capsule,delayed 20 mg PO DAILY PRN Heartburn 05/29/22 06/17/24 release albuterol sulfate 90 mcg/actuation 2 puff inhalation QID PRN 01/13/23 06/17/24 aerosol inhaler (Ventolin HFA) Shortness Of Breath Or Wheezing cholecalciferol (vitamin D3) 10 10 mcg PO DAILY 10/01/23 06/17/24 mcg (400 unit) capsule buspirone 15 mg tablet 15 mg PO BID 06/17/24 06/17/24 ropinirole 1 mg tablet 1 mg PO DAILY 06/17/24 06/17/24 Previous Rx's Medication Instructions Recorded vortioxetine 20 mg tablet 20 mg PO DAILY #90 tabs 07/16/23 (Trintellix) thyroid (pork) 60 mg tablet 60 mg PO DAILY #60 tabs 11/01/23 leflunomide 20 mg tablet 20 mg PO DAILY #30 tabs 04/26/24 ciprofloxacin HCl 500 mg tablet 500 mg PO Q12H #14 tabs 06/17/24 (Cipro) hydrocodone 5 mg-acetaminophen 325 1 tab PO Q6H PRN pain #15 tabs 06/17/24 mg tablet promethazine 25 mg tablet 25 mg PO Q6H PRN nausea and 06/17/24 vomiting #20 tabs Allergies Allergy/AdvReac Type Severity Reaction Status Date / Time bismuth subsalicylate Allergy SICK TO Verified 11/04/23 15:04 [From Pepto-Bismol] STOMACH iodine Allergy ALGY-Rash Verified 11/04/23 15:04 latex Allergy ALGY-Rash Verified 11/04/23 15:04 NSAIDS (Non-Steroidal Allergy Unknown Verified 11/04/23 15:04 Anti-Inflamma tramadol Allergy SICK TO Verified 11/04/23 15:04 STOMACH control Allergy Severe ADR-Headach Uncoded 11/04/23 15:04 e Review of Systems 2 Const: Denies: fever(s) or chills Card: Denies: chest pain Resp: Denies: dyspnea GI: Reports: abdominal pain and nausea : Denies: dysuria, urinary frequency or urinary urgency Musc: Denies: neck pain or back pain Skin/Breast: Denies: rash PFSH ED 2 PFSH: Medical History Allergies High risk medication use Immunization counseling Inflammatory arthritis Arthritis Degenerative disc disease Restless leg Calcium deficiency Smoker unmotivated to quit Body mass index (BMI) of greater than 35 to 39.9 with comorbidity Allergic rhinitis due to allergen Hypothyroid (~02/2022) No pertinent past medical history neghx: htn,dm,thyroid,dvt/pe PCP: Dr. Gayle History of CVA (cerebrovascular accident) (~08/2017) Treated at [facility]. Reported as hemorrhagic stroke, from having been on Depo Provera. History of gout Celiac disease was told she had celiac disease after an EGD in 2013, but repeat EGD she was told she did not. She has not followed a gluten free diet. External hemorrhoids Bleeding per rectum Bilateral renal stones Surgical History H/O total hysterectomy H/O esophagogastroduodenoscopy 2 of these 2013 2021 History of colonoscopy (~10/2021) Status post hemorrhoidectomy (~10/2021) performed by [facility] S/P tonsillectomy H/O section (~2018) Primary Emergent C/S --performed by [facility]. Family History Family/Other Breast cancer Maternal Great Grandmother-- dx age unknown Father Diabetes Hypercholesteremia Hypertension Brother Diabetes Hypertension Stroke, Onset Age: 4 Grandmother Diabetes Maternal and Paternal Hypertension Maternal and Paternal Grandfather Diabetes Maternal and Paternal Heart disease Maternal Other Cancer Rheumatoid arthritis Denies family history of Colon cancer Ovarian cancer Uterine cancer Thyroid disease Social History Smoking and tobacco/nicotine status: current every day tobacco/nicotine user cigarettes Packs smoked per day: 1 Alcohol intake: never Substance/Drug Use: never Physical Exam 2 Const: GENERAL APPEARANCE: cooperative ORIENTATION/CONSCIOUSNESS: Yes awake, Yes oriented to person, Yes oriented to place and Yes oriented to time HENMT: COMMON NORMALS: normocephalic, atraumatic and hearing grossly normal bilaterally HEAD & SCALP: normocephalic and atraumatic Resp: COMMON NORMALS: normal respiratory effort, No retractions, No use of accessory muscles and clear to auscultation bilaterally AUSCULTATION: clear to auscultation bilaterally Cardio: COMMON NORMALS: regular rate, regular rhythm and No murmurs present (Cardio) RATE: regular rate RHYTHM: regular rhythm GI: COMMON NORMALS: No hepatosplenomegaly present AUSCULTATION: Yes normoactive bowel sounds PALPATION: Yes Tenderness to palpation present (GI), No Guarding due to palpation present (GI) and Yes No hepatosplenomegaly present Extremity: COMMON NORMALS: normal to inspection, capillary refill normal, no clubbing, cyanosis or edema, no calf tenderness and no pedal edema Neuro: SENSORIUM/ORIENTATION: Yes oriented to person, Yes oriented to place and Yes oriented to time Skin: COMMON NORMALS: no rashes or lesions noted GENERAL SKIN EXAM: no rashes or lesions noted Course 2 Vital Signs: Vital signs: Vital Signs Temperature 97.4 F L 06/17/24 07:31 Pulse Rate 69 06/17/24 11:23 Respiratory Rate 18 06/17/24 11:16 Blood Pressure 115/63 06/17/24 11:23 Pulse Oximetry 97 06/17/24 11:23 Oxygen Delivery Me thod Room Air 06/17/24 10:43 MDM - Abdominal Pain Medical Decision Making Urine shows fair amount of microscopic red blood cells. The CT consistent with having recently passed a stone additionally there is a fair amount of inflammation suspect she may have a little bit of infection as well she does have some white blood cells in her urine we will start her on oral antibiotics ciprofloxacin 500 twice daily for 7 days. Strain urine for stone hydrocodone promethazine as needed return if pain is not controlled. Medical Records I reviewed the patient's medical records. Lab Data I reviewed the patient's lab results. 06/17/24 07:52 06/17/24 07:52 Labs/Radiology: Radiology Impressions Abdomen/Pelvis CT 06/17/24 07:47 IMPRESSION: No obstructing urinary stone. Mild right periureteric and perinephric fat stranding with prominence of the right renal pelvis that might be related to recent passage of stone versus ascending infection. COMMENTS: Consistent with the [employer]'s Incidental Findings Committee white paper (J Am Bong Radiol 2018): Any incidental renal lesion less than 1 cm or classified as too small to characterize, or any incidental cystic renal lesion characterized as simple-appearing, is likely benign. No follow-up imaging is recommended for these lesions per consensus recommendations based on imaging criteria. Laboratory Results WBC 10.12 10^3/uL (3.29-11.43) 06/17/24 07:52 RBC 4.30 10^6/uL (3.85-5.65) 06/17/24 07:52 Hgb 13.80 g/dL (11.27-16.99) 06/17/24 07:52 Hct 41.5 % (36-47) 06/17/24 07:52 MCV 96.5 fl (85-98) 06/17/24 07:52 MCH 32.1 pg (27-33) 06/17/24 07:52 MCHC 33.3 g/dL (30-55) 06/17/24 07:52 RDW 13.2 % (12.1-15.1) 06/17/24 07:52 Plt Count 247 10^3/cmm (157-399) 06/17/24 07:52 MPV 9.6 fL (7.4-10.4) 06/17/24 07:52 Neut % (Auto) 75.8 % 06/17/24 07:52 Lymph % (Auto) 14.7 % 06/17/24 07:52 [place] % (Auto) 6.5 % 06/17/24 07:52 Eos % (Auto) 1.9 % 06/17/24 07:52 Baso % (Auto) 0.7 % 06/17/24 07:52 Neut # (Auto) 7.67 10^3/uL (1.8-7.7) 06/17/24 07:52 Lymph # (Auto) 1.5 10^3/uL (0.8-4.8) 06/17/24 07:52 [place] # (Auto) 0.7 10^3/uL (0.2-0.9) 06/17/24 07:52 Eos # (Auto) 0.2 10^3/uL (0.0-0.8) 06/17/24 07:52 Baso # (Auto) 0.1 10^3/uL (0.0-0.1) 06/17/24 07:52 Nucleated RBC % (auto) 0 % 06/17/24 07:52 Nucleated RBCs # 0.0 /100WBC 06/17/24 07:52 Sodium 138 mmol/L (136-145) 06/17/24 07:52 Potassium 4.2 mmol/L (3.5-5.1) 06/17/24 07:52 Chloride 104 mmol/L (98-107) 06/17/24 07:52 Carbon Dioxide 22 mmol/L (22-29) 06/17/24 07:52 Anion Gap 16.2 (5-19) 06/17/24 07:52 BUN 12 mg/dL (6-20) 06/17/24 07:52 Creatinine 0.9 mg/dL (0.5-0.9) 06/17/24 07:52 GFR Calculation 73.0 mL/min (90-130) L 06/17/24 07:52 Glucose 117 mg/dL (65-115) H 06/17/24 07:52 Calculated Osmolality 287 mOsm/kg (285-295) 06/17/24 07:52 Lactic Acid 2.0 mmol/L (0.5-2.2) 06/17/24 07:52 Calcium 8.8 mg/dL (8.5-10.5) 06/17/24 07:52 Total Bilirubin 0.4 mg/dL (0.15-1.2) 06/17/24 07:52 AST 14 U/L (0-32) 06/17/24 07:52 ALT 15 U/L (0-33) 06/17/24 07:52 Alkaline Phosphatase 62 U/L (35-105) 06/17/24 07:52 Total Protein 6.8 g/dL (6.6-8.7) 06/17/24 07:52 Albumin 3.9 g/dL (3.5-5.2) 06/17/24 07:52 Globulin 2.9 g/dL (1.3-4.6) 06/17/24 07:52 Urine Color Yellow (Yellow) 06/17/24 07:42 Urine Appearance Turbid (CLEAR) A 06/17/24 07:42 Urine pH 5.5 (5-7) 06/17/24 07:42 Ur Specific [place] 1.024 (1.005-1.030) 06/17/24 07:42 Urine Protein 1+ (Negative) A 06/17/24 07:42 Urine Glucose (UA) Negative (Normal) 06/17/24 07:42 Urine Ketones Trace (Negative) 06/17/24 07:42 Urine Blood 3+ (Negative) A 06/17/24 07:42 Urine Nitrate Negative (Negative) 06/17/24 07:42 Urine Bilirubin Negative (Negative) 06/17/24 07:42 Urine Urobilinogen 1.0 mg/dL (Negative) 06/17/24 07:42 Ur Leukocyte Esterase Trace (Negative) A 06/17/24 07:42 Urine RBC >100 /hpf (0-2) H 06/17/24 07:42 Urine WBC 51-100 /hpf (0-5) H 06/17/24 07:42 Ur Squamous Epith Cells 21-50 /hpf (0-5) 06/17/24 07:42 Amorphous Sediment 1+ /hpf 06/17/24 07:42 Urine Bacteria 4+ /hpf (NONE) H 06/17/24 07:42 Hyaline Casts 4.52 /lpf 06/17/24 07:42 Coarse Granular Casts 0-4 /lpf H 06/17/24 07:42 All radiology interpretation(s) finalized by discharge Discharge Plan Discharge Patient Disposition: Home Clinical Impression: Pyelonephritis Condition: Stable Prescriptions: New hydrocodone-acetaminophen 5-325 mg tablet 1 tab PO Q6H PRN (Reason: pain) Qty: 15 0RF promethazine 25 mg tablet 25 mg PO Q6H PRN (Reason: nausea and vomiting) Qty: 20 0RF ciprofloxacin HCl [Cipro] 500 mg tablet 500 mg PO Q12H Qty: 14 0RF No Action omeprazole 20 mg capsule,delayed release(DR/EC) 20 mg PO DAILY PRN (Reason: Heartburn) cholecalciferol (vitamin D3) 10 mcg (400 unit) capsule 10 mcg PO DAILY albuterol sulfate [Ventolin HFA] 90 mcg/actuation HFA aerosol inhaler 2 puff inhalation QID PRN (Reason: Shortness Of Breath Or Wheezing) Trintellix 20 mg tablet 20 mg PO DAILY Qty: 90 2RF thyroid (pork) 60 mg tablet 60 mg PO DAILY Qty: 60 1RF leflunomide 20 mg tablet 20 mg PO DAILY Qty: 30 3RF ropinirole 1 mg tablet 1 mg PO DAILY Rx Instructions: TAKE ONE TABLET BY MOUTH DAILY buspirone 15 mg tablet 15 mg PO BID Rx Instructions: TAKE ONE TABLET BY MOUTH TWICE DAILY Discharge Orders: Discharge ED (Routine); Ordered 06/17/24 Ordered By: Elvin Beard Referrals: Chaka Gayle MD [Primary Care Provider] - Discharge Diet: Usual diet Discharge Activity: Resume usual activity Patient Instructions: Urinary Tract Infection in Women (ED), How to Strain Your Urine (ED), Opioid Safety, Pain Management, Pyelonephritis Activity Restrictions/Additional Instructions: Thank you for choosing [facility] for your healthcare needs today. It is very important that you follow up as instructed or that you return to the Emergency Department should you have concerns or if your condition changes or worsens in any way. You were seen in the emergency room with complaint of right flank pain. Your white count was normal your urine showed signs of an infection and possible kidney stone. The CT did not show acute appendicitis and did shows signs that you had likely recently passed a kidney stone but there was no stone in the ureter at this time. There is also signs of a possible interaction. Will discharge you home strain your urine in case there is a stone in the bladder. 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
--- NOTE | 2024-06-17 07:47 | CTR_ITS ---
PROCEDURE INFORMATION: Exam: CT Abdomen And Pelvis Without Contrast Exam date and time: 06/17/2024 8:28 AM Age: 33 years old Clinical indication: Abdominal pain; Flank; Right; Additional info: Flank pain, right lower quadrant pain TECHNIQUE: Imaging protocol: Computed tomography of the abdomen and pelvis without contrast. Radiation optimization: All CT scans at this facility use at least one of these dose optimization techniques: automated exposure control; mA and/or kV adjustment per patient size (includes targeted exams where dose is matched to clinical indication); or iterative reconstruction. COMPARISON: CT abdomen pelvis wo con [id number] 03/17/2023 11:55 PM RADIATION DOSE METRICS: Total DLP (mGy-cm): 1068.73 FINDINGS: Liver: Normal. No mass. Gallbladder and biliary ducts: Normal. No calcified stones. No ductal dilation. Pancreas: Normal. No ductal dilation. Spleen: Normal. No splenomegaly. Adrenal glands: Normal. No mass. Kidneys and ureters: Hypodense lesion in the lower pole of the right kidney measuring 1 cm, likely representing a cyst. No obstructing urinary stones. 2 nonobstructing stones in the lower pole of the left kidney measuring up to 3 mm. Two nonobstructing stones in the right kidney measuring up to 1 cm in the interpolar region. Mild right periureteric and perinephric fat stranding with prominence of the right renal pelvis. Stomach and bowel: Unremarkable. No obstruction. No mucosal thickening. Appendix: No evidence of appendicitis. Intraperitoneal space: Unremarkable. No free air. No significant fluid collection. Vasculature: There are numerous benign phleboliths in the pelvis. Lymph nodes: Unremarkable. No enlarged lymph nodes. Urinary bladder: Unremarkable as visualized. Reproductive: Unremarkable as visualized. Bones/joints: Unremarkable. No acute fracture. Soft tissues: There is a fat-containing umbilical hernia. CT/CT kidney stone [id number] IMPRESSION: No obstructing urinary stone. Mild right periureteric and perinephric fat stranding with prominence of the right renal pelvis that might be related to recent passage of stone versus ascending infection. COMMENTS: Consistent with the [employer]'s Incidental Findings Committee white paper (J Am Bong Radiol 2018): Any incidental renal lesion less than 1 cm or classified as too small to characterize, or any incidental cystic renal lesion characterized as simple-appearing, is likely benign. No follow-up imaging is recommended for these lesions per consensus recommendations based on imaging criteria.
[2024-06-17 07:59] LABS: Basophils # 0.1 10^3/uL (0.0-0.1); Basophils % 0.7 %; Eosinophils # 0.2 10^3/uL (0.0-0.8); Eosinophils % 1.9 %; Hematocrit 41.5 % (36-47); Lymphocytes # 1.5 10^3/uL (0.8-4.8); Lymphocytes % 14.7 %; Mean Corpuscular HGB Conc 33.3 g/dL (30-55); Mean Corpuscular Hemoglobin 32.1 pg (27-33); Mean Corpuscular Volume 96.5 fl (85-98); Mean Platelet Volume 9.6 fL (7.4-10.4); Monocytes # 0.7 10^3/uL (0.2-0.9); Monocytes % 6.5 %; Neutrophils # 7.67 10^3/uL (1.8-7.7); Neutrophils % 75.8 %; Nucleated Red Blood Cells % 0 %; Platelet Count 247 10^3/cmm (157-399); Red Cell Distribution Width 13.2 % (12.1-15.1); White Blood Count 10.12 10^3/uL (3.29-11.43)
[2024-06-17] MEDS: morphine 4 mg/mL SDV 1 mL IVP ×2 (08:13→11:16)
[2024-06-17] MEDS: ondansetron 2 mg/ML SDV 2 mL 4 MG IVP (08:13)
[2024-06-17 08:14] LABS: Alanine Aminotransferase 15 U/L (0-33); Albumin Level 3.9 g/dL (3.5-5.2); Alkaline Phosphatase 62 U/L (35-105); Anion Gap 16.2 (5-19); Aspartate Amino Transferase 14 U/L (0-32); Blood Urea Nitrogen 12 mg/dL (6-20); Calcium 8.8 mg/dL (8.5-10.5); Carbon Dioxide 22 mmol/L (22-29); Chloride 104 mmol/L (98-107); Creatinine Clr Calc Pharmacy 113.8074; Globulin 2.9 g/dL (1.3-4.6); Glucose 117 mg/dL (65-115); Osmolality Calculated 287 mOsm/kg (285-295); Potassium 4.2 mmol/L (3.5-5.1); Sodium 138 mmol/L (136-145); Total Bilirubin 0.4 mg/dL (0.15-1.2); Total Protein 6.8 g/dL (6.6-8.7)
[2024-06-17 08:18] LABS: Bilirubin Urine Negative (Negative); Blood Urine 3+ (Negative); Glucose Urine UA Negative (Normal); Ketones Urine Trace (Negative); Leukocyte Esterase Urine Trace (Negative); Nitrate Urine Negative (Negative); Protein Urine 1+ (Negative); Specific Gravity, Urine 1.024 (1.005-1.030); Urine Appearance Turbid (CLEAR); Urine Color Yellow (Yellow); pH Urine 5.5 (5-7)
[2024-06-17 08:23] LABS: Add Urine Microscopic? YES; Bacteria Urine 4+ /hpf; Hyaline Casts Urine 4.52 /lpf; RBC Urine >100 /hpf (0-2); Squamous Epithelial Cell Urine 21-50 /hpf (0-5); WBC Urine 51-100 /hpf (0-5)
[2024-06-17 08:32] LABS: UA Slide Review UA Slide Review Perf
[2024-06-17 08:33] LABS: Amorphous Sediment Urine 1+ /hpf; Coarse Granular Casts Urine 0-4 /lpf
[2024-06-17] MEDS: cefTRIAXone 1,000 mg SDV 1000 MG IVP (09:29)
[2024-06-17] MEDS: methylPREDNISolone sod succ 125 mg/2 mL INJ IVP (09:58)
[2024-06-17] MEDS: diphenhydrAMINE 50 mg/mL SDV 1mL IVP (09:58)
== END 2024-06-17 11:25 | disposition home or self-care (01) ==
PROVIDERS: Emergency Provider Family Medicine; PCP Family Medicine
DX: N12 Tubulo-interstitial nephritis, not specified as acute or chronic (principal)
CPT/HCPCS: 36415; 74176; 80053; 81001; 83605; 85025; 87040; 96374; 96375; 96376; 99285; J0696; J1200; J2270; J2405; J2919

== ENCOUNTER → 2024-12-14 12:04 | Outpatient (BNVA) | payer MEDICAID, SELFPAY | PROVIDERS: PCP Family Medicine; Visit Provider Internal Medicine Rheumatology | DX: Z79.899 Other long term (current) drug therapy (principal); M54.9 Dorsalgia, unspecified | CPT/HCPCS: 36415; 72072; 80076; 82306; 82565; 82657; 85025; 85651; 86140; 86480 ==

== ENCOUNTER 2024-12-22 08:43 | Emergency (ER) | payer MEDICAID, SELFPAY ==
[2024-12-22 08:53] VITALS: BP 111/76; PULSE 93; RESP 16; TEMP 36.7; O2SAT 98; BMI 35.2
[2024-12-22 09:48] LABS: Hematocrit 42.7 % (36-47); Hemoglobin 14.40 g/dL (11.27-16.99); Mean Corpuscular HGB Conc 33.7 g/dL (30-55); Mean Corpuscular Hemoglobin 33.0 pg (27-33); Mean Corpuscular Volume 97.7 fl (85-98); Nucleated Red Blood Cells % 0 %; Platelet Count 305 10^3/cmm (157-399); Red Blood Count 4.37 10^6/uL (3.85-5.65); White Blood Count 12.12 10^3/uL (3.29-11.43)
[2024-12-22 10:13] LABS: Alanine Aminotransferase 9 U/L (0-33); Albumin Level 4.1 g/dL (3.5-5.2); Alkaline Phosphatase 73 U/L (35-105); Anion Gap 15.6 (5-19); Aspartate Amino Transferase 10 U/L (0-32); Blood Urea Nitrogen 13 mg/dL (6-20); Calcium 9.3 mg/dL (8.5-10.5); Carbon Dioxide 23 mmol/L (22-29); Chloride 108 mmol/L (98-107); Creatinine Clr Calc Pharmacy 165.2893; Globulin 3.1 g/dL (1.3-4.6); Glucose 96 mg/dL (65-115); HCG, Serum Qual Negative (Negative); Lipase 88 U/L (13-60); Osmolality Calculated 294 mOsm/kg (285-295); Potassium 4.6 mmol/L (3.5-5.1); Sodium 142 mmol/L (136-145); Total Protein 7.2 g/dL (6.6-8.7)
[2024-12-22 10:55] LABS: Glucose Urine UA Negative (Normal); Nitrate Urine Negative (Negative); Specific Gravity, Urine 1.013 (1.005-1.030)
--- NOTE | 2024-12-22 10:56 | W.ED.ABDPA2 ---
HPI - Abdominal Pain General: Chief Complaint: Abdominal Pain Stated Complaint: Rt abdominal pain, front and back Time Seen by Provider: 12/22/24 08:52 Source: patient Mode of arrival: ambulatory Limitations: no limitations History of Present Illness: Patient is a 34-year-old female presents to ED today with a complaint of right sided abdominal pain beginning yesterday. Patient states she has a longstanding history of urolithiasis and states her symptoms today feel similar. She is not having any flank pain. She has some degree of chronic back pain that she states is at baseline. She is not having any nausea, vomiting, changes in bowel movements. She has not noted any dysuria, urinary frequency or hesitancy, or hematuria. MD elicited complaint: abdominal pain Onset (ago): day(s) (yesterday) Pain Consistency: constant Location: RUQ and RLQ Severity: moderate Radiation: none Migration to: no migration Exacerbating factors: nothing Relieving factors: nothing Associated Symptoms: Denies change in bowel habits, chills, constipation, diarrhea, dysuria, fever(s), hematuria, nausea and vomiting Related Data Home Medications ?Medication ?Instructions ?Recorded ?Confirmed omeprazole 20 mg capsule,delayed 20 mg PO DAILY PRN Heartburn 05/29/22 12/14/24 release albuterol sulfate 90 mcg/actuation 2 puff inhalation QID PRN 01/13/23 12/14/24 aerosol inhaler (Ventolin HFA) Shortness Of Breath Or Wheezing cholecalciferol (vitamin D3) 10 10 mcg PO DAILY 10/01/23 12/14/24 mcg (400 unit) capsule buspirone 15 mg tablet 15 mg PO BID 06/17/24 12/14/24 Previous Rx's ?Medication ?Instructions ?Recorded vortioxetine 20 mg tablet 20 mg PO DAILY #90 tabs 07/16/23 (Trintellix) thyroid (pork) 60 mg tablet 60 mg PO DAILY #60 tabs 11/01/23 ropinirole 1 mg tablet 1 mg PO DAILY #30 tabs 08/16/24 azathioprine 50 mg tablet See Rx Instructions PO .COMPLEX 12/14/24 #90 tabs prednisone 20 mg tablet See Rx Instructions PO .COMPLEX 12/14/24 PRN joint pain flare #30 tabs Allergies Allergy/AdvReac Type Severity Reaction Status Date / Time bismuth subsalicylate (From Allergy SICK TO Verified 12/14/24 11:10 Pepto-Bismol) STOMACH iodine Allergy ALGY-Rash Verified 12/14/24 11:10 latex Allergy ALGY-Rash Verified 12/14/24 11:10 NSAIDS (Non-Steroidal Allergy Unknown Verified 12/14/24 11:10 Anti-Inflamma tramadol Allergy SICK TO Verified 12/14/24 11:10 STOMACH methotrexate AdvReac Intermediate ADR-Gastrointestinal Verified 12/14/24 11:11 Upset control Allergy Severe ADR-Headach Uncoded 12/14/24 11:10 e Review of Systems Const: Denies: fever(s), chills, body aches, fatigue or malaise Card: Denies: chest pain Resp: Denies: dyspnea GI: Reports: abdominal pain; Denies: nausea, vomiting, diarrhea, constipation or change in bowel habits : Denies: flank pain, difficulty voiding, dysuria, urinary frequency, urinary urgency, urinary hesitancy, hematuria, vaginal discharge or pelvic pain Musc: Reports: back pain (chronic-at baseline); Denies: neck pain, extremity pain, extremity swelling, joint pain, joint swelling or joint redness Skin/Breast: Denies: rash Neuro: Denies: headache(s), numbness in extremities, weakness in extremities, sensory changes or dizziness PFSH ED PFSH: Medical History Allergies High risk medication use Immunization counseling Inflammatory arthritis Arthritis Degenerative disc disease Restless leg Calcium deficiency Smoker unmotivated to quit Body mass index (BMI) of greater than 35 to 39.9 with comorbidity Allergic rhinitis due to allergen Hypothyroid (~02/2022) No pertinent past medical history neghx: htn,dm,thyroid,dvt/pe PCP: Dr. Gayle History of CVA (cerebrovascular accident) (~08/2017) Treated at [facility]. Reported as hemorrhagic stroke, from having been on Depo Provera. History of gout Celiac disease was told she had celiac disease after an EGD in 2013, but repeat EGD she was told she did not. She has not followed a gluten free diet. External hemorrhoids Bleeding per rectum Bilateral renal stones Surgical History H/O total hysterectomy H/O esophagogastroduodenoscopy 2 of these 2013 2021 History of colonoscopy (~10/2021) Status post hemorrhoidectomy (~10/2021) performed by [facility] tonsillectomy H/O section (~2018) Primary Emergent C/S --performed by [facility]. Family History Family/Other Breast cancer Maternal Great Grandmother-- dx age unknown Father Diabetes Hypercholesteremia Hypertension Brother Diabetes Hypertension Stroke, Onset Age: 4 Grandmother Diabetes Maternal and Paternal Hypertension Maternal and Paternal Grandfather Diabetes Maternal and Paternal Heart disease Maternal Other Cancer Rheumatoid arthritis Denies family history of Colon cancer Ovarian cancer Uterine cancer Thyroid disease Social History Smoking and tobacco/nicotine status: current every day tobacco/nicotine user cigarettes Packs smoked per day: 1 Alcohol intake: never Substance/Drug Use: never Physical Exam Const: COMMON NORMALS: no acute distress, patient oriented x3, no limitations, alert and well nourished GENERAL APPEARANCE: cooperative NUTRITIONAL APPEARANCE: obese ORIENTATION/CONSCIOUSNESS: Yes awake, Yes oriented to person and Yes oriented to time Resp: COMMON NORMALS: normal respiratory effort and clear to auscultation bilaterally AUSCULTATION: clear to auscultation bilaterally Cardio: COMMON NORMALS: regular rate and regular rhythm RATE: regular rate RHYTHM: regular rhythm GI: COMMON NORMALS: Normal to inspection, nondistended, normoactive bowel sounds present, Soft to palpation, No hepatosplenomegaly present and no masses INSPECTION: Yes normal to inspection AUSCULTATION: Yes normoactive bowel sounds PALPATION: Yes Soft to palpation, Yes Tenderness to palpation present (GI) (throughout R abdomen), No Guarding due to palpation present (GI), No Rigid due to palpation and Yes No hepatosplenomegaly present : COMMON NORMALS: Yes no CVA tenderness BLADDER/KIDNEY EXAM: Yes no CVA tenderness Back/Pelvis: COMMON NORMALS: no CVA tenderness, thoracic and lumbar spine normal to inspection, no thoracic nor lumbar tenderness, thoraco-lumbar ROM normal and straight leg raise negative bilaterally LUMBAR SPINE/LOWER BACK: Yes paraspinal muscle tenderness Lumbar paraspinal muscle tenderness: right (chronic) Extremity: COMMON NORMALS: capillary refill normal, no clubbing, cyanosis or edema, no calf tenderness and no pedal edema GENERAL: Yes normal exam except as noted Neuro: COMMON NORMALS: patient oriented x3, moves all extremities, no focal motor deficits and no sensory deficits noted SENSORIUM/ORIENTATION: Yes alert, Yes oriented to person and Yes oriented to time Skin: COMMON NORMALS: no rashes or lesions noted GENERAL SKIN EXAM: no rashes or lesions noted Course Vital Signs: Vital signs: Vital Signs Temperature 98.0 F 12/22/24 08:53 Pulse Rate 78 12/22/24 11:06 Respiratory Rate 18 12/22/24 11:18 Blood Pressure 122/76 12/22/24 11:06 Pulse Oximetry 93 12/22/24 11:06 Oxygen Delivery Me thod Room Air 12/22/24 08:53 MDM - Abdominal Pain Medical Decision Making Patient's vital signs are stable. Blood work is nonactionable. UA with hematuria but does not appear infected. CT scan does not visualize a stone. She does have some findings to her right renal pelvis and ureter that could be consistent with a recently passed stone although similar findings were noted on the prior study so this could be chronic. No other acute abnormalities in her abdomen/pelvis were visualized. Patient can be allowed discharge from the emergency department with recommendations to follow-up with primary care next week. Return ED precautions discussed. Medical Records I reviewed the patient's medical records. Lab Data I reviewed the patient's lab results. 12/22/24 09:42 12/22/24 09:42 Labs/Radiology: Radiology Impressions Abdomen/Pelvis CT 12/22/24 11:01 IMPRESSION: 1. Nonobstructing stones in both kidneys. No ureteral stones. 2. Mild fullness of the RIGHT renal pelvis and proximal RIGHT ureter with periureteral stranding. No calcified stone can be identified in the RIGHT ureter. Similar findings on the prior study. Changes could be secondary to recently passed stone or infection. Changes could also be chronic. Laboratory Results WBC 12.12 10^3/uL (3.29-11.43) H 12/22/24 09:42 RBC 4.37 10^6/uL (3.85-5.65) 12/22/24 09:42 Hgb 14.40 g/dL (11.27-16.99) 12/22/24 09:42 Hct 42.7 % (36-47) 12/22/24 09:42 MCV 97.7 fl (85-98) 12/22/24 09:42 MCH 33.0 pg (27-33) 12/22/24 09:42 MCHC 33.7 g/dL (30-55) 12/22/24 09:42 RDW 13.1 % (12.1-15.1) 12/22/24 09:42 Plt Count 305 10^3/cmm (157-399) 12/22/24 09:42 MPV 9.6 fL (7.4-10.4) 12/22/24 09:42 Neut % (Auto) 70.5 % 12/22/24 09:42 Lymph % (Auto) 20.1 % 12/22/24 09:42 Adams % (Auto) 5.7 % 12/22/24 09:42 Eos % (Auto) 2.4 % 12/22/24 09:42 Baso % (Auto) 0.8 % 12/22/24 09:42 Neut # (Auto) 8.54 10^3/uL (1.8-7.7) H 12/22/24 09:42 Lymph # (Auto) 2.4 10^3/uL (0.8-4.8) 12/22/24 09:42 Adams # (Auto) 0.7 10^3/uL (0.2-0.9) 12/22/24 09:42 Eos # (Auto) 0.3 10^3/uL (0.0-0.8) 12/22/24 09:42 Baso # (Auto) 0.1 10^3/uL (0.0-0.1) 12/22/24 09:42 Nucleated RBC % (auto) 0 % 12/22/24 09:42 Nucleated RBCs # 0.0 /100WBC 12/22/24 09:42 Sodium 142 mmol/L (136-145) 12/22/24 09:42 Potassium 4.6 mmol/L (3.5-5.1) 12/22/24 09:42 Chloride 108 mmol/L (98-107) H 12/22/24 09:42 Carbon Dioxide 23 mmol/L (22-29) 12/22/24 09:42 Anion Gap 15.6 (5-19) 12/22/24 09:42 BUN 13 mg/dL (6-20) 12/22/24 09:42 Creatinine 0.6 mg/dL (0.5-0.9) 12/22/24 09:42 GFR Calculation 115.9 mL/min (90-130) 12/22/24 09:42 Glucose 96 mg/dL (65-115) 12/22/24 09:42 Calculated Osmolality 294 mOsm/kg (285-295) 12/22/24 09:42 Calcium 9.3 mg/dL (8.5-10.5) 12/22/24 09:42 Total Bilirubin 0.2 mg/dL (0.15-1.2) 12/22/24 09:42 AST 10 U/L (0-32) 12/22/24 09:42 ALT 9 U/L (0-33) 12/22/24 09:42 Alkaline Phosphatase 73 U/L (35-105) 12/22/24 09:42 Total Protein 7.2 g/dL (6.6-8.7) 12/22/24 09:42 Albumin 4.1 g/dL (3.5-5.2) 12/22/24 09:42 Globulin 3.1 g/dL (1.3-4.6) 12/22/24 09:42 Lipase 88 U/L (13-60) H 12/22/24 09:42 HCG, Qual Negative (Negative) 12/22/24 09:42 Urine Color Yellow (Yellow) 12/22/24 09:00 Urine Appearance Clear (CLEAR) 12/22/24 09:00 Urine pH 6.5 (5-7) 12/22/24 09:00 Ur Specific [place] 1.013 (1.005-1.030) 12/22/24 09:00 Urine Protein Negative (Negative) 12/22/24 09:00 Urine Glucose (UA) Negative (Normal) 12/22/24 09:00 Urine Ketones Negative (Negative) 12/22/24 09:00 Urine Blood 3+ (Negative) A 12/22/24 09:00 Urine Nitrate Negative (Negative) 12/22/24 09:00 Urine Bilirubin Negative (Negative) 12/22/24 09:00 Urine Urobilinogen 0.2 mg/dL (Negative) 12/22/24 09:00 Ur Leukocyte Esterase Negative (Negative) 12/22/24 09:00 Urine RBC 0-2 /hpf (0-2) 12/22/24 09:00 Urine WBC 0-5 /hpf (0-5) 12/22/24 09:00 Ur Squamous Epith Cells 6-10 /hpf (0-5) 12/22/24 09:00 Amorphous Sediment Not Reportable 12/22/24 09:00 Urine Bacteria Trace /hpf (NONE) 12/22/24 09:00 Hyaline Casts 1.65 /lpf 12/22/24 09:00 All radiology interpretation(s) finalized by discharge Discharge Plan Discharge Patient Disposition: Home Clinical Impression: Right sided abdominal pain Condition: Stable Prescriptions: No Action prednisone 20 mg tablet See Rx Instructions PO .COMPLEX PRN (Reason: joint pain flare) Qty: 30 1RF Rx Instructions: take 1 or 2 tab daily for up to 7 days as needed for arthritis flare PO PRN; azathioprine 50 mg tablet See Rx Instructions PO .COMPLEX Qty: 90 3RF Rx Instructions: take 2 tabs in AM and 1 tab in PM orally; omeprazole 20 mg capsule,delayed release(DR/EC) 20 mg PO DAILY PRN (Reason: Heartburn) cholecalciferol (vitamin D3) 10 mcg (400 unit) capsule 10 mcg PO DAILY albuterol sulfate [Ventolin HFA] 90 mcg/actuation HFA aerosol inhaler 2 puff inhalation QID PRN (Reason: Shortness Of Breath Or Wheezing) Trintellix 20 mg tablet 20 mg PO DAILY Qty: 90 2RF thyroid (pork) 60 mg tablet 60 mg PO DAILY Qty: 60 1RF ropinirole 1 mg tablet 1 mg PO DAILY Qty: 30 0RF Rx Instructions: TAKE ONE TABLET BY MOUTH DAILY buspirone 15 mg tablet 15 mg PO BID Rx Instructions: TAKE ONE TABLET BY MOUTH TWICE DAILY Discharge Orders: Discharge ED (Routine); Ordered 12/22/24 Ordered By: Cristina John Referrals: Chaka Gayle MD [Primary Care Provider, Family Practice] TEM,ED [Family Provider, Emergency Medicine] Patient Instructions: Abdominal Pain (ED), Opioid Safety, Pain Management, Patient Portal & Lee Instructions Activity Restrictions/Additional Instructions: As we discussed, your blood work here was unremarkable. Urinalysis did have blood but did not appear to be infected. Your CT scan did not visualize any obvious stone in the right ureter. No other acute abnormalities were appreciated. Recommend follow-up with your primary care provider next week if symptoms have not improved. You may return to the emergency department at anytime for any further concerns you may have or new or worsening symptoms. Print Language: Hungarian Coding Level of Care Code ED Silversmith Apprentice for Genia Turner
[2024-12-22 10:59] LABS: Add Urine Microscopic? YES
--- NOTE | 2024-12-22 11:01 | CT_ITS ---
WS: [id number] Exam: CT kidney stone [id number] Date/Time of Exam: 12/22/2024 11:01 AM Reason For Exam: R abdominal pain DLP: 1073.[address] scans at [facility] use at least one of these dose optimization techniques: automated exposure control; mA and/or kV adjustment per patient size (includes targeted exams where dose is matched to clinical indication); or iterative reconstruction. Comparison 06/17/2024. There are multiple nonobstructing stones in both kidneys. There is mild fullness of the RIGHT renal pelvis and mild periureteral stranding about the proximal RIGHT ureter but no stone can be identified in the ureters. The lower ureters are nondilated. Unremarkable urinary bladder. The liver, gallbladder, and adrenal glands appear normal. No renal mass or cyst noted. The abdominal aorta is normal in caliber. The stomach and spleen appear normal. No filling defects in the gallbladder. Small bowel loops are unremarkable. Normal appendix. No significant large bowel abnormality seen. No lymphadenopathy or free air. No mass or adenopathy in the pelvis. No significant abdominal wall defect. Small fat filled umbilical hernia. The lung bases are clear. No destructive bone lesions. CT/CT kidney stone [id number] IMPRESSION: 1. Nonobstructing stones in both kidneys. No ureteral stones. 2. Mild fullness of the RIGHT renal pelvis and proximal RIGHT ureter with periu reteral stranding. No calcified stone can be identified in the RIGHT ureter. Si milar findings on the prior study. Changes could be secondary to recently passe d stone or infection. Changes could also be chronic.
[2024-12-22 11:06] VITALS: BP 122/76; PULSE 78; RESP 18; O2SAT 93
[2024-12-22 11:18] VITALS: RESP 18
[2024-12-22] MEDS: morphine 4 mg/mL SDV 1 mL IVP ×2 (11:18→12:22)
[2024-12-22] MEDS: ondansetron 2 mg/ML SDV 2 mL 4 MG IVP (11:19)
[2024-12-22 12:22] VITALS: RESP 18
[2024-12-22 12:27] VITALS: BP 126/82; PULSE 88; RESP 16; O2SAT 95
== END 2024-12-22 12:28 | disposition home or self-care (01) ==
PROVIDERS: Family Medicine; Emergency Provider Physician Assistant; PCP Family Medicine
DX: R10.9 Unspecified abdominal pain (principal); F17.210 Nicotine dependence, cigarettes, uncomplicated; Z86.73 Personal history of transient ischemic attack (TIA), and cerebral infarction without residual deficits
CPT/HCPCS: 36415; 74176; 80053; 81001; 83690; 84703; 85025; 96374; 96375; 96376; 99285; J2270; J2405; J7030

== ENCOUNTER 2025-03-29 08:02 | Emergency (ER) | payer MEDICAID, SELFPAY ==
--- OUTSIDE RECORDS SUMMARY | 2024-04-08 04:00 | XMS_ITS ---
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
--- OUTSIDE RECORDS SUMMARY | 2024-04-09 04:00 | XMS_ITS ---
Author Organization [facility] Address [address] [place] [address] Support Name Relationship Address , Chaka Zak Emergency Contact Unknown Unavailable Patrice Fiore Guarantor Unknown [phone] Care Team Providers Care Music Journalist Name Role Phone Robert Cavazos Primary Care Provider Unavailabl e Migration, Provider Unavailable Unavailable Allergies Allergen (clinical drug ingredient) Drug/Non Drug Allergy documented on EMR Reaction Allergy Type Onset Date Status ibuprofen Ibuprofen Unknown Drug Allergy Active bismuth subsalicylate Pepto-Bismol Unknown Drug Allergy Active Latex Latex Unknown Allergy Active tramadol Tramadol Unknown Drug Allergy Active REASON FOR VISIT EMR-Adrien Medications Medication SIG (Take, Route, Frequency, Duration) Notes Start Date End Date Status PriLOSEC *Pick strength-f orm from Medispan for eRX* Active Trintellix *Pick strength-f orm from [employer]pan for eRX* Active Social History Social History Additional Details Category Social Info Options Details Migrated Social History Migrated Social History Alcoholic beverages? - No, Currently on disability? - No, Drug or substance abuse? - No, Involved in any legal proceedings or lawsuits? - No, Marital Status - , Nonprescription drug use? - No, Participation in detoxification or rehabilitation - No, Smoking - 1 PPD, Smoking status (MU) - Current every day smoker, Working currently? - No Encounters Encounter Location Date Provider Diagnosis Migrated_Facility 0 0 04/09/2024 Provider Migration Plan Of Treatment No Information Progress Notes * Patrice FIOREDOB:[birth year] (34 yo F)Acc No.[id number]:04/09/2024 Patient: Ptarice JOEL :1990 A ge:33 Y S ex:Female Address:[address] [place] [address], [place], [address] Subjective: * Chief Complaints: * E MR-Adrien * Surgical History: section Colonoscopy Endoscopy Hemorrhoidectomy Tonsillectomy * Family History: M igrated Family History: : Cancer, c hronic pain, D iabetes, f ibromyalgia, H eart disease, p sychiatric problems, R heumatoid arthritis, S troke, v ascular disease.? * Social History: M igrated Social History: M igrated Social History: Alcoholic beverages? - No, C urrently on disability? - No, D rug or substance abuse? - No, I nvolved in any legal proceedings or lawsuits? - No, M arital Status - , N onprescription drug use? - No, P articipation in detoxification or rehabilitation - No, S moking - 1 PPD, S moking status (MU) - Current every day smoker, W orking currently? - No. * Medications: T akingTrintellix , Notes to Pharmacist: *Pick strength-form from Medispan for eRX*PriLOSEC , Notes to Pharmacist: *Pick strength-form from Medispan for eRX*Taking Trintellix , Notes to Pharmacist: *Pick strength-form from Medispan for eRX*Taking PriLOSEC , Notes to Pharmacist: *Pick strength-form from Medispan for eRX* * Allergies: P epto-Bismol: AllergyTramadol: AllergyIbuprofen: AllergyLatex: Allergy * * Date:
--- OUTSIDE RECORDS SUMMARY | 2025-03-29 08:07 | XMS_ITS | Patient Health Record ---
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 Name Role Phone Robert Cavazos Primary Care Provider Unavailabl e Migration, Provider Unavailable Unavailable Reason For Referral No Information Medications Medication SIG (Take, Route, Frequency, Duration) [...] Diagnosis Migrated_Facility 0 0 04/08/2024 Provider Migration Migrated_Facility 0 0 04/09/2024 Provider Migration Plan Of Treatment No Information Insurance Providers Payer Name Payer Address Payer Phone Subscriber Number Group Number Insured Name Patient Relationship to Insured Coverage Start Date Coverage End Date Home [facility] Health Plan Medicaid Replacement [address] [place] [phone] [id number] Patrice Pack Self - patient is the insured Medical (General) History Surgical History Surgery Date(Month/Year) section Colonoscopy Endoscopy Hemorrhoidectomy Tonsillectomy
[2025-03-29 08:14] VITALS: BP 153/86; PULSE 106; RESP 16; TEMP 36.6; O2SAT 97; BMI 34.4
[2025-03-29 08:24] LABS: Hematocrit 44.1 % (36-47); Hemoglobin 14.60 g/dL (11.27-16.99); Mean Corpuscular HGB Conc 33.1 g/dL (30-55); Mean Corpuscular Hemoglobin 32.4 pg (27-33); Mean Corpuscular Volume 98.0 fl (85-98); Nucleated Red Blood Cells % 0 %; Platelet Count 313 10^3/cmm (157-399); Red Blood Count 4.50 10^6/uL (3.85-5.65); White Blood Count 15.56 10^3/uL (3.29-11.43)
--- NOTE | 2025-03-29 08:37 | CT_ITS ---
WS: [id number] CT abdomen pelvis wo con [id number] REASON FOR EXAM: Abdominal pain IV CONTRAST ADMINISTERED: None. TECHNIQUE: Multiple axial images through the abdomen and pelvis without intravenous contrast. Coronal and sagittal reconstructions. COMPARISON EXAMINATION: 12/22/2024. TOTAL EXAM DLP: 1105.[address] scans at [facility] use at least one of these dose optimization techniques: automated exposure control; mA and/or kV adjustment per patient size (includes targeted exams where dose is matched to clinical indication); or iterative reconstruction. FINDINGS: Unenhanced liver, spleen, pancreas, and gallbladder are unremarkable. There are 2 right intrarenal calculi. Compared to the previous examination, the larger calculus has displaced from the upper pole into the lower pole of the right kidney remaining intrarenal. There is mild/moderate hydronephrosis and mild dilatation of the proximal right ureter. The dilatation of the renal pelvis and collecting system appears more prominent than on the previous examination. The transition from dilated ureter to normal ureter occurs at the L3 level where there appears to be an angulation and irregularity of the ureter. Minimal dilatation of the left renal pelvis and proximal ureter unchanged compared to the previous study. There are 5 left intrarenal calculi unchanged compared to the previous examination. No intrarenal or ureteral calculi in the abdomen or pelvis. No calculi within the bladder. No other interval change in the abdomen or pelvis compared to the previous examination. CT/CT abdomen pelvis wo con [id number] IMPRESSION: No acute abdominal or pelvic abnormality. Bilateral intra renal calculi as above. No ureteral or bladder calculi. There may be increasing non calculus obstructive uropathy on the right. Urology consultation for right retrograde ureteropyelogram to be considered for evalua tion for stricture or intraluminal ureteral tumor (transitional cell).
[2025-03-29 08:44] LABS: HCG, Serum Qual Negative (Negative)
[2025-03-29 09:11] LABS: Glucose Urine UA Negative (Normal); Nitrate Urine Negative (Negative); Specific Gravity, Urine 1.006 (1.005-1.030)
[2025-03-29 09:13] LABS: Alanine Aminotransferase 8 U/L (0-33); Albumin Level 3.6 g/dL (3.5-5.2); Alkaline Phosphatase 57 U/L (35-105); Anion Gap 15.2 (5-19); Aspartate Amino Transferase 8 U/L (0-32); Blood Urea Nitrogen 13 mg/dL (6-20); Calcium 8.4 mg/dL (8.5-10.5); Carbon Dioxide 21 mmol/L (22-29); Chloride 107 mmol/L (98-107); Creatinine Clr Calc Pharmacy 122.5211; Globulin 3.0 g/dL (1.3-4.6); Glucose 92 mg/dL (65-115); Lipase 57 U/L (13-60); Osmolality Calculated 288 mOsm/kg (285-295); Potassium 4.2 mmol/L (3.5-5.1); Sodium 139 mmol/L (136-145); Total Protein 6.6 g/dL (6.6-8.7)
[2025-03-29 09:16] LABS: Add Urine Microscopic? YES
--- NOTE | 2025-03-29 09:33 | ED_ITS ---
HPI - Abdominal Pain 2 General: Chief Complaint: Abdominal Pain Stated Complaint: Lower back and stomach pain Time Seen by Provider: 03/29/25 08:16 History of Present Illness: 34-year-old female presents emergency ro om with low back pain and right lower quadrant abdominal pain. Symptoms began overnight. She has a history of renal stones states it does not really feel like a stone that she has had in the past. She denies any dysuria urgency or frequency no hematuria. She has chronic diarrhea which remains at her baseline unchanged no hematochezia melena hematemesis or coffee-ground emesis. She has previously had a and subsequently had a hysterectomy. Associated Symptoms: Denies chills, dysuria and fever(s) Related Data Home Medications ?Medication ?Instructions ?Recorded ?Confirmed omeprazole 20 mg capsule,delayed 20 mg PO DAILY PRN He artburn 05/29/22 12/14/24 release albuterol sulfate 90 mcg/actuation 2 puff inhalation Q ID PRN 01/13/23 12/14/24 aerosol inhaler (Ventolin HFA) Shortness Of Breath Or Wheezing cholecalciferol (vitamin D3) 10 10 mcg PO DAILY 12/14/24 mcg (400 unit) capsule buspirone 15 mg tablet 15 mg PO BID 06/17/24 Previous Rx's ?Medication ?Instructions ?Recorded vortioxetine 20 mg tablet 20 mg PO DAILY #90 tabs 08/07 (Trintellix) thyroid (pork) 60 mg tablet 60 mg PO DAILY #60 tabs ropinirole 1 mg tablet 1 mg PO DAILY #30 tabs 08/16 azathioprine 50 mg tablet See Rx Instructions PO .COMP BETTY 03/26/25 #90 tabs prednisone 20 mg tablet See Rx Instructions PO .COMP BETTY 03/26/25 PRN joint pain flare #30 tabs ciprofloxacin HCl 500 mg tablet 500 mg PO BID #14 tabs 03/29/25 (Cipro) hydrocodone 5 mg-acetaminophen 325 1 tab PO Q6H PRN pa in #10 tabs 03/29/25 mg tablet phenazopyridine 200 mg tablet 200 mg PO Q8H 6 doses #6 tabs 03/29/25 (Pyridium) Allergies Allergy/AdvReac Type Severity Reaction Status Date / Time ethinyl estradiol Allergy Severe ALGY-Anaphy Verified 01/25/25 16:03 laxis norethindrone Allergy Severe ALGY-Anaphy Verified 01/25/25 16:03 laxis bismuth subsalicylate (From Allergy SICK TO Verified 12/14/24 11:10 Pepto-Bismol) STOMACH ceftriaxone (From Rocephin) Allergy ADR-Itching Verified 03/29/25 12:14 iodine Allergy ALGY-Rash Verified 12/14/24 11:10 latex Allergy ALGY-Rash Verified 12/14/24 11:10 NSAIDS (Non-Steroidal Allergy Unknown Verified 12/14/24 11:10 Anti-Inflamma tramadol Allergy SICK TO Verified 12/14/24 11:10 STOMACH methotrexate AdvReac Intermediate ADR-Gastrointestinal Verified 12/14/24 11:11 Upset Review of Systems 2 Const: Denies: fever(s) or chills Card: Denies: chest pain Resp: Denies: dyspnea GI: Denies: abdominal pain : Denies: dysuria, urinary frequency or urinary urgency Musc: Denies: neck pain or back pain Skin/Breast: Denies: rash PFSH ED 2 PFSH: Medical History Allergies High risk medication use Immunization counseling Inflammatory arthritis Arthritis Degenerative disc disease Restless leg Calcium deficiency Smoker unmotivated to quit Body mass index (BMI) of greater than 35 to 39.9 with comorbidity Allergic rhinitis due to allergen Hypothyroid (~02/2022) No pertinent past medical history neghx: htn,dm,thyroid,dvt/pe PCP: Dr. aGyle History of CVA (cerebrovascular accident) (~08/2017) Treated at [facility]. Reported as hemorrhagic stroke, from having been on Depo Provera. History of gout Celiac disease was told she had celiac disease after an EGD in 2013, but repeat EGD she was told she did not. She has not followed a gluten free diet. External hemorrhoids Bleeding per rectum Bilateral renal stones Surgical History H/O total hysterectomy H/O esophagogastroduodenoscopy 2 of these 2013 2021 History of colonoscopy (~10/2021) Status post hemorrhoidectomy (~10/2021) performed by [facility] S/P tonsillectomy H/O section (~2018) Primary Emergent C/S --performed by [facility]. Family History Family/Other Breast cancer Maternal Great Grandmother-- dx age unknown Father Diabetes Hypercholesteremia Hypertension Brother Diabetes Hypertension Stroke, Onset Age: 4 Grandmother Diabetes Maternal and Paternal Hypertension Maternal and Paternal Grandfather Diabetes Maternal and Paternal Heart disease Maternal Other Cancer Rheumatoid arthritis Denies family history of Colon cancer Ovarian cancer Uterine cancer Thyroid disease Social History Smoking and tobacco/nicotine status: current every day tobacco/nicotine user cigarettes Packs smoked per day: 1 Alcohol intake: never Substance/Drug Use: never Physical Exam 2 Const: COMMON NORMALS: no acute distress GENERAL APPEARANCE: cooperative and comfortable ORIENTATION/CONSCIOUSNESS: Yes awake, Yes oriented to person, Yes oriented to place and Yes oriented to time HENMT: COMMON NORMALS: normocephalic, atraumatic and hearing grossly normal bilaterally HEAD & SCALP: normocephalic and atraumatic Resp: COMMON NORMALS: normal respiratory effort, No retractions, No use of accessory muscles and clear to auscultation bilaterally AUSCULTATION: clear to auscultation bilaterally Cardio: COMMON NORMALS: regular rate, regular rhythm and No murmurs present (Cardio) RATE: regular rate RHYTHM: regular rhythm GI: COMMON NORMALS: Soft to palpation and No hepatosplenomegaly present A USCULTATION: Yes normoactive bowel sounds PALPATION: Yes Soft to palpation, No Tenderness to palpation present (GI), No Guarding due to palpation present (GI) and Yes No hepatosplenomegaly present Extremity: COMMON NORMALS: normal to inspection, capillary refill normal, no clubbing, cyanosis or edema, no calf tenderness and no pedal edema Neuro: SENSORIUM/ORIENTATION: Yes oriented to person, Yes oriented to place and Yes oriented to time Skin: COMMON NORMALS: no rashes or lesions noted GENERAL SKIN EXAM: no rashes or lesions noted Course 2 Vital Signs: Vital signs: Vital Signs Temperature 97.9 F 03/29/25 08:14 Pulse Rate 77 03/29/25 12:50 Respiratory Rate 16 03/29/25 08:14 Blood Pressure 109/78 03/29/25 12:50 Pulse Oximetry 98 03/29/25 12:50 Oxygen Delivery Me thod Room Air 03/29/25 08:14 MDM - Abdominal Pain Medical Decision Making 32-year-old female presents emergency room complaining of flank pain abdominal pain concern for appendicitis pancreatitis colitis. Labs and imaging reviewed CT shows. Area of question of transition in the right ureter. No evidence of appendicitis pain is improved will discharge home she does have a white count of 15,000 and some white blood cells in her urine we will start her on oral antibiotics. Important for her to follow-up with primary care and urology. If pain becomes uncontrolled return to the emergency room. Patient initially given ceftriaxone in the emergency room however she had a reaction to it she was observed had no further reaction she briefly had a rash and a lot of itching. Will add it to her allergy list for now discharged home on Cipro. Medical Records I reviewed the patient's medical records. Lab Data I reviewed the patient's lab results. 03/29/25 08:19 03/29/25 08:50 Labs/Radiology: Radiology Impressions Abdomen/Pelvis CT 03/29/25 08:37 IMPRESSION: No acute abdominal or pelvic abnormality. Bilateral intra renal calculi as above. No ureteral or bladder calculi. There may be increasing non calculus obstructive uropathy on the right. Urology consultation for right retrograde ureteropyelogram to be considered for evaluation for stricture or intraluminal ureteral tumor (transitional cell). Laboratory Results WBC 15.56 10^3/uL (3.29-11.43) H 03/29/25 08:19 RBC 4.50 10^6/uL (3.85-5.65) 03/29/25 08:19 Hgb 14.60 g/dL (11.27-16.99) 03/29/25 08:19 Hct 44.1 % (36-47) 03/29/25 08:19 MCV 98.0 fl (85-98) 03/29/25 08:19 MCH 32.4 pg (27-33) 03/29/25 08:19 MCHC 33.1 g/dL (30-55) 03/29/25 08:19 RDW 13.1 % (12.1-15.1) 03/29/25 08:19 Plt Count 313 10^3/cmm (157-399) 03/29/25 08:19 MPV 9.3 fL (7.4-10.4) 03/29/25 08:19 Neut % (Auto) 81.4 % 03/29/25 08:19 Lymph % (Auto) 12.4 % 03/29/25 08:19 [place] % (Auto) 4.0 % 03/29/25 08:19 Eos % (Auto) 1.1 % 03/29/25 08:19 Baso % (Auto) 0.4 % 03/29/25 08:19 Neut # (Auto) 12.67 10^3/uL (1.8-7.7) H 03/29/25 08:19 Lymph # (Auto) 1.9 10^3/uL (0.8-4.8) 03/29/25 08:19 [place] # (Auto) 0.6 10^3/uL (0.2-0.9) 03/29/25 08:19 Eos # (Auto) 0.2 10^3/uL (0.0-0.8) 03/29/25 08:19 Baso # (Auto) 0.1 10^3/uL (0.0-0.1) 03/29/25 08:19 Nucleated RBC % (auto) 0 % 03/29/25 08:19 Nucleated RBCs # 0.0 /100WBC 03/29/25 08:19 Sodium 139 mmol/L (136-145) 03/29/25 08:50 Potassium 4.2 mmol/L (3.5-5.1) 03/29/25 08:50 Chloride 107 mmol/L (98-107) 03/29/25 08:50 Carbon Dioxide 21 mmol/L (22-29) L 03/29/25 08:50 Anion Gap 15.2 (5-19) 03/29/25 08:50 BUN 13 mg/dL (6-20) 03/29/25 08:50 Creatinine 0.8 mg/dL (0.5-0.9) 03/29/25 08:50 GFR Calculation 83.1 mL/min (90-130) L 03/29/25 08:50 Glucose 92 mg/dL (65-115) 03/29/25 08:50 Calculated Osmolality 288 mOsm/kg (285-295) 03/29/25 08:50 Calcium 8.4 mg/dL (8.5-10.5) L 03/29/25 08:50 Total Bilirubin 0.4 mg/dL (0.15-1.2) 03/29/25 08:50 AST 8 U/L (0-32) 03/29/25 08:50 ALT 8 U/L (0-33) 03/29/25 08:50 Alkaline Phosphatase 57 U/L (35-105) 03/29/25 08:50 Total Protein 6.6 g/dL (6.6-8.7) 03/29/25 08:50 Albumin 3.6 g/dL (3.5-5.2) 03/29/25 08:50 Globulin 3.0 g/dL (1.3-4.6) 03/29/25 08:50 Lipase 57 U/L (13-60) 03/29/25 08:50 HCG, Qual Negative (Negative) 03/29/25 08:19 Urine Color Yellow (Yellow) 03/29/25 08:58 Urine Appearance Cloudy (CLEAR) A 03/29/25 08:58 Urine pH 6.5 (5-7) 03/29/25 08:58 Ur Specific [place] 1.006 (1.005-1.030) 03/29/25 08:58 Urine Protein Negative (Negative) 03/29/25 08:58 Urine Glucose (UA) Negative (Normal) 03/29/25 08:58 Urine Ketones Negative (Negative) 03/29/25 08:58 Urine Blood 2+ (Negative) A 03/29/25 08:58 Urine Nitrate Negative (Negative) 03/29/25 08:58 Urine Bilirubin Negative (Negative) 03/29/25 08:58 Urine Urobilinogen 0.2 mg/dL (Negative) 03/29/25 08:58 Ur Leukocyte Esterase Negative (Negative) 03/29/25 08:58 Urine RBC 3-5 /hpf (0-2) 03/29/25 08:58 Urine WBC 11-20 /hpf (0-5) H 03/29/25 08:58 Ur Squamous Epith Cells 11-20 /hpf (0-5) H 03/29/25 08:58 Amorphous Sediment Not Reportable 03/29/25 08:58 Urine Bacteria Trace /hpf (NONE) 03/29/25 08:58 Hyaline Casts 0-4 /lpf H 03/29/25 08:58 All radiology interpretation(s) finalized by discharge Discharge Plan Discharge Patient Disposition: Home Clinical Impression: Pyelonephritis, Ureteral stricture, right Condition: Stable Prescriptions: New hydrocodone-acetaminophen 5-325 mg tablet 1 tab PO Q6H PRN (Reason: pain) Qty: 10 0RF phenazopyridine [Pyridium] 200 mg tablet 200 mg PO Q8H Qty: 6 0RF ciprofloxacin HCl [Cipro] 500 mg tablet 500 mg PO BID Qty: 14 0RF No Action omeprazole 20 mg capsule,delayed release(DR/EC) 20 mg PO DAILY PRN (Reason: Heartburn) cholecalciferol (vitamin D3) 10 mcg (400 unit) capsule 10 mcg PO DAILY albuterol sulfate [Ventolin HFA] 90 mcg/actuation HFA aerosol inhaler 2 puff inhalation QID PRN (Reason: Shortness Of Breath Or Wheezing) Trintellix 20 mg tablet 20 mg PO DAILY Qty: 90 2RF thyroid (pork) 60 mg tablet 60 mg PO DAILY Qty: 60 1RF ropinirole 1 mg tablet 1 mg PO DAILY Qty: 30 0RF Rx Instructions: TAKE ONE TABLET BY MOUTH DAILY prednisone 20 mg tablet See Rx Instructions PO .COMPLEX PRN (Reason: joint pain flare) Qty: 30 1RF Rx Instructions: take 1 or 2 tab daily for up to 7 days as needed for arthritis flare PO PRN; azathioprine 50 mg tablet See Rx Instructions PO .COMPLEX Qty: 90 3RF Rx Instructions: take 2 tabs in AM and 1 tab in PM orally; buspirone 15 mg tablet 15 mg PO BID Rx Instructions: TAKE ONE TABLET BY MOUTH TWICE DAILY Discharge Orders: Discharge ED (Routine); Ordered 03/29/25 Ordered By: Elvin Beard Referrals: Chaka Gayle MD [Primary Care Provider, Family Practice] Discharge Diet: Usual diet Discharge Activity: Increase activity as tolerated Patient Instructions: Opioid Safety, Pain Management, Patient Portal & Lee Instructions Activity Restrictions/Additional Instructions: Thank you for choosing [facility] for your healthcare needs today. It is very important that you follow up as instructed or that you return to the Emergency Department should you have concerns or if your condition changes or worsens in any way. Emergency department visits are focused on emergent conditions, in some cases you may require further evaluation on an outpatient basis. You were seen in the emergency room with complaint of flank pain. On evaluation you are found to have a kidney infection (pyelonephritis). There was some abnormalities in the proximal left ureter. This should be followed up with a repeat CT. Your primary care doctor can review the ER note and of the scans that were done in the ER to discuss with you further evaluation. You should have this follow-up sometime within the next 2 to 3 weeks. (Please note that included in your discharge packet is information concerning opioid safety and pain management. This information is given to all patients were discharged from the ER regardless of their discharge diagnosis or the medicines they usually take or are prescribed.) Print Language: Hungarian Coding Level of Care Code ED Instructional Interventionist for Genia Turner
[2025-03-29] MEDS: morphine 4 mg/mL SDV 1 mL IVP (09:51)
[2025-03-29] MEDS: cefTRIAXone 2,000 mg SDV 2000 MG IVP (11:56)
[2025-03-29] MEDS: diphenhydrAMINE 50 mg/mL SDV 1mL IVP (12:09)
[2025-03-29] MEDS: HYDROmorphone 0.5 MG/0.5 ML INJ IVP (12:09)
[2025-03-29 12:15] VITALS: BP 103/61; PULSE 73; O2SAT 97
[2025-03-29 12:50] VITALS: BP 109/78; PULSE 77; O2SAT 98
== END 2025-03-29 12:51 | disposition home or self-care (01) ==
PROVIDERS: Emergency Provider Family Medicine; PCP Family Medicine
DX: N11.1 Chronic obstructive pyelonephritis (principal); F17.210 Nicotine dependence, cigarettes, uncomplicated; Z86.73 Personal history of transient ischemic attack (TIA), and cerebral infarction without residual deficits
CPT/HCPCS: 74176; 80053; 81001; 83690; 84703; 85025; 96361; 96374; 96375; 99285; J0696; J1171; J1200; J2270; J7030; J9999

== ENCOUNTER 2025-05-22 13:47 | Outpatient (CLI) | payer MEDICAID, SELFPAY ==
--- NOTE | 2025-05-22 14:01 | XR_ITS ---
WS: [id number] XR lumbar spine min 4V [id number] REASON FOR EXAM: LUMBAR RADICULOPATHY FINDINGS: Normal lumbar curvatures. No significant vertebral body abnormality. Minimal osteophytosis of the lumbar vertebrae L1-L5. Mild narrowing of the L5-S1 disc space. Remaining disc spaces are intact and relatively well preserved. No spondylolysis. No neutral spondylolisthesis. Multiple bilateral small intrarenal calculi with one large calculus, 10 mm, on the right. XR/XR lumbar spine min 4V [id number] IMPRESSION: Minimal degenerative spondylosis. Bilateral intrarenal calculi.
== END 2025-05-22 13:48 | disposition home or self-care (01) ==
PROVIDERS: PCP Family Medicine; Visit Provider Student in an Organized Health Care Education/Training Program
DX: M54.50 Low back pain, unspecified (principal); N20.0 Calculus of kidney; M51.379 Other intervertebral disc degeneration, lumbosacral region without mention of lumbar back pain or lower extremity pain
CPT/HCPCS: 72110